=== PATIENT | male | born 1960 | race African-American/Black ===

== ENCOUNTER 2018-11-15 15:45 | Emergency (ER) | payer SELFPAY ==
[2018-11-15 16:53] LABS: #Basophils 0.1 thou/uL (0.0-0.2); #Eosinphils 0.2 thou/uL (0.0-0.7); #Lymphocytes 1.4 thou/uL (1.20-3.40); #Monocytes 0.6 thou/uL (0.11-0.59); #Neutrophils 3.2 thou/uL (1.40-6.50); %Basophils 1.5 % (0.0-1.0); %Lymphocytes 26.1 % (21.0-51.0); %Monocytes 11.2 % (0.0-10.0); %Neutrophils 57.2 % (42.0-75.0); Hemoglobin 15.7 g/dL (14.0-18.0); Mean Corpuscular HGB CONC 34.8 g/dL (32.0-36.0); Mean Corpuscular Hemoglobin 32.8 pg (27.0-31.0); Mean Corpuscular Volume 94.4 fL (78.0-98.0); Mean Platelet Volume 7.2 fL (7.4-10.4); Platelet Count 301 thou/uL (130-400); RBC Distribution Width 11.5 % (11.5-14.5); Red Blood Cell (RBC) Count 4.78 mill/uL (4.70-6.10); White Blood Cell (WBC) Count 5.5 thou/uL (4.8-10.8)
[2018-11-15 17:15] LABS: ALT (SGPT) 117 U/L (8-55); AST (SGOT) 63 U/L (5-34); Albumin 4.4 g/dL (3.5-5.0); Alkaline Phosphatase 70 U/L (40-150); Anion Gap 13 mmol/L (10-20); BUN (Urea Nitrogen) 11 mg/dL (8.4-25.7); Bilirubin, Total 0.6 mg/dL (0.2-1.2); Calc. Creatinine Clearance 0 mL/min (70-130); Calcium 9.4 mg/dL (7.8-10.44); Carbon Dioxide 22 mmol/L (22-29); Chloride 109 mmol/L (98-107); Estimated GFR-MDRD 76; Globulin 3.7 g/dL (2.4-3.5); Glucose 108 mg/dL (70-105); Potassium 3.2 mmol/L (3.5-5.1); Protein, Total 8.1 g/dL (6.0-8.3); Sodium 141 mmol/L (136-145)
[2018-11-15] MEDS ORDERED: Pot Chloride/Pot Bicarb/Cit Ac 25 mEq Effervescent Tablet PO SCH (17:30)
== END 2018-11-15 18:17 | disposition home or self-care (01) ==
LOC: ERS 15:45
DX: R19.7 Diarrhea, unspecified (principal); E87.6 Hypokalemia; I10 Essential (primary) hypertension; F17.210 Nicotine dependence, cigarettes, uncomplicated; Z79.899 Other long term (current) drug therapy
CPT/HCPCS: 80053; 85025; 96360

== ENCOUNTER 2020-08-17 02:11 | Inpatient (IN) | payer OTHER, SELFPAY ==
[2020-08-17 02:32] LABS: #Basophils 0.1 thou/uL (0.0-0.2); #Eosinphils 0.1 thou/uL (0.0-0.7); #Lymphocytes 1.4 thou/uL (1.20-3.40); #Monocytes 0.9 thou/uL (0.11-0.59); #Neutrophils 4.9 thou/uL (1.40-6.50); %Basophils 1.2 % (0.0-1.0); %Eosinophils 1.6 % (0.0-10.0); %Lymphocytes 18.7 % (21.0-51.0); %Monocytes 12.2 % (0.0-10.0); %Neutrophils 66.2 % (42.0-75.0); Hemoglobin 14.3 g/dL (14.0-18.0); Mean Corpuscular Hemoglobin 32.1 pg (27.0-31.0); Mean Corpuscular Volume 94.4 fL (78.0-98.0); Mean Platelet Volume 6.6 fL (7.4-10.4); Platelet Count 368 thou/uL (130-400); RBC Distribution Width 11.8 % (11.5-14.5); Red Blood Cell (RBC) Count 4.44 mill/uL (4.70-6.10); White Blood Cell (WBC) Count 7.4 thou/uL (4.8-10.8)
[2020-08-17] MEDS ORDERED: predniSONE 20 MG TAB ONE (02:47)
[2020-08-17] MEDS ORDERED: Furosemide 40 MG/4 ML VIAL ONE ×2 (02:47→10:23)
[2020-08-17] MEDS ORDERED: cefTRIAXone\\ROCEPHIN 1 GM VIAL ONE (02:47)
[2020-08-17 02:52] LABS: ALT (SGPT) 26 U/L (8-55); AST (SGOT) 23 U/L (5-34); Albumin 3.6 g/dL (3.5-5.0); Alkaline Phosphatase 57 U/L (40-110); Anion Gap 14 mmol/L (10-20); BUN (Urea Nitrogen) 12 mg/dL (8.4-25.7); Bilirubin, Total 0.8 mg/dL (0.2-1.2); Calc. Creatinine Clearance 0 mL/min (70-130); Calcium 8.7 mg/dL (7.8-10.44); Carbon Dioxide 26 mmol/L (22-29); Chloride 106 mmol/L (98-107); Estimated GFR-MDRD 79; Globulin 3.6 g/dL (2.4-3.5); Glucose 116 mg/dL (70-105); Potassium 3.6 mmol/L (3.5-5.1); Protein, Total 7.2 g/dL (6.0-8.3); Sodium 142 mmol/L (136-145)
[2020-08-17 03:15] LABS: CKMB 5.5 ng/mL (0-6.6)
[2020-08-17 03:16] LABS: Lactic Acid 1.2 mmol/L (0.5-2.2)
[2020-08-17] MEDS ORDERED: Azithromycin 500 MG VIAL ONE (03:53)
[2020-08-17] MEDS ORDERED: Nitroglycerin 2% Ointment 1 INCH/1 GM Packet ONE (03:53)
[2020-08-17] MEDS ORDERED: Enoxaparin Sodium 100 MG/ML SYRINGE ONE (04:29)
[2020-08-17 07:04] LABS: SARS-CoV-2 NAA Rapid Test Not Detected (NotDetected)
--- NOTE | 2020-08-17 07:09 | RAD ---
RADIOGRAPH CHEST 1 VIEW: DATE: 08/17/2020 TIME: 2:28 AM HISTORY: 59-year-old male with dyspnea COMPARISON: none FINDINGS: Mild cardiomegaly. Diffuse groundglass and nodular interstitial infiltrates bilaterally. No effacemen t of lateral costophrenic angles. No pneumothorax. IMPRESSION: 1) groundglass and nodular interstitial infiltrates diffusely, especially in lower lung zones, especi ally on the right. 2.) Mild cardiomegaly
--- NOTE | 2020-08-17 08:04 | CT ---
PRELIMINARY REPORT/[facility]/EMERGENCY AFTER HOURS PROCEDURE: EXAM: CTA Chest with Intravenous Contrast CLINICAL HISTORY: DYSPNEA X3 NIGHTS; PT LAYS DOWN AND COPD IS EXACERBATED WITH DIFFICULTY BREATHING TECHNIQUE: Axial CTA images of the chest with intravenous contrast. Three-dimensional MIP/volume rendered reform ations were performed. CONTRAST: With; ISOVUE 370, 90ML COMPARISON: None provided. FINDINGS: PULMONARY ARTERIES There is no intraluminal filling defect suspicious for PE. AORTA No thoracic aortic aneurysm or dissection. LUNGS bilateral groundglass opacities, hyperinflated lungs, cysts versus emphysematous changes in the upper lobes. PLEURAL SPACES No pleural effusion. No pneumothorax. HEART AND MEDIASTINUM Marked cardiomegaly. No significant pericardial effusion. LYMPH NODES There is right hilar adenopathy. BONES No focal osseous abnormality or acute fracture. CHEST WALL AND UPPER ABDOMEN Images through the upper abdomen are unremarkable. The chest wall is unremarkable. IMPRESSION: Bilateral groundglass opacities suggestive of COVID. Marked cardiomegaly. Moderate sized right pleural effusion. Coronary vascular calcifications, advanced for age, recommend workup for coronary artery disease. One month follow-up CT recommended to reassess the adenopathy that is present. ELECTRONICALLY SIGNED BY: Evan Washington MD Aug 17, 2020 3:29:05 AM NEUROSURGICAL PHYSICIAN ASSISTANT This report is intended for review by the ordering physician only, in accordance of law. If you recei ve this report in error, please call [facility] at [phone]. FINAL REPORT EMERGENCY AFTER HOURS CTA CHEST: Axial tomograms obtained with multiplanar reconstruction and 3D postprocessing. FINDINGS: No evidence of pulmonary embolus. There is mediastinal and hilar adenopathy. There are ground-glass t ype infiltrates seen throughout both lungs, more prominent in the lower lobes. Small right pleural ef fusion. I am in agreement with the preliminary report issued by [facility]. POS: AGW
[2020-08-17 08:54] LABS: Troponin I 0.043 ng/mL (< 0.028)
[2020-08-17] MEDS ORDERED: Electrolyte Replacement Protoc 1 EACH EACH FS SCH (09:00)
[2020-08-17] MEDS ORDERED: Electrolyte Replacement Protocol FS PRN (09:15)
[2020-08-17 09:23] LABS: #Lymphocytes 0.6 thou/uL (1.20-3.40); #Monocytes 0.1 thou/uL (0.11-0.59); #Neutrophils 4.9 thou/uL (1.40-6.50); %Eosinophils 0.2 % (0.0-10.0); %Monocytes 2.3 % (0.0-10.0); %Neutrophils 87.5 % (42.0-75.0); Hemoglobin 15.4 g/dL (14.0-18.0); Mean Corpuscular HGB CONC 33.1 g/dL (32.0-36.0); Mean Corpuscular Hemoglobin 31.5 pg (27.0-31.0); Platelet Count 379 thou/uL (130-400); Red Blood Cell (RBC) Count 4.89 mill/uL (4.70-6.10); White Blood Cell (WBC) Count 5.6 thou/uL (4.8-10.8)
[2020-08-17] MEDS ORDERED: Furosemide 40 MG/4 ML VIAL SLOW IVP SCH (09:30)
[2020-08-17 09:53] LABS: ALT (SGPT) 30 U/L (8-55); AST (SGOT) 31 U/L (5-34); Albumin 3.8 g/dL (3.5-5.0); Alkaline Phosphatase 57 U/L (40-110); Anion Gap 17 mmol/L (10-20); BUN (Urea Nitrogen) 11 mg/dL (8.4-25.7); Bilirubin, Total 1.1 mg/dL (0.2-1.2); Calc. Creatinine Clearance 118 mL/min (70-130); Carbon Dioxide 22 mmol/L (22-29); Chloride 105 mmol/L (98-107); Estimated GFR-MDRD Greater than 90; Globulin 4.6 g/dL (2.4-3.5); Glucose 144 mg/dL (70-105); Protein, Total 8.4 g/dL (6.0-8.3); Sodium 140 mmol/L (136-145)
[2020-08-17] MEDS ORDERED: Aspirin Chewable 81 MG TAB ONE (10:23)
[2020-08-17] MEDS: Aspirin Chewable 81 MG TAB PO SCH (10:45)
[2020-08-17] MEDS: Atorvastatin Calcium 40 MG TAB PO SCH (10:45)
[2020-08-17 12:54] LABS: Actual Bicarbonate (HCO3a) 26.8 mEq/L (22-28); Analyzer IN Cardio ER; Base Excess (BEa) 2.2 mEq/L (-2.0 to +3.0); CO2 Tension 41.6 mmHg (35.0-45.0); Calcium, Ionized (arterial) 1.16 mmol/L (1.12-1.30); Carboxyhemoglobin (COHb) 1.3 gm% (0.0-3.0); Hemoglobin (Hb) 15.8 g/dL (14.0-18.0); O2 Tension (PaO2), arterial 63.2 mmHg (80.0-100.0); Potassium - ABG Lab 3.58 mmol/L (3.70-5.30); pH, Arterial 7.43 (7.35-7.45)
[2020-08-17 12:55] LABS: Puncture Site RRA
[2020-08-17] MEDS ORDERED: Iopamidol 370 76% 100 ML VIAL ONE (13:24)
[2020-08-17] MEDS ORDERED: Acetaminophen 325 MG TAB PO PRN (13:32)
[2020-08-17 13:48] VITALS: BMI 28.9
[2020-08-17] MEDS ORDERED: Spironolactone 25 MG TAB PO SCH (14:15)
[2020-08-17] MEDS: Ipratropium/Albuterol Sulfate 4 GM AER IH SCH ×2 (14:38→21:54)
--- NOTE | 2020-08-17 15:02 | CON ---
DATE OF CONSULTATION: CONSULTING PHYSICIAN: Ileana Snowden MD HISTORY OF PRESENT ILLNESS: The patient is a 59-year-old gentleman with history of cardiomyopathy, who presents with increasing dyspnea. The patient was seen at [facility] early this year for congestive heart failure. He underwent an echocardiogram. The patient was found to have an ejection fraction of 35% to 40% with the inferior wall and anterior wall akinetic. The patient was treated with medical therapy. The patient states he has been compliant with medication. He has not had any further followup. The patient presented with increasing dyspnea. The patient denies having any chest discomfort. He states that he has become progressively more short of breath. He denies having any fever. PAST MEDICAL HISTORY: 1. Congestive heart failure. 2. Hypertension. PAST SURGICAL HISTORY: None. SOCIAL HISTORY: Long history of illicit drug use and tobacco abuse. FAMILY HISTORY: Strong family history of heart disease. ALLERGIES: NO KNOWN DRUG ALLERGIES. MEDICATIONS: 1. Losartan 50 daily. 2. Aspirin 81 daily. 3. Lipitor 40 at bedtime. PHYSICAL EXAMINATION: VITAL SIGNS: Blood pressure 118/74, heart rate was 83. Physical exam was deferred due to with suspected COVID. LABORATORY RESULTS: White blood cell count 5.6, hemoglobin 15.4, hematocrit 46.5, platelets are 379. Sodium was 140,, potassium 4.0, chloride 105, bicarbonate 22, BUN 11, creatinine 0.9, and glucose 144. EKG normal sinus rhythm, left atrial enlargement with a left bundle-branch block. IMPRESSION: 1. Congestive heart failure. 2. COVID positive possible 3. Severe cardiomyopathy. 4. Left bundle-branch block. 5. Illicit drug use. 6. Tobacco abuse. PLAN: This unfortunate gentleman has now developed a severe cardiomyopathy and echocardiogram revealed a left ventricular ejection fraction of only 10% to 15%. The patient also has a CT scan as very suggestive of a COVID pneumonia. From a cardiac standpoint, he has been diuresed with IV Lasix. We would recommend adding spironolactone. The patient should be on Entresto and this medication will be started during this hospitalization. The patient will also need to be on a beta-angel therapy. The patient will undergo an ID consultation to see if he has COVID pneumonitis. The patient's prognosis is very guarded. Job ID: [id number] [facility]
[2020-08-17] MEDS: Morphine 4 MG/ML VIAL SLOW IVP PRN (21:54)
--- NOTE | 2020-08-18 00:57 | HP ---
CHIEF COMPLAINT: Shortness of breath. HISTORY OF PRESENT ILLNESS: The patient is a very pleasant 59-year-old male, who presents to the hospital with complaints of shortness of breath going on for the past few days. The patient states that he has been compliant with his medications. However, he has been having worsening shortness of breath on exertion and also when he is sleeping at night. He denies any fevers or chills. He states that he has been having some sputum production which has been greenish in color. The patient stated that he came into the hospital since his shortness of breath gotten worse. He denies any chest tightness, however, complains of abdominal pain and chest pain because of the cough. PAST MEDICAL HISTORY: He has a history of hypertension, COPD, per patient. PAST SURGICAL HISTORY: Denies. SOCIAL HISTORY: He has a history of tobacco abuse and drug use. Denies any drinking history. He is a full code. Lives alone. FAMILY HISTORY: History of heart disease. He also has a history of congestive heart failure. ALLERGIES: NO KNOWN DRUG ALLERGIES. MEDICATIONS: 1. Aspirin 81 mg daily. 2. Lipitor 20 mg daily. 3. Losartan 50 mg daily. REVIEW OF SYSTEMS: All negative, except for the ones mentioned above in the HPI. PHYSICAL EXAMINATION: VITAL SIGNS: As of the following; temperature 98.6, 89, 20, 96% on 2 L, 132/74. GENERAL: He is awake, alert, and oriented x3. Does not appear in distress. CV: S1 AND S2 present. No murmurs, rubs, gallops. LUNGS: Have decreased crackles to bilateral lower lung bases. ABDOMEN: Soft. Bowel sounds are present x2. Mild pain upon palpation to all around abdominal wall area. NEUROVASCULAR: No focal deficits noted. SKIN: No cuts, lesions, or bruises noted. LOWER EXTREMITIES: No edema. Pedal pulses are present x2. LABORATORY RESULTS: WBCs of 7.4, hemoglobin of 14.3, hematocrit of 41.9, his platelets are 368. Chemistry, sodium 140, potassium 4.0, BUN of 11, creatinine 0.90. His LDH is 346. His troponin is mildly elevated at 0.043 with mildly elevated CRP of 0.94. His serologies for COVID was negative. However, the patient's CTA was negative for any acute PE, however, had some bilateral ground glass opacity suggesting of COVID. The patient does have some mediastinal hilar adenopathy also. Laboratory results are as of the following. The patient's blood gas . Chemistry: Sodium of 140, potassium of 4.0, BUN of 11, creatinine 0.90. LDH of 346. C-reactive protein 0.94. ASSESSMENT AND PLAN: The patient is a very pleasant 59-year-old male presents to the hospital with shortness of breath. 1. Acute hypoxic respiratory failure. The patient initially was significantly hypoxic, was on BiPAP then he was downgraded to 3 L nasal cannula. The patient's CT does indicate possible COVID. However, he states that he has been having a cough and colored sputum production for the past 3 or 4 days. I will start him on some prophylactic community-acquired pneumonia antibiotics. I am hesitant to take him off COVID precautions. I will get Infectious Disease for further consultation since his EKG did indicate left bundle branch block, which I am concerned that this maybe new. I do not have previous EKG for comparison. We will put him on aspirin and statin. Cardiology has been consulted. Also, we will order an echocardiogram. 2. Shortness of breath, most likely possible COVID versus heart failure. The patient will continue to receive diuretics. However, we will continue antibiotics for now. I am not sure if this is viral versus bacterial. However, the CT scan upon my interpretation does not appear to be bacterial. No consolidation is noted. This could also be pulmonary congestion or pulmonary edema that could present this way. 3. Hypertension. We will continue his home medications. 4. Chronic obstructive pulmonary disease, unclear if this is an acute exacerbation versus heart failure exacerbation. I will go ahead and put him on some Solu-Medrol 40 mg daily and then go from there. 5. Deep venous thrombosis prophylaxis. We will put the patient on SCDs and subcu Lovenox. Job ID: [id number]
--- NOTE | 2020-08-18 01:30 | CON ---
DATE OF CONSULTATION: 08/17/2020 REASON FOR CONSULTATION: Evaluate respiratory symptoms and possibility of SARS-CoV-2 infection. HISTORY OF PRESENT ILLNESS: A 59-year-old who has one prior visit to the emergency room at the beginning of 2019, when he presented with diarrhea and a history of hypertension and back pain. His vital signs then were pretty unremarkable. The diagnosis was diarrhea and low potassium. He was released after that. There were no further visits until now. This time, he has been sick now for about 4 days with progressively worsening dyspnea, orthopnea, some cough. No sputum production. No fever or chills. No anosmia. No headaches. No chest pain. No back pain. No abdominal pain or diarrhea. No genitourinary symptoms. On arrival, his BP was 190/120 and he took two doses of nitro and levels came down. His O2 saturations were 80% on room air. His BP went down to 130/90, respiratory rate 37, temperature 98.5, O2 saturations were up to 98 on a nonrebreathing Ventimask. The patient's lung exam showed wheezing, poor air movement. Heart exam showed tachycardia. Normal S1, S2. Abdomen is soft. LABORATORY DATA: Initial findings included a white cell count of 7.4, lymphocytes are 1.4, hemoglobin 14, platelets 368. D-dimer 0.82. A pH of 7.43, pCO2 of 41, PO2 of 63. Sodium 140, creatinine 0.9. Liver profile normal. CRP was 0.94, ferritin 122. SARS-COV RNA PCR was not detected. IMAGING STUDIES: A CT of chest showed no pulmonary embolism. Lungs with bilateral ground-glass opacities and some cysts versus emphysematous changes. Marked cardiomegaly in the chest x-ray with the same opacities seen. Echocardiogram showed EF 10% to 15%, moderately increased left ventricular size. Currently, Mr. Campos is awake and sitting up in bed. He appears comfortable. He has O2 per nasal cannula. PAST MEDICAL HISTORY: Includes hypertension, prior history of alcohol dependency syndrome, history of CHF and "COPD." PAST SURGICAL HISTORY: Negative. 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 He lives in the area with his , has children, but they are grown up. Still smoking about half a pack a day. FAMILY HISTORY: Coronary artery disease. ALLERGIES: NONE. CURRENT MEDICATIONS: 1. Aspirin. 2. Azithromycin. 3. Rocephin. 4. Furosemide. 5. Methylprednisolone. PHYSICAL EXAMINATION: VITAL SIGNS: Temperature 98.6, BP 130/70, heart rate 89, respiratory rate 20, O2 saturation 96 with 2 L nasal cannula. SKIN EXAM: Normal. There is no lymphadenopathy. HEENT: Ocular movements conjugate. Oral cavity normal. NECK: Supple with positive jugular vein distention. LUNGS: Basilar crackles. No wheezing. S1, S2. Regular rate with an S3 noticeable. ABDOMEN: Soft, not distended or tender. No ascites. No bladder distention. EXTREMITIES: No edema. Pulses 1+ in dorsalis pedis. Moves extremities equally. NEUROLOGIC: Cognitive function appears to be intact. Dr. Alston has evaluated the patient. His assessment was CHF, and a CT scan suggestive of COVID pneumonia. ASSESSMENT: 1. Hypertension. 2. Congestive heart failure with advanced cardiomyopathy, not on any treatment. 3. Reports history of chronic obstructive pulmonary disease, but not confirmed with PFTs. His CT scan is suggestive of emphysema. 4. Chronic smoking. 5. Prior history of alcohol dependency syndrome. 6. CT findings that could be suspicious for COVID. DISCUSSION: The differential diagnosis includes pulmonary edema associated with ischemic or non-ischemic cardiomyopathy with possible superimposed atypical pneumonia due to SARS-CoV-2. There are a number of features that are not typical of COVID, the absence of fever and anosmia argue against it but do not rule it out. The initial normal lymphocyte count and the rapid improvement in his oxygenation with diuresis would argue against COVID infection, so I think we need to repeat the test. If the second test is negative, I would stop methylprednisolone, I would recommend to concentrate on managing his cardiomyopathy and repeat the x-rays and see if the infiltrates clear, that would pretty much settle the diagnosis. Sometimes it may be difficult to diagnose SARS-Cov-2 infection when the infection is limited to the lower respiratory tract with no viral replication in the upper respiratory tract. In those cases, the only way to establish the diagnosis is via antibody testing, and we will consider submitting antibody testing in the next few days depending on the clinical, radiological course and the results of the second COVID test. Job ID: [id number] [facility]
[2020-08-18] MEDS: Acetaminophen/Codeine 30-300mg Tablet PO PRN ×2 (02:14→15:33)
[2020-08-18] MEDS: Guaifenesin DM 100-10/5 ML UDCUP PO PRN ×2 (02:17→07:00)
[2020-08-18] MEDS ORDERED: cefTRIAXone\\ROCEPHIN 2 GM in Sodium Chloride 0.9% 100 ML IVPB SCH (03:00)
[2020-08-18] MEDS ORDERED: Azithromycin 500 MG in Sodium Chloride 0.9% 250 ML 250 ML IVPB SCH (04:00)
[2020-08-18 05:49] LABS: #Basophils 0.1 thou/uL (0.0-0.2); #Eosinphils 0.1 thou/uL (0.0-0.7); #Lymphocytes 2.3 thou/uL (1.20-3.40); #Monocytes 1.6 thou/uL (0.11-0.59); #Neutrophils 7.1 thou/uL (1.40-6.50); %Basophils 0.8 % (0.0-1.0); %Lymphocytes 20.8 % (21.0-51.0); %Monocytes 13.8 % (0.0-10.0); %Neutrophils 63.6 % (42.0-75.0); Hemoglobin 15.2 g/dL (14.0-18.0); Mean Corpuscular HGB CONC 33.1 g/dL (32.0-36.0); Mean Corpuscular Hemoglobin 31.2 pg (27.0-31.0); Mean Corpuscular Volume 94.3 fL (78.0-98.0); Mean Platelet Volume 6.8 fL (7.4-10.4); Platelet Count 400 thou/uL (130-400); Red Blood Cell (RBC) Count 4.87 mill/uL (4.70-6.10); White Blood Cell (WBC) Count 11.2 thou/uL (4.8-10.8)
[2020-08-18 06:13] LABS: Anion Gap 10 mmol/L (10-20); BUN (Urea Nitrogen) 17 mg/dL (8.4-25.7); Calc. Creatinine Clearance 110 mL/min (70-130); Carbon Dioxide 31 mmol/L (22-29); Chloride 103 mmol/L (98-107); Estimated GFR-MDRD Greater than 90; Glucose 108 mg/dL (70-105); Potassium 3.2 mmol/L (3.5-5.1); Sodium 141 mmol/L (136-145)
[2020-08-18] MEDS: Ipratropium/Albuterol Sulfate 4 GM AER IH SCH ×4 (07:01→21:47)
[2020-08-18] MEDS: Morphine 4 MG/ML VIAL SLOW IVP PRN ×2 (07:01→21:28)
[2020-08-18] MEDS: Aspirin Chewable 81 MG TAB PO SCH (08:33)
[2020-08-18] MEDS: Atorvastatin Calcium 40 MG TAB PO SCH (08:34)
[2020-08-18] MEDS: Spironolactone 25 MG TAB PO SCH (08:34)
[2020-08-18] MEDS ORDERED: Furosemide 40 MG/4 ML VIAL SLOW IVP SCH (09:00)
[2020-08-18] MEDS ORDERED: methylPREDNISolone Sod Succ 40 MG VIAL IVP SCH (09:00)
[2020-08-18] MEDS ORDERED: Potassium Chloride 20 MEQ TAB PO SCH (09:30)
[2020-08-18 09:56] LABS: SARS-CoV-2 NAA Rapid Test Not Detected (NotDetected)
[2020-08-18 10:22] LABS: SARS-CoV-2 IgG Ab Non-Reactive (NonReactive); SARS-CoV-2 IgG Index 0.05 S/CO (< 1.40)
[2020-08-18 13:15] LABS: Cocaine Metabolite Screen Not Detected (NotDetected); Medtox Reader # READER 4; Phencyclidine (PCP) Not Detected (NotDetected); THC/Cannabinoid Screen Not Detected (NotDetected)
[2020-08-18 13:16] LABS: Amphetamine Not Detected (NotDetected); Barbiturates Screen Not Detected (NotDetected); Benzodiazepine Screen Not Detected (NotDetected); Medtox Control Line Valid? VALID (VALID); Methadone Not Detected (NotDetected); Methamphetamine Not Detected (NotDetected); Opiate Screen Detected (NotDetected); Oxycodone Screen Not Detected (NotDetected); Tricyclic Screen Not Detected (NotDetected)
--- NOTE | 2020-08-18 13:30 | PDOC.HOSPP ---
- Subjective Encounter Date: 08/18/20 Encounter Time: 12:00 Subjective: breathing better now no chest pain or palp is eating well - Objective Vital Signs & Weight: Vital Signs (12 hours) Temp Pulse Resp BP Pulse Ox 08/18/20 11:54 97.6 F 88 20 144/86 H 98 08/18/20 08:42 97.9 F 89 16 142/89 H 98 08/18/20 05:16 99 08/18/20 04:00 98.1 F 92 18 142/87 H 99 Weight Weight 201 lb 3.2 oz I&O: 08/17/20 08/18/20 08/19/20 06:59 06:59 06:59 Intake Total 1180 Output Total 835 Balance 345 Result Diagrams: 08/18/20 05:16 08/18/20 05:16 Hospitalist ROS - Medication Medications: Active Medications Generic Name Dose Route Start Last Admin Trade Name Freq PRN Reason Stop Dose Admin Acetaminophen/Codeine Phosphate 1 tab 08/17/20 12:20 08/18/20 02:14 Acetaminophen/Codeine 30-300mg Tablet PO 1 tab Q6H PRN Administration Pain Albuterol/Ipratropium 0 gm 08/17/20 15:00 08/18/20 11:50 Ipratropium/Albuterol Sulfate 4 Gm Aer IH 1 inh [id number] LUCERO Administration Aspirin 81 mg 08/17/20 09:00 08/18/20 08:33 Aspirin Chewable 81 Mg Tab PO 81 mg DAILY LUCERO Administration Atorvastatin Calcium 40 mg 08/17/20 09:00 08/18/20 08:34 Atorvastatin Calcium 40 Mg Tab PO 40 mg DAILY LUCERO Administration Guaifenesin/Dextromethorphan 15 ml 08/17/20 23:13 08/18/20 07:00 Guaifenesin Dm 100-10/5 Ml Udcup PO 15 ml Q4H PRN Administration Cough Morphine Sulfate 4 mg 08/17/20 12:20 08/18/20 07:01 Morphine 4 Mg/Ml Vial SLOW IVP 4 mg Q4H PRN Administration Moderate to Severe Pain (6-10) Spironolactone 25 mg 08/18/20 08:00 08/18/20 08:34 Spironolactone 25 Mg Tab PO 25 mg QAM-WM LUCERO Administration - Exam General Appearance: awake alert Eye: PERRL, anicteric sclera ENT: no oropharyngeal lesions, moist mucosa Neck: supple, no JVD Heart: RRR, no murmur Respiratory: no wheezes, no rales, rhonchi Gastrointestinal: soft, non-tender, non-distended, normal bowel sounds Extremities: no cyanosis, no edema Neurological: cranial nerve grossly intact, no focal deficits Psychiatric: normal affect, A&O x 3 Hosp A/P (1) Acute exacerbation of CHF (congestive heart failure) Code(s): I50.9 - HEART FAILURE, UNSPECIFIED Status: Acute Qualifiers: Heart failure type: combined systolic and diastolic Qualified Code(s): I50.43 - Acute on chronic combined systolic (congestive) and diastolic (congestive) heart failure (2) Cardiomyopathy Code(s): I42.9 - CARDIOMYOPATHY, UNSPECIFIED Status: Chronic Qualifiers: Cardiomyopathy type: unspecified Qualified Code(s): I42.9 - Cardiomyopathy, unspecified (3) Acute respiratory failure with hypoxia Code(s): J96.01 - ACUTE RESPIRATORY FAILURE WITH HYPOXIA Status: Resolved (4) Dyslipidemia Code(s): E78.5 - HYPERLIPIDEMIA, UNSPECIFIED Status: Chronic (5) Non compliance w medication regimen Code(s): Z91.14 - PATIENT'S OTHER NONCOMPLIANCE WITH MEDICATION REGIMEN Status: Acute (6) Tobacco abuse Code(s): Z72.0 - TOBACCO USE Status: Chronic - Plan gentle diuresis covid 19 pcr x2 is -ve ef of 15% continue asp, lipitor, entresto, spironolatone, nebs prn hemostable medications are being 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
[2020-08-18] MEDS: Carvedilol 3.125 MG TAB PO SCH (17:08)
[2020-08-18] MEDS: Sacubitril 49 MG/Valsartan 51 MG TABLET PO SCH (21:24)
[2020-08-19] MEDS: Sacubitril 49 MG/Valsartan 51 MG TABLET PO SCH ×2 (08:19→20:33)
[2020-08-19] MEDS: Spironolactone 25 MG TAB PO SCH (08:20)
[2020-08-19] MEDS: Aspirin Chewable 81 MG TAB PO SCH (08:20)
[2020-08-19] MEDS: Carvedilol 3.125 MG TAB PO SCH ×2 (08:20→18:05)
[2020-08-19] MEDS: Atorvastatin Calcium 40 MG TAB PO SCH (08:20)
[2020-08-19] MEDS: Ipratropium/Albuterol Sulfate 4 GM AER IH SCH ×4 (08:26→20:33)
[2020-08-19 09:40] LABS: Anion Gap 14 mmol/L (10-20); BUN (Urea Nitrogen) 15 mg/dL (8.4-25.7); Calc. Creatinine Clearance 107 mL/min (70-130); Calcium 8.9 mg/dL (7.8-10.44); Carbon Dioxide 28 mmol/L (22-29); Chloride 104 mmol/L (98-107); Estimated GFR-MDRD Greater than 90; Glucose 127 mg/dL (70-105); Potassium 3.5 mmol/L (3.5-5.1); Sodium 142 mmol/L (136-145)
[2020-08-19] MEDS ORDERED: Potassium Chloride 20 MEQ TAB PO SCH (10:15)
--- NOTE | 2020-08-19 11:00 | PDOC.HOSPP ---
- Subjective Encounter Date: 08/19/20 Encounter Time: 10:56 Subjective: Mr. Campos was seen today in follow-up CHF exacerbation. He says he is breathing better. He is less short of breath. - Objective Vital Signs & Weight: Vital Signs (12 hours) Temp Pulse Resp BP Pulse Ox 08/19/20 07:35 98.3 F 75 12 141/85 H 95 08/19/20 04:07 98.5 F 82 16 145/99 H 97 Weight Weight 196 lb 9.6 oz I&O: 08/18/20 08/19/20 08/20/20 06:59 06:59 06:59 Intake Total 1180 960 Output Total 835 1000 Balance 345 -40 Result Diagrams: 08/18/20 05:16 08/19/20 09:10 Hospitalist ROS - Medication Medications: Active Medications Generic Name Dose Route Start Last Admin Trade Name Freq PRN Reason Stop Dose Admin Acetaminophen/Codeine Phosphate 1 tab 08/17/20 12:20 08/18/20 15:33 Acetaminophen/Codeine 30-300mg Tablet PO 1 tab Q6H PRN Administration Pain Albuterol/Ipratropium 0 gm 08/17/20 15:00 08/19/20 08:26 Ipratropium/Albuterol Sulfate 4 Gm Aer IH 1 inh [id number] LUCERO Administration Aspirin 81 mg 08/17/20 09:00 08/19/20 08:20 Aspirin Chewable 81 Mg Tab PO 81 mg DAILY LUCERO Administration Atorvastatin Calcium 40 mg 08/17/20 09:00 08/19/20 08:20 Atorvastatin Calcium 40 Mg Tab PO 40 mg DAILY LUCERO Administration Carvedilol 3.125 mg 08/18/20 17:00 08/19/20 08:20 Carvedilol 3.125 Mg Tab PO 3.125 mg BID-WM LUCERO Administration Guaifenesin/Dextromethorphan 15 ml 08/17/20 23:13 08/18/20 07:00 Guaifenesin Dm 100-10/5 Ml Udcup PO 15 ml Q4H PRN Administration Cough Morphine Sulfate 4 mg 08/17/20 12:20 08/18/20 21:28 Morphine 4 Mg/Ml Vial SLOW IVP 4 mg Q4H PRN Administration Moderate to Severe Pain (6-10) Sacubitril/Valsartan 1 tab 08/18/20 21:00 08/19/20 08:19 Sacubitril 49 Mg/Valsartan 51 Mg Tablet PO 1 tab BID LUCERO Administration Spironolactone 25 mg 08/18/20 08:00 08/19/20 08:20 Spironolactone 25 Mg Tab PO 25 mg QAM-WM LUCERO Administration - Exam Eye: PERRL, anicteric sclera Neck: JVD Heart: RRR, no murmur, no gallops, no rubs, normal peripheral pulses Heart - other findings: + PMI is laterally displaced Respiratory: no wheezes, no ronchi, normal chest expansion, rales (at both bases) Gastrointestinal: soft, non-tender, non-distended, normal bowel sounds, no palpable masses, no hepatomegaly Extremities: no cyanosis, no clubbing (dimished pulses pulses, capillary refill, was a bit sluggish), no edema Hosp A/P (1) Acute exacerbation of CHF (congestive heart failure) Code(s): I50.9 - HEART FAILURE, UNSPECIFIED Status: Acute Qualifiers: Heart failure type: combined systolic and diastolic Qualified Code(s): I50.43 - Acute on chronic combined systolic (congestive) and diastolic (congestive) heart failure (2) Cardiomyopathy Code(s): I42.9 - CARDIOMYOPATHY, UNSPECIFIED Status: Chronic Qualifiers: Cardiomyopathy type: unspecified Qualified Code(s): I42.9 - Cardiomyopathy, unspecified (3) Tobacco abuse Code(s): Z72.0 - TOBACCO USE Status: Chronic (4) Acute respiratory failure with hypoxia Code(s): J96.01 - ACUTE RESPIRATORY FAILURE WITH HYPOXIA Status: Resolved - Plan * Acute respiratory failure- due to CHF exacerbation- continue Entresto, and Carvediolol\ * He is better compensated * HTN- blood pressure is stable- continue Carvediolol * COVID screen is negative * Discussed with Cardiology- plan is for cardiac cath tomorrow.
[2020-08-19] MEDS: Morphine 4 MG/ML VIAL SLOW IVP PRN ×2 (15:20→23:15)
[2020-08-20] MEDS: Ipratropium/Albuterol Sulfate 4 GM AER IH SCH ×4 (06:06→18:31)
[2020-08-20 07:04] LABS: Potassium 3.6 mmol/L (3.5-5.1)
[2020-08-20] MEDS ORDERED: Magnesium 2 GM/50 ML 2 GM in Premix Bag 1 BAG IVPB SCH (08:30)
[2020-08-20] MEDS: Aspirin Chewable 81 MG TAB PO SCH (08:41)
[2020-08-20] MEDS: Atorvastatin Calcium 40 MG TAB PO SCH (08:41)
[2020-08-20] MEDS: Spironolactone 25 MG TAB PO SCH (08:42)
[2020-08-20] MEDS: Carvedilol 3.125 MG TAB PO SCH (08:42)
[2020-08-20] MEDS: Sacubitril 49 MG/Valsartan 51 MG TABLET PO SCH ×2 (08:42→20:00)
[2020-08-20] MEDS: Morphine 4 MG/ML VIAL SLOW IVP PRN ×2 (08:48→20:03)
--- NOTE | 2020-08-20 11:17 | PDOC.HOSPP ---
- Subjective Encounter Date: 08/20/20 Encounter Time: 11:15 Subjective: Mr. Campos was seen today in follow-up of CHF exacerbation. He says his breathing is 100% better, but he continues to have the cough. He says he feels he would do better if the cough medication were scheduled instead of prn. - Objective Vital Signs & Weight: Vital Signs (12 hours) Temp Pulse Resp BP Pulse Ox 08/20/20 07:19 98.4 F 82 14 143/94 H 96 08/20/20 04:15 97.8 F 81 20 140/97 H 98 08/20/20 00:50 97.6 F 77 20 149/98 H 96 Weight Weight 199 lb 4.8 oz I&O: 08/19/20 08/20/20 08/21/20 06:59 06:59 06:59 Intake Total 960 1870 Output Total 1000 1999 Balance -40 -130 Result Diagrams: 08/18/20 05:16 08/20/20 06:32 Hospitalist ROS - Medication Medications: Active Medications Generic Name Dose Route Start Last Admin Trade Name Freq PRN Reason Stop Dose Admin Acetaminophen/Codeine Phosphate 1 tab 08/17/20 12:20 08/18/20 15:33 Acetaminophen/Codeine 30-300mg Tablet PO 1 tab Q6H PRN Administration Pain Albuterol/Ipratropium 0 gm 08/17/20 15:00 08/20/20 06:06 Ipratropium/Albuterol Sulfate 4 Gm Aer IH 1 inh [id number] LUCERO Administration Aspirin 81 mg 08/17/20 09:00 08/20/20 08:41 Aspirin Chewable 81 Mg Tab PO 81 mg DAILY LUCERO Administration Atorvastatin Calcium 40 mg 08/17/20 09:00 08/20/20 08:41 Atorvastatin Calcium 40 Mg Tab PO 40 mg DAILY LUCERO Administration Carvedilol 3.125 mg 08/18/20 17:00 08/20/20 08:42 Carvedilol 3.125 Mg Tab PO 3.125 mg BID-WM LUCERO Administration Morphine Sulfate 4 mg 08/17/20 12:20 08/20/20 08:48 Morphine 4 Mg/Ml Vial SLOW IVP 4 mg Q4H PRN Administration Moderate to Severe Pain (6-10) Sacubitril/Valsartan 1 tab 08/18/20 21:00 08/20/20 08:42 Sacubitril 49 Mg/Valsartan 51 Mg Tablet PO 1 tab BID LUCERO Administration Spironolactone 25 mg 08/18/20 08:00 08/20/20 08:42 Spironolactone 25 Mg Tab PO 25 mg QAM-WM LUCERO Administration - Exam Eye: PERRL, anicteric sclera Heart: RRR, no murmur, no gallops, no rubs, normal peripheral pulses Respiratory: CTAB, no rales, no ronchi Gastrointestinal: soft, non-tender, non-distended, normal bowel sounds, no palp able masses, no hepatomegaly Extremities: no cyanosis, no edema Hosp A/P (1) Acute exacerbation of CHF (congestive heart failure) Code(s): I50.9 - HEART FAILURE, UNSPECIFIED Status: Acute Qualifiers: Heart failure type: combined systolic and diastolic Qualified Code(s): I50.43 - Acute on chronic combined systolic (congestive) and diastolic (congestive) heart failure (2) Cardiomyopathy Code(s): I42.9 - CARDIOMYOPATHY, UNSPECIFIED Status: Chronic Qualifiers: Cardiomyopathy type: unspecified Qualified Code(s): I42.9 - Cardiomyopathy, unspecified (3) Tobacco abuse Code(s): Z72.0 - TOBACCO USE Status: Chronic (4) Acute respiratory failure with hypoxia Code(s): J96.01 - ACUTE RESPIRATORY FAILURE WITH HYPOXIA Status: Resolved - Plan * Acute respiratory failure- due to CHF exacerbation- continue Entresto, and Carvediolol * He is better compensated * His EF is around 10-15%. This is much lower than what he remembers. * Plan is for cardiac cath tomorrow * Cough is likely due to CHF- will schedule Guaifenesin * HTN- blood pressure is stable- continue Carvediolol * COVID screen is negative
[2020-08-20] MEDS: Guaifenesin DM 100-10/5 ML UDCUP PO SCH ×2 (11:32→16:56)
[2020-08-20] MEDS: Carvedilol 6.25 MG TAB PO SCH (16:54)
[2020-08-21] MEDS: Guaifenesin DM 100-10/5 ML UDCUP PO SCH ×5 (00:36→22:46)
[2020-08-21 05:35] LABS: Anion Gap 12 mmol/L (10-20); BUN (Urea Nitrogen) 23 mg/dL (8.4-25.7); Calc. Creatinine Clearance 99 mL/min (70-130); Calcium 8.6 mg/dL (7.8-10.44); Carbon Dioxide 26 mmol/L (22-29); Cardiac Risk 3.2 (Less than 4.5); Chloride 106 mmol/L (98-107); Cholesterol 125 mg/dl (< 200 Desired); Estimated GFR-MDRD 87; Glucose 106 mg/dL (70-105); HDL Cholesterol 39 mg/dL (>60 Neg Risk); LDL Cholesterol, Calculated 68 mg/dL; Potassium 4.1 mmol/L (3.5-5.1); Sodium 140 mmol/L (136-145); Triglycerides 91 mg/dL (Less than 150)
[2020-08-21] MEDS: Ipratropium/Albuterol Sulfate 4 GM AER IH SCH ×4 (07:06→19:18)
[2020-08-21] MEDS: Aspirin Chewable 81 MG TAB PO SCH (08:41)
[2020-08-21] MEDS: Sacubitril 49 MG/Valsartan 51 MG TABLET PO SCH ×2 (08:41→19:44)
[2020-08-21] MEDS: Carvedilol 6.25 MG TAB PO SCH ×2 (08:41→17:30)
[2020-08-21] MEDS: Spironolactone 25 MG TAB PO SCH (08:41)
[2020-08-21] MEDS: Atorvastatin Calcium 40 MG TAB PO SCH (08:41)
[2020-08-21] MEDS: Morphine 4 MG/ML VIAL SLOW IVP PRN ×2 (08:55→22:41)
[2020-08-21] MEDS ORDERED: Communication Order-Pharmacy FS SCH (09:15)
--- NOTE | 2020-08-21 15:01 | PDOC.HOSPP ---
- Subjective Encounter Date: 08/21/20 Encounter Time: 15:00 Subjective: Mr. Campos was seen today in follow-up of new onset CHF. He notes some back pain, and complains of pain in his legs off and on. - Objective Vital Signs & Weight: Vital Signs (12 hours) Temp Pulse Resp BP Pulse Ox 08/21/20 11:45 97.5 F L 76 18 113/78 97 08/21/20 08:25 96 08/21/20 07:16 98.0 F 69 18 131/85 96 08/21/20 07:06 98 08/21/20 04:00 97.8 F 88 18 132/80 98 Weight Weight 201 lb I&O: 08/20/20 08/21/20 08/22/20 06:59 06:59 06:59 Intake Total 18690 Output Total 1999 1869 Balance -130 -660 Result Diagrams: 08/18/20 05:16 08/21/20 04:56 Hospitalist ROS - Medication Medications: Active Medications Generic Name Dose Route Start Last Admin Trade Name Freq PRN Reason Stop Dose Admin Acetaminophen/Codeine Phosphate 1 tab 08/17/20 12:20 08/18/20 15:33 Acetaminophen/Codeine 30-300mg Tablet PO 1 tab Q6H PRN Administration Pain Albuterol/Ipratropium 0 gm 08/17/20 15:00 08/21/20 12:30 Ipratropium/Albuterol Sulfate 4 Gm Aer IH 1 inh [id number] LUCERO Administration Aspirin 81 mg 08/17/20 09:00 08/21/20 08:41 Aspirin Chewable 81 Mg Tab PO 81 mg DAILY LUCERO Administration Atorvastatin Calcium 40 mg 08/17/20 09:00 08/21/20 08:41 Atorvastatin Calcium 40 Mg Tab PO 40 mg DAILY LUCERO Administration Carvedilol 6.25 mg 08/20/20 17:00 08/21/20 08:41 Carvedilol 6.25 Mg Tab PO 6.25 mg BID-WM LUCERO Administration Guaifenesin/Dextromethorphan 15 ml 08/20/20 12:00 08/21/20 12:23 Guaifenesin Dm 100-10/5 Ml Udcup PO 15 ml Q6HR LUCERO Administration Morphine Sulfate 4 mg 08/17/20 12:20 08/21/20 08:55 Morphine 4 Mg/Ml Vial SLOW IVP 4 mg Q4H PRN Administration Moderate to Severe Pain (6-10) Sacubitril/Valsartan 1 tab 08/18/20 21:00 08/21/20 08:41 Sacubitril 49 Mg/Valsartan 51 Mg Tablet PO 1 tab BID LUCERO Administration Spironolactone 25 mg 08/18/20 08:00 08/21/20 08:41 Spironolactone 25 Mg Tab PO 25 mg QAM-WM LUCERO Administration - Exam Eye: PERRL, anicteric sclera Heart: RRR, no murmur, no gallops, no rubs Respiratory: CTAB, no wheezes, no rales, no ronchi, normal chest expansion, no tachypnea Gastrointestinal: soft, non-tender, non-distended, normal bowel sounds, no palpable masses, no hepatomegaly Extremities: no cyanosis Extremities - other findings: pulses are diminished bilaterally Hosp A/P (1) Acute exacerbation of CHF (congestive heart failure) Code(s): I50.9 - HEART FAILURE, UNSPECIFIED Status: Acute Qualifiers: Heart failure type: combined systolic and diastolic Qualified Code(s): I50.43 - Acute on chronic combined systolic (congestive) and diastolic ( congestive) heart failure (2) Cardiomyopathy Code(s): I42.9 - CARDIOMYOPATHY, UNSPECIFIED Status: Chronic Qualifiers: Cardiomyopathy type: unspecified Qualified Code(s): I42.9 - Cardiomyopathy, unspecified (3) Tobacco abuse Code(s): Z72.0 - TOBACCO USE Status: Chronic (4) Acute respiratory failure with hypoxia Code(s): J96.01 - ACUTE RESPIRATORY FAILURE WITH HYPOXIA Status: Resolved - Plan * Acute respiratory failure- due to CHF exacerbation- continue Entresto, and Carvediolol * He is better compensated * His EF is around 10-15%. This is much lower than what he remembers. * Plan is for cardiac cath tomorrow * Cough - i have never heard the patient coughing- he is requesting Promethazine- will observe for now * Lower extremity discomfort- will check arterial dopplers, and we have discussed smoking cessation- he is requesting Hydrocodone- will await doppler studies * HTN- blood pressure is stable- continue Carvediolol
--- NOTE | 2020-08-21 17:04 | ULT ---
US Arterial Doppler Lower Ext History: Lower extremity pain Comparison: None. Findings: Real-time grayscale, color and spectral analysis of the bilateral lower extremity arterial system was performed. Right side: Common femoral artery peak systolic velocity measures 67 cm/s with monophasic waveform. P roximal femoral artery peak systolic velocity measures 29.3 cm/s with monophasic waveform. The femoral artery peak systolic velocity measures 78.3 cm/s with monophasic waveform. Distal femoral art baltazar peak systolic velocity measures 38.1 cm second with monophasic waveform. Popliteal artery peak systolic velocity measures 24 cm/s with monophasic waveform. Anterior tibial ar patrice peak systolic velocity measures 18.9 cm/s with monophasic waveform. There is also parvus tardus and spectral broadening. Posterior tibial artery peak systolic velocity measures 16.7 cm/s with monophasic waveform and spectr al broadening. Dorsalis pedis artery peak systolic velocity measures 19.8 cm/s with monophasic waveform and spectral broadening of parvus tardus. Left side: Common femoral artery peak systolic velocity measures 72.2 cm/s with monophasic waveform. Proximal femoral artery peak systolic velocity measures 15.1 cm/s with monophasic waveform. Mid femoral artery peak systolic velocity measures 12.1 cm/s with monophasic waveform. Distal femoral art baltazar peak systolic velocity measures 8 cm/s with monophasic peristalsis wave form. Popliteal artery peak systolic velocity measures 18.8 cm/s with monophasic waveform. Posterior tibial artery peak systolic velocity measures 27 cm/s with monophasic waveform and spectral broadening. Anterior tibial artery peak systolic velocity measures 22.8 cm/s with monophasic waveform and spectra l broadening. Dorsalis pedis artery is without flow. Severe background calcifications. Impression: 1. Abnormally low peak systolic velocities in both lower extremities suggesting proximal stenosis. CT angiogram with runoff versus conventional angiogram with intervention recommended. 2. Absent flow left dorsalis pedis artery. 3. Low volume flow within the trifurcations bilaterally with spectral broadening and a component of p arvus tardus indicating diminished and possibly insufficient flow to the feet. 4. Focal elevation of peak systolic velocity between the right proximal and mid femoral artery sugges ting a hemodynamically significant stenosis. Transcribed Date/Time: 08/21/2020 5:32 PM
[2020-08-22] MEDS: Guaifenesin DM 100-10/5 ML UDCUP PO SCH ×4 (05:39→23:37)
[2020-08-22] MEDS: Ipratropium/Albuterol Sulfate 4 GM AER IH SCH ×4 (05:39→19:59)
[2020-08-22] MEDS: Aspirin Chewable 81 MG TAB PO SCH (05:40)
[2020-08-22] MEDS: Atorvastatin Calcium 40 MG TAB PO SCH (05:40)
[2020-08-22] MEDS: Carvedilol 6.25 MG TAB PO SCH ×2 (05:40→16:54)
[2020-08-22] MEDS: Spironolactone 25 MG TAB PO SCH ×2 (05:40→10:41)
[2020-08-22] MEDS: Sacubitril 49 MG/Valsartan 51 MG TABLET PO SCH ×2 (05:40→20:00)
[2020-08-22] MEDS: Morphine 4 MG/ML VIAL SLOW IVP PRN ×3 (05:47→20:17)
[2020-08-22] MEDS ORDERED: Verapamil 5 MG/2 ML VIAL ONE (08:40)
[2020-08-22] MEDS ORDERED: Heparin 10,000 UNITS/ 10 ML VIAL ONE (08:40)
[2020-08-22] MEDS ORDERED: Nitroglycerin 100MG/250ML BOT 250 ML ONE (08:40)
[2020-08-22] MEDS ORDERED: Midazolam HCl 2 mg/2 ml Vial ONE (08:48)
[2020-08-22] MEDS ORDERED: Fentanyl 100 MCG/2 ML VIAL ONE (08:48)
[2020-08-22] MEDS ORDERED: Iopamidol 370 76% 100 ML VIAL ONE (08:58)
[2020-08-22] MEDS ORDERED: Sodium Chloride 0.9% 200 ML IV PRN (09:12)
[2020-08-22] MEDS ORDERED: Nitroglycerin 0.4 MG TAB (25 Tab Bottle) SL PRN (09:12)
[2020-08-22] MEDS ORDERED: Acetaminophen/Codeine 30-300mg Tablet PO PRN ×2 (09:12)
[2020-08-22] MEDS ORDERED: Sodium Chloride 0.9% 1,000 ML IV SCH (09:15)
[2020-08-22] MEDS ORDERED: Carvedilol 6.25 MG TAB PO SCH (11:00)
--- NOTE | 2020-08-22 15:25 | PDOC.HOSPP ---
- Subjective Encounter Date: 08/22/20 Encounter Time: 15:23 Subjective: Mr. Campos was seen today in follow-up of new onset CHF. He does not have any new complaints. He admits to leg pain for years. It is worse with walking. - Objective Vital Signs & Weight: Vital Signs (12 hours) Temp Pulse Resp BP Pulse Ox 08/22/20 07:14 97.5 F L 61 18 130/80 98 08/22/20 03:34 98.1 F 68 15 124/74 97 Weight Weight 198 lb 14.4 oz I&O: 08/21/20 08/22/20 08/23/20 06:59 06:59 06:59 Intake Total 1210 1980 Output Total 3053 4940 Balance -364 -5417 Result Diagrams: 08/18/20 05:16 08/21/20 04:56 Hospitalist ROS - Medication Medications: Active Medications Generic Name Dose Route Start Last Admin Trade Name Freq PRN Reason Stop Dose Admin Albuterol/Ipratropium 0 gm 08/17/20 15:00 08/22/20 10:31 Ipratropium/Albuterol Sulfate 4 Gm Aer IH 1 inh [id number] LUCERO Administration Aspirin 81 mg 08/17/20 09:00 08/22/20 05:40 Aspirin Chewable 81 Mg Tab PO 81 mg DAILY LUCERO Administration Atorvastatin Calcium 40 mg 08/17/20 09:00 08/22/20 05:40 Atorvastatin Calcium 40 Mg Tab PO 40 mg DAILY LUCERO Administration Guaifenesin/Dextromethorphan 15 ml 08/20/20 12:00 08/22/20 12:00 Guaifenesin Dm 100-10/5 Ml Udcup PO Not Given Q6HR LUCERO Morphine Sulfate 4 mg 08/17/20 12:20 08/22/20 10:42 Morphine 4 Mg/Ml Vial SLOW IVP 4 mg Q4H PRN Administration Moderate to Severe Pain (6-10) Sacubitril/Valsartan 1 tab 08/18/20 21:00 08/22/20 05:40 Sacubitril 49 Mg/Valsartan 51 Mg Tablet PO 1 tab BID LUCERO Administration Sodium Chloride 10 ml 08/21/20 21:00 08/22/20 05:39 Flush - Normal Saline 10 Ml Syringe IVF 10 ml Q12HR LUCERO Administration Spironolactone 25 mg 08/18/20 08:00 08/22/20 10:41 Spironolactone 25 Mg Tab PO 25 mg QAM-WM LUCERO Administration - Exam Eye: PERRL, anicteric sclera Respiratory: CTAB, no wheezes, no rales, no ronchi, normal chest expansion Gastrointestinal: soft, non-tender, non-distended, normal bowel sounds, no palpable masses, no hepatomegaly Extremities: no cyanosis, no edema (right d.p. absent, and diminished on the left) Hosp A/P (1) Acute exacerbation of CHF (congestive heart failure) Code(s): I50.9 - HEART FAILURE, UNSPECIFIED Status: Acute Qualifiers: Heart failure type: combined systolic and diastolic Qualified Code(s): I50.43 - Acute on chronic combined systolic (congestive) and diastolic (congestive) heart failure (2) Cardiomyopathy Code(s): I42.9 - CARDIOMYOPATHY, UNSPECIFIED Status: Chronic Qualifiers: Cardiomyopathy type: unspecified Qualified Code(s): I42.9 - Cardiomyopathy, unspecified (3) Tobacco abuse Code(s): Z72.0 - TOBACCO USE Status: Chronic (4) Acute respiratory failure with hypoxia Code(s): J96.01 - ACUTE RESPIRATORY FAILURE WITH HYPOXIA Status: Resolved - Plan * Acute respiratory failure- due to CHF exacerbation- continue Entresto, and Carvediolol * He is better compensated * Cardiac cath results noted * Cough - improved * Lower extremity discomfort- lower extremity dopplers suggest significant peripheral vascular disease- will get CTA with run-offs, and Consult CV Surgery * HTN- blood pressure is stable- continue Carvediolol
[2020-08-22 16:28] LABS: Anion Gap 13 mmol/L (10-20); BUN (Urea Nitrogen) 16 mg/dL (8.4-25.7); Calc. Creatinine Clearance 118 mL/min (70-130); Calcium 8.6 mg/dL (7.8-10.44); Carbon Dioxide 26 mmol/L (22-29); Chloride 104 mmol/L (98-107); Estimated GFR-MDRD Greater than 90; Glucose 101 mg/dL (70-105); Sodium 139 mmol/L (136-145)
[2020-08-23] MEDS: Guaifenesin DM 100-10/5 ML UDCUP PO SCH ×3 (04:34→17:45)
--- NOTE | 2020-08-23 08:53 | CT ---
CTA ABDOMEN AND PELVIS WITH BILATERAL LOWER EXTREMITY RUNOFF: INDICATIONS: Lower extremity peripheral vascular disease TECHNIQUE: Multiple CTA images were obtained of the abdomen and pelvis with bilateral lower extremity runoff uti lizing IV contrast and 3D reformatted imaging. Axial, coronal and sagittal reformatted images were constructed from the raw data. COMPARISON: Bilateral lower extremity arterial Doppler evaluation dated August 21, 2020 FINDINGS: ABDOMEN: Lung bases: Clear Liver: Cirrhotic morphology to the liver Gallbladder: Cholelithiasis Pancreas: Normal. Adrenal glands: Bilateral adrenal nodularity Spleen: Measures 12 cm Kidneys and ureters: Small subcentimeter cysts involving the right kidney. Left kidney is normal-appe aring. Lymph nodes:No lymphadenopathy. Free fluid in abdomen:No free fluid is evident. PELVIS: Small and large bowel: Moderate amount of retained stool within the colon. Small bowel is of normal c aliber. Appendix:Not definitely seen. Bladder: Normal. Rectal and perirectal soft tissues:Normal. Reproductive structures: Prostate enlargement measuring 5.2 cm. Free fluid in pelvis: No free fluid is evident. Lymphadenopathy pelvis: No lymphadenopathy is evident. Osseous structures: No acute osseous abnormality. No destructive osteolytic or osteoblastic lesion i s identified. There is scattered degenerative and osteoarthritic changes. Soft tissues:There is an umbilical hernia containing unobstructed loops of small bowel and fat. VASCULATURE: Aorta: There is moderate to severe atherosclerotic irregularity involving the abdominal aorta without evidence of aneurysmal dilatation, dissection or occlusion. Celiac:Normal in caliber without evidence of stenosis or occlusion. SMA:Normal in caliber without evidence of stenosis or occlusion. Renal arteries:Normal in caliber without evidence of stenosis or occlusion. ANJU:Normal in caliber without evidence of stenosis or occlusion. Right common iliac artery: Normal in caliber without evidence of stenosis or occlusion. Right external iliac artery: Completely occluded. Reconstitution of flow: The right common femoral ar patrice. Right internal iliac artery: Moderate atherosclerotic irregularity without definite occlusion. Left common iliac artery: Normal in caliber without evidence of stenosis or occlusion. Left external iliac artery: Completely occluded with reconstitution of the level of common femoral ar patrice.. Left internal iliac artery: Normal in caliber without evidence of stenosis or occlusion. Right common femoral artery: Moderate 50% luminal caliber narrowing due to calcified atherosclerotic plaque. Right deep femoral artery: Normal in caliber without evidence of stenosis or occlusion. Right superficial femoral artery: There is 50% luminal caliber narrowing involving the distal right superficial femoral artery. There is an area of focal near complete narrowing involving the distal right superficial femoral artery on image 223 series 2. There is complete occlusion of the right supe rficial femoral artery at the level of the adductor hiatus reconstitution in the proximal right popliteal artery. Right popliteal artery: There is complete occlusion within the proximal right popliteal artery with reconstitution along its mid and inferior segments. Right posterior tibial artery: Moderate atherosclerotic irregularity, patent to the level ankle. Right anterior tibial artery: Completely occluded along its origin and proximal segment with reconst itution level of the proximal foreleg with runoff to the level of the ankle. Right peroneal artery: Severe atherosclerotic irregularity involving the proximal stomach segments w ith minimal runoff to the level the ankle. Left common femoral artery: Mild atherosclerotic irregularity but patent. Left deep femoral artery: Normal in caliber without evidence of stenosis or occlusion. Left superficial femoral artery: Moderate atherosclerotic irregularity with multifocal moderate to s evere narrowing involving the distal left superficial femoral artery. There is complete occlusion at the level of the distal left superficial femoral artery at the level of the adductor hiatus. There is reconstitution of flow within the proximal left popliteal artery. Left popliteal artery: There is moderate 50% luminal caliber narrowing involving the proximal to mid left popliteal artery. Left posterior tibial artery: Normal in caliber without evidence of stenosis or occlusion. Left anterior tibial artery: High-grade stenosis involving origin and proximal segment of the left a nterior tibial artery with runoff to the level left ankle. Left peroneal artery: Moderate to severe atherosclerotic irregularity involving the proximal mid asp ect of the peroneal artery runoff to the level of the left ankle. Additional findings: None. IMPRESSION: 1. Complete occlusion of both common iliac arteries with reconstitution of the common femoral arterie s bilaterally. 2. Complete occlusion of the distal right superficial femoral artery and proximal right popliteal art baltazar with reconstitution at the level of the mid to distal right popliteal artery. Completely occluded origin and proximal segment of the right anterior tibial artery with reconstitution of proxi mal foreleg and runoff to the level the right ankle. 3. Complete occlusion of the distal left superficial femoral artery with reconstitution at the level of the left popliteal artery. 50% luminal caliber narrowing of the mid proximal to mid left popliteal artery. High-grade stenosis involving the origin and proximal segment of the left anterior tibial artery. Moderate to severe atherosclerotic irregularity involving the proximal mid right peroneal artery. 4. Cirrhotic morphology of the liver. 5. Cholelithiasis. 6. Umbilical hernia containing unobstructed loops of small bowel and fat. 7. Bilateral adrenal nodularity, incompletely characterized. Nonemergent follow-up CT the abdomen uti lizing an adrenal mass protocol is recommended.
[2020-08-23] MEDS ORDERED: Sacubitril 49 MG/Valsartan 51 MG TABLET PO SCH (09:00)
--- NOTE | 2020-08-23 09:48 | CON ---
DATE OF CONSULTATION: REASON FOR CONSULTATION: Evaluate the patient with peripheral vascular disease. HISTORY OF PRESENT ILLNESS: Mr. Kaushik Campos is a 59-year-old gentleman who is in the hospital with exacerbation of congestive heart failure. The patient states that for years he has had buttock, hip, and thigh claudication. He has no rest pain. He has never had tissue loss. He underwent evaluation for his congestive heart failure this admission with an echocardiogram showing ejection fraction of approximately 10%. Yesterday, he underwent cardiac catheterization via a right radial approach. Ventriculogram confirms severely depressed ventricular function. He had no significant coronary artery disease. At that time, a limited aortogram was performed, which showed swirling contrast in his aorta and iliac vessels. PAST MEDICAL HISTORY: 1. Congestive heart failure with ejection fraction of 10%. 2. Hypertension. 3. COPD. PAST SURGICAL HISTORY: None. SOCIAL HISTORY: He does have a tobacco and drug use history. Does not use alcohol. ALLERGIES: NONE. CURRENT MEDICATIONS: 1. Aspirin 81 mg daily. 2. Lipitor 40 mg daily. 3. Coreg 12.5 mg b.i.d. 4. Aldactone 25 mg q.a.m. 5. Entresto two tablets b.i.d. 6. Combivent. PHYSICAL EXAMINATION: GENERAL: This is a well-developed, well-nourished man, resting comfortably without complaint. VITAL SIGNS: His height is 5 feet 9 inches, weight is 204 pounds, temperature is 98.2, pulse is 64 and regular, and blood pressure is 114/65. LUNGS: Distant breath sounds bilaterally. HEART: Rhythm is regular. ABDOMEN: Soft and nontender. VASCULAR: He has palpable radial pulses bilaterally. I cannot palpate a femoral, dorsalis pedis, or posterior tibial pulses. DIAGNOSTIC STUDIES: CT angiogram has been performed, which shows patent aorta and common iliac arteries bilaterally. There is calcification within the scott of the artery. At the iliac bifurcation bilaterally, the internal iliac arteries were patent. The external iliac arteries are occluded and heavily calcified all the way to the common femoral artery where they reconstitute via collaterals with the runoff. ASSESSMENT AND PLAN: I have discussed his situation. He is not a candidate for open revascularization with an ejection fraction of 10%. There is really no indication without threatened limb loss for extra-anatomic bypass. Interventional treatment of this in my opinion is not possible due to the chronicity and heavy calcification of his iliac arteries. He states that he already feels better after being treated for his congestive heart failure, and my hope is that with further treatment and improved ejection fraction he may have a better inflow to his rich collateral network. Job ID: [id number]
[2020-08-23] MEDS: Morphine 4 MG/ML VIAL SLOW IVP PRN (09:57)
[2020-08-23] MEDS: Carvedilol 6.25 MG TAB PO SCH ×2 (10:02→17:44)
[2020-08-23] MEDS: Aspirin Chewable 81 MG TAB PO SCH (10:02)
[2020-08-23] MEDS: Spironolactone 25 MG TAB PO SCH (10:04)
[2020-08-23] MEDS: Atorvastatin Calcium 40 MG TAB PO SCH (10:04)
[2020-08-23] MEDS: Ipratropium/Albuterol Sulfate 4 GM AER IH SCH ×3 (10:06→14:03)
[2020-08-23] MEDS ORDERED: Iopamidol-370 76% 500 ML 1 ML ONE (11:00)
--- NOTE | 2020-08-23 15:16 | PDOC.HOSPP ---
- Subjective Encounter Date: 08/23/20 Encounter Time: 15:13 Subjective: Mr. Campos was seen today in follow-up of new onset CHF and severe PVD. He is feeling better today. - Objective Vital Signs & Weight: Vital Signs (12 hours) Temp Pulse Resp BP BP Pulse Ox 08/23/20 12:16 98.0 F 74 18 117/78 97 08/23/20 10:02 137/80 08/23/20 07:06 98.2 F 64 20 114/65 96 08/23/20 04:51 98.1 F 75 16 133/82 99 08/23/20 03:16 98 Weight Weight 204 lb 9.6 oz I&O: 08/22/20 08/23/20 08/24/20 06:59 06:59 06:59 Intake Total 1980 440 360 Output Total 4639 1800 875 [facility] -[phone] -[phone] -515 Result Diagrams: 08/18/20 05:16 08/22/20 15:57 Hospitalist ROS - Medication Medications: Active Medications Generic Name Dose Route Start Last Admin Trade Name Freq PRN Reason Stop Dose Admin Albuterol/Ipratropium 0 gm 08/17/20 15:00 08/23/20 14:03 Ipratropium/Albuterol Sulfate 4 Gm Aer IH 1 inh [id number] LUCERO Administration Aspirin 81 mg 08/17/20 09:00 08/23/20 10:02 Aspirin Chewable 81 Mg Tab PO 81 mg DAILY LUCERO Administration Atorvastatin Calcium 40 mg 08/17/20 09:00 08/23/20 10:04 Atorvastatin Calcium 40 Mg Tab PO 40 mg DAILY LUCERO Administration Carvedilol 12.5 mg 08/22/20 17:00 08/23/20 10:02 Carvedilol 6.25 Mg Tab PO 12.5 mg BID-WM LUCERO Administration Guaifenesin/Dextromethorphan 15 ml 08/20/20 12:00 08/23/20 12:07 Guaifenesin Dm 100-10/5 Ml Udcup PO 15 ml Q6HR LUCERO Administration Morphine Sulfate 4 mg 08/17/20 12:20 08/23/20 09:57 Morphine 4 Mg/Ml Vial SLOW IVP 4 mg Q4H PRN Administration Moderate to Severe Pain (6-10) Sacubitril/Valsartan 2 tab 08/23/20 09:00 08/23/20 10:02 Sacubitril 49 Mg/Valsartan 51 Mg Tablet PO 2 tab BID LUCERO Administration Sodium Chloride 10 ml 08/21/20 21:00 08/23/20 10:05 Flush - Normal Saline 10 Ml Syringe IVF 10 ml Q12HR LUCERO Administration Spironolactone 25 mg 08/18/20 08:00 08/23/20 10:04 Spironolactone 25 Mg Tab PO 25 mg QAM-WM LUCERO Administration - Exam Eye: PERRL, anicteric sclera Heart: RRR, no murmur, no gallops, no rubs, normal peripheral pulses Respiratory: CTAB, no wheezes, no rales, no ronchi, normal chest expansion, no tachypnea, normal percussion Gastrointestinal: soft, non-tender, non-distended, normal bowel sounds, no palpable masses, no hepatomegaly Extremities: no cyanosis, no edema Hosp A/P (1) Acute exacerbation of CHF (congestive heart failure) Code(s): I50.9 - HEART FAILURE, UNSPECIFIED Status: Acute Qualifiers: Heart failure type: combined systolic and diastolic Qualified Code(s): I50.43 - Acute on chronic combined systolic (congestive) and diastolic (congestive) heart failure (2) Cardiomyopathy Code(s): I42.9 - CARDIOMYOPATHY, UNSPECIFIED Status: Chronic Qualifiers: Cardiomyopathy type: unspecified Qualified Code(s): I42.9 - Cardiomyopathy, unspecified (3) Tobacco abuse Code(s): Z72.0 - TOBACCO USE Status: Chronic (4) Acute respiratory failure with hypoxia Code(s): J96.01 - ACUTE RESPIRATORY FAILURE WITH HYPOXIA Status: Resolved - Plan * Acute respiratory failure- due to CHF exacerbation- continue Entresto, and Carvediolol * He is better compensated * Cardiac cath results noted * Cough - improved * Severe PVD- CTA results noted. CV Surgery input appreciated * Stable for discharge home after [facility] delivered.
[2020-08-23 15:53] VITALS: BP 114/72; TEMP 97.4
--- NOTE | 2020-08-23 17:36 | PDOC.DS.DS ---
Provider - Provider Date of Admission: 08/17/20 04:10 Date of Discharge: 08/23/20 Admitting Provider: Carrie Guzman MD Consultations: Cardiology, Other (Cardiovascular Surgery) Primary Care Physician: NO PCP PROVIDER Course - Hospital Course Hospital Course: Mr. Jorgensen is a 59-year-old gentleman who presented to the hospital with complaints of shortness of breath for the past few days. He also noticed worsening pain in his lower extremities. He was evaluated in the emergency room. He had a CT scan of his chest which demonstrated bilateral pulmonary infiltrates. At the time it was not clear if this was infectious or due to fluid overload. He had a Covid screen which was negative. It was later determined that this was related to heart failure. He had an echocardiogram performed which showed he had an ejection fraction of 10 to 15% along with diastolic dysfunction and moderate mitral regurgitation. Cardiology was consulted. Due to the significantly low ejection fraction it was felt that he should have an evaluation of his coronary arteries. He had a cardiac catheterization performed which showed only mild coronary artery disease but significantly low ejection fraction. Also the patient was complaining of severe leg pain which she had had for years but had been getting progressively worse. It was noted on physical exam that he had absent pulses in the dorsalis pedis on the left and very diminished pulses on the right. An arterial ultrasound of his lower extremities was obtained. It was found that he had significant peripheral vascular disease and proximal stenosis bilaterally based on ultrasound findings. For this reason a CTA with runoffs of the lower extremities was performed. This test determined that he had significant and complete occlusion of both common iliac arteries with collaterals that reconstituted in the common femoral area. He also had complete occlusion of the distal right superficial artery and complete occlusion of the left superficial artery he also had high-grade stenosis of the left anterior tibial and the right peroneal artery. Vascular surgery was consulted. It was felt that he would not be a good surgical candidate for a open revascularization procedure due to his low ejection fraction of 10%. And he did have significant collaterals formed. For this reason it was felt that he would continue to be treated medically. He was counseled significantly on the need to stop smoking. Chantix was prescribed to aid in this process. He was also counseled on the need to be compliant with medications. He was also fitted for a LifeVest prior to discharge. 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 Pertinent Studies: CTA of the chest Echocardiogram Cardiac Catherization Arterial dopplers of the lower extremities CTA of the lower extremities with run-offs - Labs Lab Results: 08/18/20 05:16 08/22/20 15:57 Microbiology - Entire Visit 08/17/20 02:45 Venous blood - Left Arm Blood Culture - Final NO GROWTH IN 5 DAYS 08/17/20 02:37 Venous blood - Right Hand Blood Culture - Final NO GROWTH IN 5 DAYS - Physical Exam Vitals: Vital Signs (12 hours) Temp Pulse Resp BP BP Pulse Ox 08/23/20 15:48 97.4 F L 70 18 114/72 99 08/23/20 12:16 98.0 F 74 18 117/78 97 08/23/20 10:02 137/80 08/23/20 07:06 98.2 F 64 20 114/65 96 Weight Weight 204 lb 9.6 oz Physical Exam: The patient was seen and examined on the day of discharge. Problem - Problem (1) Acute exacerbation of CHF (congestive heart failure) Code(s): I50.9 - HEART FAILURE, UNSPECIFIED Status: Acute Qualifiers: Heart failure type: combined systolic and diastolic Qualified Code(s): I50.43 - Acute on chronic combined systolic (congestive) and diastolic (congestive) heart failure (2) Cardiomyopathy Code(s): I42.9 - CARDIOMYOPATHY, UNSPECIFIED Status: Chronic Qualifiers: Cardiomyopathy type: unspecified Qualified Code(s): I42.9 - Cardiomyopathy, unspecified (3) Tobacco abuse Code(s): Z72.0 - TOBACCO USE Status: Chronic (4) Acute respiratory failure with hypoxia Code(s): J96.01 - ACUTE RESPIRATORY FAILURE WITH HYPOXIA Status: Resolved (5) Peripheral vascular disease of lower extremity Code(s): I73.9 - PERIPHERAL VASCULAR DISEASE, UNSPECIFIED Status: Chronic Plan - Discharge Medications Prescriptions: Acetaminophen W/ Codeine [Acetaminophen/Codeine #3] 1 tab PO Q4H PRN #30 tab PRN Reason: Mild Pain (1-3) Spironolactone [Aldactone] 25 mg PO QAM-WM #30 tab Varenicline Tartrate [Chantix] 0.5 mg PO BID #60 tab Carvedilol [Coreg] 12.5 mg PO BID-WM #60 tab Sacubitril/Valsartan 49/51 [Entresto 49 mg-51 mg Tablet] 2 tab PO BID #60 tab Home Medications: Medication Instructions Recorded Confirmed Type Aspirin Chewable [Aspirin Chewable 81 mg PO DAILY 08/17/20 08/17/20 History Tablet] Atorvastatin Calcium [Lipitor] 40 mg PO DAILY 08/17/20 08/17/20 History Acetaminophen W/ Codeine 1 tab PO Q4H PRN #30 tab 08/23/20 Rx [Acetaminophen/Codeine #3] Carvedilol [Coreg] 12.5 mg PO BID-WM #60 tab 08/23/20 Rx Sacubitril/Valsartan 49/51 2 tab PO BID #60 tab 08/23/20 Rx [Entresto 49 mg-51 mg Tablet] Spironolactone [Aldactone] 25 mg PO QAM-WM #30 tab 08/23/20 Rx Varenicline Tartrate [Chantix] 0.5 mg PO BID #60 tab 08/23/20 Rx Allergies: No Known Drug Allergies Allergy (Verified 08/17/20 13:41) PER ER ORDERS - Discharge Instructions Activity:: Activity as Tolerated Nourishment:: Heart Healthy Diet (`) - Follow up Plan Referrals: Cardiac Rehab - [place] [Outside] - 7 Days (Your doctor has ordered outpatient cardiac rehab for you to begin within 1-2 weeks after you go home from the hospital. The location nearest to you is the [facility]. The front office in [place] will call you in 3-5 days to get you scheduled for your evaluation. If you do not receive a call, please reach out to them at [phone] and request an appointment. ) Jess Haywood NP [[facility]] - 08/28/20 1:00 pm (Please remember to bring all medication bottles to clinic and all hospital discharge paperwork. ) Disposition: HOME Quality - Care Measures CORE MEASURES:: HF - Stroke/TIA Did you prescribe antithrombotic therapy?: No Specify reason for no DC antithrombotic therapy: Treatment not indicated Did you prescribe anticoagulant for A Fib/Flutter?: No Specify reason for no DC anticoagulant: Treatment not indicated (Not in AFIB) Did you prescribe a statin medication?: Yes
--- NOTE | 2020-08-25 08:38 | EKG ---
Test Reason : Blood Pressure : / mmHG Vent. Rate : 061 BPM Atrial Rate : 061 BPM P-R Int : 212 ms QRS Dur : 160 ms QT Int : 502 ms P-R-T Axes : 035 012 212 degrees QTc Int : 505 ms Sinus rhythm with 1st degree A-V block Possible Left atrial enlargement Left bundle branch block Abnormal ECG When compared with ECG of 17-AUG-2020 02:17, ND interval has increased Vent. rate has decreased BY 37 BPM Confirmed by TERESO FLORES MD ([id number]) on 08/25/2020 8:37:42 AM Referred By: DEMETRIO Confirmed By:TERESO FLORES MD
== END 2020-08-23 19:00 | disposition home or self-care (01) | DRG 286 ==
LOC: ERS 02:11 → ERHOLD 04:10 → 2SW 13:10
PROVIDERS: ADMIT Internal Medicine; ATTEND Internal Medicine
PROC: 4A023N7 Measurement of Cardiac Sampling and Pressure, Left Heart, Percutaneous Approach (ICD-10-PCS; principal; 2020-08-17)
PROC: B2111ZZ Fluoroscopy of Multiple Coronary Arteries using Low Osmolar Contrast (ICD-10-PCS; 2020-08-17)
PROC: B2151ZZ Fluoroscopy of Left Heart using Low Osmolar Contrast (ICD-10-PCS; 2020-08-17)
DX: I11.0 Hypertensive heart disease with heart failure (principal); J96.01 Acute respiratory failure with hypoxia; J44.1 Chronic obstructive pulmonary disease with (acute) exacerbation; Z20.828 Contact with and (suspected) exposure to other viral communicable diseases; I50.43 Acute on chronic combined systolic (congestive) and diastolic (congestive) heart failure; I42.9 Cardiomyopathy, unspecified; I44.7 Left bundle-branch block, unspecified; E78.5 Hyperlipidemia, unspecified; F17.210 Nicotine dependence, cigarettes, uncomplicated; Z79.899 Other long term (current) drug therapy; Z91.14 Patient's other noncompliance with medication regimen
CPT/HCPCS: 36415; 71045; 71275; 75630; 75635; 80048; 80053; 80061; 80306; 82553; 82728; 82805; 83605; 83615; 83735; 83880; 84132; 84484; 85025; 85379; 86140; 86769; 87040; 93005; 93010; 93306; 93458; 93798; 93923; 94760; 96365; 96366; 96367; 96372; 96375; 99152; 99153; J0456; J0696; J1644; J1650; J1940; J2250; J2270; J3010; J3475; J7512; J7620; Q9967; U0002

== ENCOUNTER 2020-09-07 04:18 | Observation (INO) | payer OTHER, SELFPAY ==
[2020-09-07] MEDS ORDERED: Furosemide 100 MG/10 ML VIAL ONE (05:03)
[2020-09-07] MEDS ORDERED: Aspirin Chewable 81 MG TAB ONE (05:03)
[2020-09-07 05:10] LABS: #Eosinphils 0.1 thou/uL (0.0-0.7); #Lymphocytes 1.3 thou/uL (1.20-3.40); #Monocytes 0.6 thou/uL (0.11-0.59); %Basophils 0.4 % (0.0-1.0); %Eosinophils 2.5 % (0.0-10.0); %Monocytes 12.7 % (0.0-10.0); %Neutrophils 59.4 % (42.0-75.0); Hemoglobin 13.9 g/dL (14.0-18.0); Mean Corpuscular HGB CONC 33.4 g/dL (32.0-36.0); Mean Corpuscular Hemoglobin 31.5 pg (27.0-31.0); Mean Corpuscular Volume 94.3 fL (78.0-98.0); Mean Platelet Volume 7.1 fL (7.4-10.4); Platelet Count 268 thou/uL (130-400); RBC Distribution Width 12.4 % (11.5-14.5); White Blood Cell (WBC) Count 5.1 thou/uL (4.8-10.8)
[2020-09-07] MEDS ORDERED: Orphenadrine Citrate 60 MG/2 ML VIAL IM SCH (05:15)
[2020-09-07 06:02] LABS: ALT (SGPT) 31 U/L (8-55); AST (SGOT) 28 U/L (5-34); Albumin 3.6 g/dL (3.5-5.0); Alkaline Phosphatase 57 U/L (40-110); Anion Gap 14 mmol/L (10-20); BUN (Urea Nitrogen) 10 mg/dL (8.4-25.7); Bilirubin, Total 1.1 mg/dL (0.2-1.2); Calc. Creatinine Clearance 0 mL/min (70-130); Calcium 8.8 mg/dL (7.8-10.44); Carbon Dioxide 22 mmol/L (22-29); Chloride 108 mmol/L (98-107); Estimated GFR-MDRD Greater than 90; Globulin 3.8 g/dL (2.4-3.5); Glucose 97 mg/dL (70-105); Potassium 3.7 mmol/L (3.5-5.1); Protein, Total 7.4 g/dL (6.0-8.3); Sodium 140 mmol/L (136-145)
--- NOTE | 2020-09-07 08:38 | RAD ---
SINGLE VIEW OF THE CHEST: COMPARISON: 08/17/2020. CTA chest 08/17/2020. HISTORY: Difficulty breathing. Decreased ejection fraction. FINDINGS: A single view of the chest shows an enlarged cardiomediastinal silhouette. There are scattered mixed multifocal opacities in the lungs which have not significantly changed compared to the prior examina tion. Bilateral pulmonary vascular enlargement seen. No pleural effusion is seen. IMPRESSION: Scattered multifocal infiltrates versus pulmonary edema. POS: EAA
[2020-09-07 08:55] VITALS: BMI 29.5
[2020-09-07 09:10] LABS: Troponin I 0.016 ng/mL (< 0.028)
[2020-09-07] MEDS ORDERED: Cyclobenzaprine 10 MG TAB PO PRN (09:14)
[2020-09-07] MEDS ORDERED: Acetaminophen/Codeine 30-300mg Tablet PO PRN (09:18)
[2020-09-07] MEDS ORDERED: Calcium Carbonate 500 MG ChewTAB PO PRN (09:20)
[2020-09-07] MEDS ORDERED: Acetaminophen 325 MG TAB PO PRN (09:20)
[2020-09-07] MEDS ORDERED: Spironolactone 25 MG TAB PO SCH (09:30)
[2020-09-07] MEDS ORDERED: Sacubitril 49 MG/Valsartan 51 MG TABLET PO SCH (09:30)
[2020-09-07] MEDS ORDERED: Aspirin 325 MG TAB PO SCH (09:30)
[2020-09-07] MEDS ORDERED: Carvedilol 6.25 MG TAB PO SCH (09:30)
[2020-09-07] MEDS ORDERED: Aspirin Chewable 81 MG TAB PO SCH (09:30)
[2020-09-07] MEDS: Acetaminophen/Codeine 30-300mg Tablet PO PRN ×3 (09:40→20:53)
[2020-09-07 11:35] LABS: Magnesium 1.8 mg/dL (1.6-2.6); Phosphorus 3.8 mg/dL (2.3-4.7)
--- NOTE | 2020-09-07 11:44 | PDOC.HHP ---
Hospitalist HPI - History of Present Illness Shortness of breath History of Present Illness: Patient is a 59-year-old -[place] male with recently diagnosed with congestive heart failure with ejection fraction 10 to 15% presented to the emergency room with shortness of breath that is progressively getting worse over the last few days. Shortness of breath was worse on minimal exertion and lying down. Also had cough with minimal production. He denies any chest pain, palpitations or syncope. Patient has gained approximately 8 pounds in the last 3 days. He is compliant with medications including Entresto and carvedilol. He denies any fever, palpitations, syncope or sick contacts. PAST MEDICAL HISTORY: Chronic systolic heart failure ejection fraction 10 to 15% (echo on 08/17/2020), coronary artery disease, peripheral vascular disease, tobacco dependence, COPD, hypertension, chronic low back pain PAST SURGICAL HISTORY: Cardiac catheterization SOCIAL HISTORY: Smokes up to half pack a day. Former drug abuser. Drinks alcohol socially FAMILY HISTORY: Family history of heart disease Hospitalist ROS - Review of Systems Gastrointestinal: denies: nausea, vomiting, abdominal pain, diarrhea, constipation, melena, hematochezia, other Genitourinary: denies: dysuria, frequency, incontinence, hematuria, retention, other All other systems reviewed; all pertinent +/- noted in HPI/Subj - Medication Medications: Allergies No Known Drug Allergies Allergy (Verified 08/17/20 13:41) PER ER ORDERS Medication Instructions Recorded Confirmed Type Aspirin Chewable [Aspirin Chewable 81 mg PO DAILY 08/17/20 09/07/20 History Tablet] Atorvastatin Calcium [Lipitor] 40 mg PO DAILY 08/17/20 09/07/20 History Acetaminophen W/ Codeine 1 tab PO Q4H PRN #30 tab 08/23/20 09/07/20 Rx [Acetaminophen/Codeine #3] Carvedilol [Coreg] 12.5 mg PO BID-WM #60 tab 08/23/20 09/07/20 Rx Sacubitril/Valsartan 49/51 2 tab PO BID #60 tab 08/23/20 09/07/20 Rx [Entresto 49 mg-51 mg Tablet] Spironolactone [Aldactone] 25 mg PO QAM-WM #30 tab 08/23/20 09/07/20 Rx Varenicline Tartrate [Chantix] 0.5 mg PO BID #60 tab 08/23/20 09/07/20 Rx Ipratropium [place] [Atrovent] 2.5 ml NEB TID 09/07/20 09/07/20 History - Exam General Appearance: ill appearing General - other findings: In mild respiratory distress Eye: PERRL, anicteric sclera ENT: normocephalic atraumatic, no oropharyngeal lesions Neck: supple, JVD Heart: RRR, no gallops, no rubs, normal peripheral pulses Respiratory: rales, rhonchi, tachypneic Respiratory - other findings: Accessory muscle use Gastrointestinal: soft, normal bowel sounds, no guarding, no rigidity Extremities: no cyanosis, no clubbing, 2+ LE edema (Bilateral lower extremity) Skin: normal turgor, no lesions, no rashes Neurological: normal sensation to touch, no weakness, no focal deficits Musculoskeletal: normal tone, no muscle wasting Psychiatric: normal affect, A&O x 3 Hospitalist Results - Labs Result Diagrams: 09/07/20 05:02 09/07/20 05:02 Lab results: WBC 5.1 thou/uL (4.8-10.8) 09/07/20 05:02 Hgb 13.9 g/dL (14.0-18.0) L 09/07/20 05:02 Hct 41.5 % (42.0-52.0) L 09/07/20 05:02 MCV 94.3 fL (78.0-98.0) 09/07/20 05:02 Plt Count 268 thou/uL (130-400) 09/07/20 05:02 Neutrophils % 59.4 % (42.0-75.0) 09/07/20 05:02 Sodium 140 mmol/L (136-145) 09/07/20 05:02 Potassium 3.7 mmol/L (3.5-5.1) 09/07/20 05:02 Chloride 108 mmol/L (98-107) H 09/07/20 05:02 Carbon Dioxide 22 mmol/L (22-29) 09/07/20 05:02 BUN 10 mg/dL (8.4-25.7) 09/07/20 05:02 Creatinine 0.91 mg/dL (0.7-1.3) 09/07/20 05:02 Glucose 97 mg/dL (70-105) 09/07/20 05:02 Calcium 8.8 mg/dL (7.8-10.44) 09/07/20 05:02 Total Bilirubin 1.1 mg/dL (0.2-1.2) 09/07/20 05:02 AST 28 U/L (5-34) 09/07/20 05:02 ALT 31 U/L (8-55) 09/07/20 05:02 Alkaline Phosphatase 57 U/L (40-110) 09/07/20 05:02 Troponin I 0.016 ng/mL (< 0.028) 09/07/20 08:37 B-Natriuretic Peptide 1913.8 pg/mL (0-100) H 09/07/20 05:02 Serum Total Protein 7.4 g/dL (6.0-8.3) 09/07/20 05:02 Albumin 3.6 g/dL (3.5-5.0) 09/07/20 05:02 - EKG Interpretation EKG: Sinus rhythm with left bundle branch blockreviewed by me - Radiology Interpretation Chest x-ray Status: image reviewed by me Additional Comment: Pulmonary vascular congestion Hospitalist H&P A/P - Plan Plan: Acute hypoxic respiratory failure due to acute on chronic systolic heart failure exacerbation Coronary artery disease Peripheral vascular disease Hypertension COPD Left bundle branch block Chronic low back pain Hypomagnesemia Chronic anemia suspected due to nutritional deficiency Tobacco dependence Plan: Restart aspirin. IV Lasix 40 mg twice daily. Restart carvedilol and Entresto. Resume spironolactone. Add fluid restriction. DVT prophylaxis with Lovenox. SCDs contraindicated due to peripheral vascular disease. Restart Lipitor. P atient was extensively counseled on congestive heart failure and importance of fluid restriction. Tobacco cessation was emphasized. Patient currently has LifeVest that was arranged last admission.
[2020-09-07] MEDS ORDERED: Magnesium 2 GM/50 ML 2 GM in Premix Bag 1 BAG IVPB SCH (12:00)
[2020-09-07] MEDS: Ipratropium Bromide 2.5 ml Neb NEB SCH ×2 (13:35→18:25)
[2020-09-07] MEDS: Furosemide 40 MG/4 ML VIAL SLOW IVP SCH (15:25)
[2020-09-07] MEDS: Carvedilol 6.25 MG TAB PO SCH (15:31)
[2020-09-07 16:10] LABS: SARS-CoV-2 MS2 Positive; SARS-CoV-2 N Gene Negative; SARS-CoV-2 S Gene Negative; SARS-CoV-2 by NAA Not Detected (NotDetected); SARS-CoV-2 orf1ab Negative
[2020-09-07] MEDS: Famotidine 20 MG TAB PO SCH (20:53)
[2020-09-07] MEDS: Sacubitril 49 MG/Valsartan 51 MG TABLET PO SCH (21:21)
[2020-09-07] MEDS ORDERED: Morphine 2 MG/ML VIAL SLOW IVP PRN (23:37)
[2020-09-08 05:19] LABS: #Basophils 0.1 thou/uL (0.0-0.2); #Eosinphils 0.3 thou/uL (0.0-0.7); #Lymphocytes 1.5 thou/uL (1.20-3.40); #Monocytes 0.6 thou/uL (0.11-0.59); #Neutrophils 1.6 thou/uL (1.40-6.50); %Basophils 2.3 % (0.0-1.0); %Eosinophils 6.7 % (0.0-10.0); %Lymphocytes 36.7 % (21.0-51.0); %Monocytes 14.1 % (0.0-10.0); %Neutrophils 40.2 % (42.0-75.0); Hemoglobin 14.5 g/dL (14.0-18.0); Mean Corpuscular HGB CONC 33.2 g/dL (32.0-36.0); Mean Corpuscular Hemoglobin 31.2 pg (27.0-31.0); Mean Platelet Volume 7.3 fL (7.4-10.4); Platelet Count 272 thou/uL (130-400); RBC Distribution Width 12.4 % (11.5-14.5); Red Blood Cell (RBC) Count 4.64 mill/uL (4.70-6.10); White Blood Cell (WBC) Count 3.9 thou/uL (4.8-10.8)
[2020-09-08] MEDS: Furosemide 40 MG/4 ML VIAL SLOW IVP SCH ×2 (05:20→13:21)
[2020-09-08 05:39] LABS: Anion Gap 13 mmol/L (10-20); BUN (Urea Nitrogen) 18 mg/dL (8.4-25.7); Calc. Creatinine Clearance 91 mL/min (70-130); Calcium 8.4 mg/dL (7.8-10.44); Carbon Dioxide 27 mmol/L (22-29); Chloride 104 mmol/L (98-107); Estimated GFR-MDRD 79; Glucose 101 mg/dL (70-105); Magnesium 1.9 mg/dL (1.6-2.6); Potassium 3.7 mmol/L (3.5-5.1); Sodium 140 mmol/L (136-145)
[2020-09-08] MEDS ORDERED: Spironolactone 25 MG TAB PO SCH (08:00)
[2020-09-08] MEDS ORDERED: Magnesium 2 GM/50 ML 2 GM in Premix Bag 1 BAG IVPB SCH (08:00)
[2020-09-08] MEDS ORDERED: Potassium Chloride 20 MEQ TAB PO SCH (08:00)
[2020-09-08] MEDS: Ipratropium Bromide 2.5 ml Neb NEB SCH ×2 (08:54→14:02)
[2020-09-08] MEDS ORDERED: Enoxaparin Sodium 40 MG/0.4 ML SYRINGE SC SCH (09:00)
[2020-09-08] MEDS ORDERED: Aspirin Chewable 81 MG TAB PO SCH (09:00)
[2020-09-08] MEDS ORDERED: Aspirin 325 mg Enteric Coated Tablet PO SCH (09:00)
[2020-09-08] MEDS: Carvedilol 6.25 MG TAB PO SCH (09:06)
[2020-09-08] MEDS: Famotidine 20 MG TAB PO SCH (09:07)
[2020-09-08] MEDS: Sacubitril 49 MG/Valsartan 51 MG TABLET PO SCH (09:07)
[2020-09-08] MEDS: Acetaminophen/Codeine 30-300mg Tablet PO PRN (09:08)
--- NOTE | 2020-09-08 10:54 | PDOC.DS.DS ---
Provider - Provider Date of Admission: 09/07/20 06:28 Date of Discharge: 09/08/20 Admitting Provider: Nito Gray Consultations: None Primary Care Physician: [facility] Course - Hospital Course Hospital Course: Patient is a 59-year-old male with recently diagnosed systolic heart failure with ejection fraction 10 to 15% presented to the hospital with shortness of breath along with 8 pound weight gain over the last 3 days. His work-up was consistent with acute on chronic systolic heart failure exacerbation. He was started on IV Lasix 40 mg twice daily with good improvement in his symptoms. He is currently on room air. He has lost 5 pounds since admission. He will be discharged after his afternoon dose of Lasix. He was extensively counseled on congestive heart failure and to monitor weight on the daily basis. He was also advised to continue spironolactone along with Entresto. A prescription for Lasix was also provided for edema/weight gain. He understands the above plan of care. He was advised to follow-up with heart failure clinic as a new patient. Final diagnosis: Acute hypoxic respiratory failure due to acute on chronic systolic heart failure exacerbation Coronary artery disease Peripheral vascular disease Hypertension COPD Left bundle branch block Chronic low back painpatient is out of Tylenol 3. A prescription for 14 tablets has been sent. He was advised to follow-up with primary care physician or pain clinic. Hypomagnesemia Chronic anemia suspected due to nutritional deficiency Tobacco dependence Resuscitation Status: 09/07/20 09:20 Resuscitation Status Routine Resuscitation Status: FULL: Full Resuscitation - Labs Lab Results: 09/08/20 04:59 09/08/20 04:59 Abnormal Lab Results - Last 48 hrs 09/07/20 05:02: B-Natriuretic Peptide 1913.8 H 09/07/20 05:02: RBC 4.40 L, Hgb 13.9 L, Hct 41.5 L, MCH 31.5 H, MPV 7.1 L, Monocytes % 12.7 H, Monocytes # 0.6 H 09/07/20 05:02: Chloride 108 H, Globulin 3.8 H, Albumin/Globulin Ratio 0.9 L 09/08/20 04:59: WBC 3.9 L, RBC 4.64 L, MCH 31.2 H, MPV 7.3 L, Neutrophils % 40.2 L, Monocytes % 14.1 H, Basophils % 2.3 H, Monocytes # 0.6 H - Physical Exam Vitals: Vital Signs (12 hours) Temp Pulse Resp BP BP Pulse Ox 09/08/20 09:06 132/84 09/08/20 08:54 90 20 09/08/20 08:30 98.2 F 65 18 127/77 98 09/08/20 03:36 98 F 59 L 20 136/76 94 L 09/08/20 02:16 100 09/07/20 23:20 98.1 F 58 L 20 131/78 97 Weight Weight 195 lb 9.6 oz Physical Exam: The patient was seen and examined on the day of discharge. Plan - Discharge Medications Prescriptions: Acetaminophen W/ Codeine [Acetaminophen/Codeine #3] 1 tab PO Q8H PRN #14 tab PRN Reason: Severe Pain (7-10) Furosemide [Lasix] 40 mg PO BID PRN #14 tab PRN Reason: Edema/Weight gain Home Medications: Medication Instructions Recorded Confirmed Type Aspirin Chewable [Aspirin Chewable 81 mg PO DAILY 08/17/20 09/07/20 History Tablet] Atorvastatin Calcium [Lipitor] 40 mg PO DAILY 08/17/20 09/07/20 History Carvedilol [Coreg] 12.5 mg PO BID-WM #60 tab 08/23/20 09/07/20 Rx Sacubitril/Valsartan 49/51 2 tab PO BID #60 tab 08/23/20 09/07/20 Rx [Entresto 49 mg-51 mg Tablet] Spironolactone [Aldactone] 25 mg PO QAM-WM #30 tab 08/23/20 09/07/20 Rx Varenicline Tartrate [Chantix] 0.5 mg PO BID #60 tab 08/23/20 09/07/20 Rx Ipratropium [place] [Atrovent] 2.5 ml NEB TID 09/07/20 09/07/20 History Acetaminophen W/ Codeine 1 tab PO Q8H PRN #14 tab 09/08/20 Rx [Acetaminophen/Codeine #3] Furosemide [Lasix] 40 mg PO BID PRN #14 tab 09/08/20 Rx Allergies: No Known Drug Allergies Allergy (Verified 08/17/20 13:41) PER ER ORDERS - Follow up Plan Referrals: Cardiac Rehab - [place] [Outside] - 7 Days (Your doctor has ordered outpatient cardiac rehab for you to begin within 1-2 weeks after you go home from the hospital. The location nearest to you is the [facility]. We will call you in 3-5 days to get you scheduled for your evaluation. If you do not receive a call, please reach out to us at [phone] and request an appointment.) [facility] [Primary Care Provider] - Disposition: HOME Quality - Care Measures CORE MEASURES:: HF
[2020-09-08 13:08] VITALS: BP 126/79; TEMP 98.1
[2020-09-08] MEDS ORDERED: Atorvastatin Calcium 40 MG TAB PO SCH (21:00)
== END 2020-09-08 15:29 | disposition home or self-care (01) ==
LOC: ERS 04:18 → 2SE 06:28 → INTOOBSV 06:28 → ERS 08:17
PROVIDERS: ADMIT Internal Medicine; ATTEND Internal Medicine
DX: I11.0 Hypertensive heart disease with heart failure (principal); I50.23 Acute on chronic systolic (congestive) heart failure; J96.01 Acute respiratory failure with hypoxia; I25.10 Atherosclerotic heart disease of native coronary artery without angina pectoris; I73.9 Peripheral vascular disease, unspecified; J44.9 Chronic obstructive pulmonary disease, unspecified; I44.7 Left bundle-branch block, unspecified; G89.29 Other chronic pain; M54.5 Low back pain; E83.42 Hypomagnesemia; D53.9 Nutritional anemia, unspecified; F17.210 Nicotine dependence, cigarettes, uncomplicated; F14.11 Cocaine abuse, in remission; F12.11 Cannabis abuse, in remission; Z79.82 Long term (current) use of aspirin; Z79.899 Other long term (current) drug therapy; Z20.828 Contact with and (suspected) exposure to other viral communicable diseases
CPT/HCPCS: 36415; 71045; 80048; 80053; 83735; 83880; 84100; 84484; 85025; 87635; 93005; 93798; 94640; 96372; 96374; 96375; 96376; G0378; J1650; J1940; J2270; J2360; J3475; U0003

== ENCOUNTER 2020-10-23 20:18 | Emergency (ER) | payer OTHER | END 2020-10-23 20:53 | LOC: ERS 20:18 | DX: Z02.89 Encounter for other administrative examinations (principal); I11.0 Hypertensive heart disease with heart failure; I50.9 Heart failure, unspecified; J44.9 Chronic obstructive pulmonary disease, unspecified; E78.5 Hyperlipidemia, unspecified; F17.210 Nicotine dependence, cigarettes, uncomplicated; Z79.899 Other long term (current) drug therapy; Z79.51 Long term (current) use of inhaled steroids | CPT/HCPCS: 99282 ==

== ENCOUNTER 2020-12-19 14:42 | Observation (INO) | payer OTHER ==
[2020-12-19 15:10] LABS: #Basophils 0.1 thou/uL (0.0-0.2); #Eosinphils 0.1 thou/uL (0.0-0.7); #Lymphocytes 1.1 thou/uL (1.20-3.40); #Monocytes 0.8 thou/uL (0.11-0.59); %Basophils 1.2 % (0.0-1.0); %Eosinophils 1.2 % (0.0-10.0); %Lymphocytes 18.3 % (21.0-51.0); %Monocytes 12.5 % (0.0-10.0); %Neutrophils 66.7 % (42.0-75.0); Hemoglobin 15.8 g/dL (14.0-18.0); Mean Corpuscular HGB CONC 34.5 g/dL (32.0-36.0); Mean Corpuscular Hemoglobin 33.9 pg (27.0-31.0); Mean Corpuscular Volume 98.2 fL (78.0-98.0); Mean Platelet Volume 7.1 fL (7.4-10.4); Platelet Count 284 thou/uL (130-400); RBC Distribution Width 12.5 % (11.5-14.5); Red Blood Cell (RBC) Count 4.66 mill/uL (4.70-6.10)
[2020-12-19 15:33] LABS: ALT (SGPT) 30 U/L (8-55); AST (SGOT) 27 U/L (5-34); Albumin 3.8 g/dL (3.5-5.0); Alkaline Phosphatase 57 U/L (40-110); Anion Gap 13 mmol/L (10-20); BUN (Urea Nitrogen) 11 mg/dL (8.4-25.7); Bilirubin, Total 0.7 mg/dL (0.2-1.2); Calc. Creatinine Clearance 0 mL/min (70-130); Calcium 9.4 mg/dL (7.8-10.44); Carbon Dioxide 28 mmol/L (22-29); Chloride 106 mmol/L (98-107); Globulin 3.8 g/dL (2.4-3.5); Glucose 111 mg/dL (70-105); Potassium 3.7 mmol/L (3.5-5.1); Protein, Total 7.6 g/dL (6.0-8.3); Sodium 143 mmol/L (136-145)
[2020-12-19] MEDS ORDERED: Nitroglycerin 2% Ointment 1 INCH/1 GM Packet ONE (15:46)
[2020-12-19] MEDS ORDERED: Aspirin 325 MG TAB ONE (15:46)
[2020-12-19] MEDS ORDERED: Nitroglycerin 50 MG/250 ML BOT 0 ML ONE (17:28)
[2020-12-19] MEDS ORDERED: Nitroglycerin 0.4 MG TAB 1 EACH ONE (17:30)
[2020-12-19] MEDS ORDERED: Acetaminophen 325 MG TAB PO PRN (17:53)
[2020-12-19] MEDS ORDERED: Acetaminophen 650 MG Suppository PR PRN (17:53)
[2020-12-19] MEDS ORDERED: Enoxaparin Sodium 40 MG/0.4 ML SYRINGE SC SCH (18:00)
[2020-12-19] MEDS ORDERED: Ketorolac Tromethamine 30 MG/ML VIAL IVP SCH (21:30)
[2020-12-19 21:51] LABS: Troponin I 0.024 ng/mL (< 0.028)
[2020-12-19] MEDS ORDERED: Nitroglycerin 2% Ointment 1 INCH/1 GM Packet TOP SCH (22:00)
[2020-12-19 22:02] VITALS: BMI 31.5
[2020-12-19] MEDS: Lidocaine 5% Patch TD SCH (22:16)
[2020-12-19] MEDS: Famotidine 20 MG TAB PO SCH (22:17)
[2020-12-19] MEDS: Nitroglycerin 2% Ointment 1 INCH/1 GM Packet TOP SCH (22:20)
[2020-12-20] MEDS ORDERED: hydrALAZINE 20 MG/ML VIAL SLOW IVP PRN ×2 (00:09→04:44)
[2020-12-20 02:28] LABS: CKMB 3.3 ng/mL (0-6.6)
[2020-12-20 05:05] LABS: #Basophils 0.1 thou/uL (0.0-0.2); #Eosinphils 0.2 thou/uL (0.0-0.7); #Lymphocytes 1.9 thou/uL (1.20-3.40); #Monocytes 0.6 thou/uL (0.11-0.59); #Neutrophils 2.3 thou/uL (1.40-6.50); %Basophils 1.4 % (0.0-1.0); %Monocytes 12.4 % (0.0-10.0); %Neutrophils 46.2 % (42.0-75.0); Hemoglobin 15.6 g/dL (14.0-18.0); Mean Corpuscular HGB CONC 33.1 g/dL (32.0-36.0); Mean Corpuscular Hemoglobin 32.3 pg (27.0-31.0); Mean Corpuscular Volume 97.5 fL (78.0-98.0); Mean Platelet Volume 6.9 fL (7.4-10.4); Platelet Count 275 thou/uL (130-400); RBC Distribution Width 12.6 % (11.5-14.5); Red Blood Cell (RBC) Count 4.84 mill/uL (4.70-6.10); White Blood Cell (WBC) Count 5.1 thou/uL (4.8-10.8)
[2020-12-20] MEDS: Morphine 2 MG/ML VIAL SLOW IVP PRN ×3 (05:20→14:55)
[2020-12-20] MEDS: Nitroglycerin 2% Ointment 1 INCH/1 GM Packet TOP SCH (05:21)
[2020-12-20 05:29] LABS: ALT (SGPT) 28 U/L (8-55); AST (SGOT) 26 U/L (5-34); Albumin 3.7 g/dL (3.5-5.0); Alkaline Phosphatase 54 U/L (40-110); Anion Gap 12 mmol/L (10-20); BUN (Urea Nitrogen) 12 mg/dL (8.4-25.7); Calc. Creatinine Clearance 119 mL/min (70-130); Carbon Dioxide 26 mmol/L (22-29); Chloride 103 mmol/L (98-107); Globulin 3.7 g/dL (2.4-3.5); Glucose 93 mg/dL (70-105); Potassium 3.3 mmol/L (3.5-5.1); Protein, Total 7.4 g/dL (6.0-8.3); Sodium 138 mmol/L (136-145)
[2020-12-20 05:50] LABS: CKMB 3.5 ng/mL (0-6.6)
[2020-12-20 06:47] LABS: SARS-CoV-2 PCR by NAA Not Detected (NotDetected)
[2020-12-20] MEDS ORDERED: Transdermal Patch Removal TOP SCH (07:00)
[2020-12-20] MEDS: Ipratropium Oral Inhaler INH SCH ×3 (07:59→15:19)
[2020-12-20] MEDS ORDERED: Spironolactone 25 MG TAB PO SCH (08:00)
[2020-12-20] MEDS: Enoxaparin Sodium 40 MG/0.4 ML SYRINGE SC SCH ×2 (08:26→11:11)
[2020-12-20] MEDS: Famotidine 20 MG TAB PO SCH (08:26)
[2020-12-20] MEDS: Carvedilol 6.25 MG TAB PO SCH ×2 (08:27→11:11)
[2020-12-20] MEDS ORDERED: Sacubitril 49 MG/Valsartan 51 MG TABLET PO SCH (09:00)
[2020-12-20] MEDS ORDERED: Atorvastatin Calcium 40 MG TAB PO SCH (09:00)
[2020-12-20] MEDS ORDERED: Furosemide 40 MG TAB PO SCH (09:00)
[2020-12-20] MEDS ORDERED: Aspirin Chewable 81 MG TAB PO SCH ×2 (09:00)
[2020-12-20] MEDS ORDERED: hydrALAZINE 25 MG TAB PO SCH ×2 (10:30→15:00)
[2020-12-20] MEDS ORDERED: Isosorbide Dinitrate 20 MG TAB PO SCH (15:00)
[2020-12-20 15:29] VITALS: BP 111/84; TEMP 98
[2020-12-20] MEDS: Lidocaine 5% Patch TD SCH (16:23)
== END 2020-12-20 16:45 ==
LOC: ERS 14:42 → 3SE 17:21
PROVIDERS: ADMIT Internal Medicine; ATTEND Emergency Medicine
DX: R07.89 Other chest pain (principal); M25.512 Pain in left shoulder; I25.10 Atherosclerotic heart disease of native coronary artery without angina pectoris; I42.8 Other cardiomyopathies; E78.5 Hyperlipidemia, unspecified; I73.9 Peripheral vascular disease, unspecified; F17.210 Nicotine dependence, cigarettes, uncomplicated; R91.1 Solitary pulmonary nodule; I11.0 Hypertensive heart disease with heart failure; I50.9 Heart failure, unspecified; J44.9 Chronic obstructive pulmonary disease, unspecified; I44.0 Atrioventricular block, first degree; I44.7 Left bundle-branch block, unspecified; F12.11 Cannabis abuse, in remission; F14.11 Cocaine abuse, in remission; Z79.82 Long term (current) use of aspirin; Z79.899 Other long term (current) drug therapy; Z20.822 Contact with and (suspected) exposure to COVID-19
CPT/HCPCS: 36415; 71045; 71275; 80053; 82553; 83690; 83735; 83880; 84484; 85025; 85379; 87635; 93005; 93010; 94760; 96372; 96374; 96375; 96376; G0378; J1650; J1885; J2270; U0003; U0005

== ENCOUNTER 2020-12-22 01:54 | Emergency (ER) | payer OTHER ==
[2020-12-22] MEDS ORDERED: Ketorolac Tromethamine 30 MG/ML VIAL ONE (03:20)
== END 2020-12-22 03:30 ==
LOC: ERS 01:54
DX: R07.89 Other chest pain (principal); J44.9 Chronic obstructive pulmonary disease, unspecified; I11.0 Hypertensive heart disease with heart failure; I50.9 Heart failure, unspecified; E78.5 Hyperlipidemia, unspecified; F17.210 Nicotine dependence, cigarettes, uncomplicated; Z79.899 Other long term (current) drug therapy
CPT/HCPCS: 36415; 82553; 84484; 93005; 96374; J1885

== ENCOUNTER 2021-04-29 11:05 | Inpatient (IN) | payer OTHER, SELFPAY ==
[2021-04-29 15:02] VITALS: BMI 30.5
[2021-05-02 07:40] VITALS: TEMP 97.7
[2021-05-02 10:07] VITALS: BP 124/71
== END 2021-05-02 10:20 | disposition home or self-care (01) | DRG 227 ==
LOC: ERS 11:05 → 2NO 13:11
PROVIDERS: ADMIT Family Medicine; ATTEND Nurse Practitioner Family
PROC: 0JH608Z Insertion of Defibrillator Generator into Chest Subcutaneous Tissue and Fascia, Open Approach (ICD-10-PCS; principal; 2021-04-29)
PROC: 02HK0KZ Insertion of Defibrillator Lead into Right Ventricle, Open Approach (ICD-10-PCS; 2021-04-29)
PROC: 02HL0KZ Insertion of Defibrillator Lead into Left Ventricle, Open Approach (ICD-10-PCS; 2021-04-29)
PROC: 02H60KZ Insertion of Defibrillator Lead into Right Atrium, Open Approach (ICD-10-PCS; 2021-04-29)
DX: I11.0 Hypertensive heart disease with heart failure (principal); J44.1 Chronic obstructive pulmonary disease with (acute) exacerbation; I50.23 Acute on chronic systolic (congestive) heart failure; Z20.822 Contact with and (suspected) exposure to COVID-19; I42.8 Other cardiomyopathies; E78.5 Hyperlipidemia, unspecified; I73.9 Peripheral vascular disease, unspecified; F17.210 Nicotine dependence, cigarettes, uncomplicated; I25.10 Atherosclerotic heart disease of native coronary artery without angina pectoris; F12.10 Cannabis abuse, uncomplicated; G62.9 Polyneuropathy, unspecified; E87.6 Hypokalemia; R94.31 Abnormal electrocardiogram [ECG] [EKG]; M54.5 Low back pain; G89.29 Other chronic pain; I44.7 Left bundle-branch block, unspecified; Z91.14 Patient's other noncompliance with medication regimen; Z79.899 Other long term (current) drug therapy; Z79.01 Long term (current) use of anticoagulants
CPT/HCPCS: 33225; 33249; 36415; 71045; 76942; 80048; 80053; 82553; 83880; 84484; 85025; 93005; 93010; 93306; 93641; 93798; 94640; 96374; C1777; C1882; C1898; C1900; J0690; J1100; J1580; J1940; J2001; J2250; J2405; J2704; J3010; J7512; J7620; J7626; Q9967; U0003; U0005

== ENCOUNTER 2021-09-06 23:27 | Emergency (ER) | payer OTHER ==
[2021-09-06] MEDS ORDERED: Aspirin Chewable 81 MG TAB ONE (23:47)
[2021-09-06] MEDS ORDERED: Nitroglycerin 2% Ointment 1 INCH/1 GM Packet ONE (23:47)
[2021-09-06 23:53] LABS: #Basophils 0.1 thou/uL (0.0-0.2); #Eosinphils 0.2 thou/uL (0.0-0.7); #Lymphocytes 1.6 thou/uL (1.20-3.40); #Monocytes 0.7 thou/uL (0.11-0.59); #Neutrophils 3.6 thou/uL (1.40-6.50); %Basophils 0.9 % (0.0-1.0); %Eosinophils 3.1 % (0.0-10.0); %Lymphocytes 26.3 % (21.0-51.0); %Monocytes 11.5 % (0.0-10.0); %Neutrophils 58.2 % (42.0-75.0); Hemoglobin 15.7 g/dL (14.0-18.0); Mean Corpuscular HGB CONC 33.8 g/dL (32.0-36.0); Mean Corpuscular Hemoglobin 32.8 pg (27.0-31.0); Mean Corpuscular Volume 96.9 fL (78.0-98.0); Platelet Count 255 thou/uL (130-400); RBC Distribution Width 11.6 % (11.5-14.5); Red Blood Cell (RBC) Count 4.78 mill/uL (4.70-6.10); White Blood Cell (WBC) Count 6.2 thou/uL (4.8-10.8)
[2021-09-06] MEDS ORDERED: Mag-Al 1200 mg/1200 mg/30 ML UDCUP ONE (23:54)
[2021-09-06] MEDS ORDERED: Lidocaine Viscous Sol 2% 15 ml UD Cup ONE (23:54)
[2021-09-07 00:12] LABS: ALT (SGPT) 49 U/L (8-55); AST (SGOT) 30 U/L (5-34); Albumin 4.1 g/dL (3.5-5.0); Alkaline Phosphatase 61 U/L (40-110); Anion Gap 11 mmol/L (10-20); BUN (Urea Nitrogen) 15 mg/dL (8.4-25.7); Bilirubin, Total 0.6 mg/dL (0.2-1.2); Calc. Creatinine Clearance 0 mL/min (70-130); Calcium 9.6 mg/dL (7.8-10.44); Carbon Dioxide 31 mmol/L (22-29); Chloride 104 mmol/L (98-107); Globulin 3.9 g/dL (2.4-3.5); Glucose 124 mg/dL (70-105); Lipase 33 U/L (8-78); Potassium 3.4 mmol/L (3.5-5.1); Sodium 143 mmol/L (136-145)
[2021-09-07] MEDS ORDERED: Furosemide 40 MG TAB ONE (00:40)
[2021-09-07] MEDS ORDERED: hydrALAZINE 20 MG/ML VIAL ONE (00:40)
[2021-09-07] MEDS ORDERED: Carvedilol 25 MG TAB PO SCH (01:00)
[2021-09-07] MEDS ORDERED: Morphine 4 MG/ML VIAL ONE (01:27)
[2021-09-07 02:44] LABS: Troponin I 0.025 ng/mL (< 0.028)
== END 2021-09-07 03:22 | disposition home or self-care (01) ==
LOC: ERS 23:27
DX: R07.89 Other chest pain (principal); I25.10 Atherosclerotic heart disease of native coronary artery without angina pectoris; I11.0 Hypertensive heart disease with heart failure; I50.9 Heart failure, unspecified; E78.5 Hyperlipidemia, unspecified; J44.9 Chronic obstructive pulmonary disease, unspecified; F17.210 Nicotine dependence, cigarettes, uncomplicated; Z79.899 Other long term (current) drug therapy
CPT/HCPCS: 36415; 71045; 80053; 83690; 83880; 84484; 85025; 93005; 96374; 96375; J0360; J2270

== ENCOUNTER 2021-12-01 19:24 | Observation (INO) | payer MEDICAID, OTHER, SELFPAY ==
[~2021-12-01 19:24] MED LIST: Iopamidol 370 76% 100 ML VIAL ONE
[2021-12-01 20:07] LABS: #Basophils 0.1 thou/uL (0.0-0.2); #Eosinphils 0.3 thou/uL (0.0-0.7); #Lymphocytes 1.9 thou/uL (1.20-3.40); #Monocytes 0.8 thou/uL (0.11-0.59); #Neutrophils 2.7 thou/uL (1.40-6.50); %Basophils 1.8 % (0.0-1.0); %Eosinophils 5.8 % (0.0-10.0); %Lymphocytes 32.8 % (21.0-51.0); %Monocytes 13.2 % (0.0-10.0); %Neutrophils 46.3 % (42.0-75.0); Hemoglobin 15.1 g/dL (14.0-18.0); Mean Corpuscular HGB CONC 33.7 g/dL (32.0-36.0); Mean Corpuscular Hemoglobin 33.2 pg (27.0-31.0); Mean Corpuscular Volume 98.7 fL (78.0-98.0); Mean Platelet Volume 6.8 fL (7.4-10.4); Platelet Count 276 thou/uL (130-400); RBC Distribution Width 11.9 % (11.5-14.5); Red Blood Cell (RBC) Count 4.54 mill/uL (4.70-6.10); White Blood Cell (WBC) Count 5.9 thou/uL (4.8-10.8)
[2021-12-01] MEDS ORDERED: Furosemide 40 MG/4 ML VIAL ONE (20:19)
[2021-12-01] MEDS ORDERED: Nitroglycerin 2% Ointment 1 INCH/1 GM Packet ONE (20:19)
[2021-12-01 20:27] LABS: ALT (SGPT) 32 U/L (8-55); AST (SGOT) 26 U/L (5-34); Albumin 3.8 g/dL (3.5-5.0); Alkaline Phosphatase 57 U/L (40-110); Anion Gap 15 mmol/L (10-20); BUN (Urea Nitrogen) 13 mg/dL (8.4-25.7); Bilirubin, Total 0.5 mg/dL (0.2-1.2); Calc. Creatinine Clearance 0 mL/min (70-130); Calcium 8.7 mg/dL (7.8-10.44); Carbon Dioxide 21 mmol/L (22-29); Chloride 106 mmol/L (98-107); Globulin 3.5 g/dL (2.4-3.5); Glucose 90 mg/dL (70-105); Potassium 3.6 mmol/L (3.5-5.1); Protein, Total 7.3 g/dL (6.0-8.3); Sodium 138 mmol/L (136-145)
[2021-12-01] MEDS ORDERED: Ondansetron PF 4 MG/2 ML Vial ONE (21:20)
[2021-12-01] MEDS ORDERED: Morphine 4 MG/ML VIAL ONE (21:20)
[2021-12-02 00:27] LABS: Troponin I 0.024 ng/mL (< 0.028)
[2021-12-02] MEDS ORDERED: HYDROcodone/Acetaminophen 10/325 mg Tablet PO SCH (01:00)
[2021-12-02 01:55] VITALS: BMI 30.6
[2021-12-02 02:41] LABS: Troponin I 0.021 ng/mL (< 0.028)
[2021-12-02] MEDS ORDERED: Nitroglycerin 0.4 MG TAB (25 Tab Bottle) SL PRN (09:04)
[2021-12-02] MEDS ORDERED: Ondansetron ODT 4 MG TAB PO PRN (09:08)
[2021-12-02] MEDS ORDERED: Senokot S 8.6-50 MG TAB PO PRN (09:08)
[2021-12-02] MEDS ORDERED: Acetaminophen 325 MG TAB PO PRN (09:08)
[2021-12-02] MEDS: Ipratropium Oral Inhaler INH SCH ×3 (11:05→18:30)
[2021-12-02 16:09] LABS: Bilirubin Negative (Negative); Blood, Urine Negative (Negative); Clarity Clear (Clear); Glucose, Urine (Dipstick) Normal (Negative); Ketone, Urine Negative (Negative); Leukocyte 250 Leu/uL (Negative); Nitrite Negative (Negative); Protein, Urine (Dipstick) 10 mg/dL (Neg-Trace); RBC/HPF 0-3 HPF (0-3); Specific Gravity, Urine 1.036 (1.002-1.036); Squamous Epithelial 0-3 HPF (0-3); Urobilinogen 3 mg/dL (Less than 2); pH, Urine 5.5 (5.0-9.0)
[2021-12-02 16:12] LABS: Bacteria/HPF Rare-Few HPF (None Seen)
[2021-12-02 16:17] LABS: Amphetamine Not Detected (NotDetected); Barbiturates Screen Not Detected (NotDetected); Benzodiazepine Screen Not Detected (NotDetected); Cocaine Metabolite Screen Not Detected (NotDetected); Methadone Not Detected (NotDetected); Methamphetamine Not Detected (NotDetected); Opiate Screen Detected (NotDetected); Oxycodone Screen Not Detected (NotDetected); Phencyclidine (PCP) Not Detected (NotDetected); THC/Cannabinoid Screen Detected (NotDetected); Tricyclic Screen Not Detected (NotDetected)
[2021-12-02] MEDS: Carvedilol 6.25 MG TAB PO SCH (16:50)
[2021-12-02] MEDS: hydrALAZINE 25 MG TAB PO SCH ×2 (16:51→20:11)
[2021-12-02] MEDS ORDERED: Carvedilol 6.25 MG TAB PO SCH (17:00)
[2021-12-02] MEDS: Isosorbide Dinitrate 20 MG TAB PO SCH ×2 (17:18→20:12)
[2021-12-02 17:24] LABS: SARS-CoV-2 PCR by NAA Not Detected (NotDetected)
[2021-12-02] MEDS: Acetaminophen/Codeine 30-300mg Tablet PO PRN (20:11)
[2021-12-02] MEDS: Sacubitril 49 MG/Valsartan 51 MG TABLET PO SCH (20:11)
[2021-12-02] MEDS: Furosemide 40 MG TAB PO SCH (20:12)
[2021-12-02] MEDS ORDERED: Atorvastatin Calcium 40 MG TAB PO SCH (21:00)
[2021-12-02] MEDS ORDERED: Cyclobenzaprine 10 MG TAB PO SCH (23:00)
[2021-12-03 05:09] LABS: #Basophils 0.1 thou/uL (0.0-0.2); #Eosinphils 0.3 thou/uL (0.0-0.7); #Lymphocytes 1.7 thou/uL (1.20-3.40); #Monocytes 0.7 thou/uL (0.11-0.59); #Neutrophils 2.6 thou/uL (1.40-6.50); %Basophils 1.2 % (0.0-1.0); %Eosinophils 5.3 % (0.0-10.0); %Lymphocytes 31.5 % (21.0-51.0); %Monocytes 12.7 % (0.0-10.0); %Neutrophils 49.4 % (42.0-75.0); Hemoglobin 14.3 g/dL (14.0-18.0); Mean Corpuscular HGB CONC 32.9 g/dL (32.0-36.0); Mean Corpuscular Hemoglobin 32.1 pg (27.0-31.0); Mean Corpuscular Volume 97.4 fL (78.0-98.0); Mean Platelet Volume 6.7 fL (7.4-10.4); Platelet Count 274 thou/uL (130-400); RBC Distribution Width 11.7 % (11.5-14.5); Red Blood Cell (RBC) Count 4.48 mill/uL (4.70-6.10); White Blood Cell (WBC) Count 5.2 thou/uL (4.8-10.8)
[2021-12-03 05:39] LABS: Anion Gap 11 mmol/L (10-20); BUN (Urea Nitrogen) 14 mg/dL (8.4-25.7); Calc. Creatinine Clearance 110 mL/min (70-130); Calcium 8.7 mg/dL (7.8-10.44); Carbon Dioxide 25 mmol/L (22-29); Cardiac Risk 4.4 (Less than 4.5); Chloride 106 mmol/L (98-107); Cholesterol 159 mg/dl (< 200 Desired); Glucose 94 mg/dL (70-105); HDL Cholesterol 36 mg/dL (>60 Neg Risk); LDL Cholesterol, Calculated 102 mg/dL; Magnesium 2.1 mg/dL (1.6-2.6); Potassium 3.2 mmol/L (3.5-5.1); Sodium 139 mmol/L (136-145); Triglycerides 107 mg/dL (Less than 150)
[2021-12-03] MEDS: Ipratropium Oral Inhaler INH SCH ×3 (07:54→14:38)
[2021-12-03] MEDS ORDERED: Spironolactone 25 MG TAB PO SCH ×2 (08:00→09:30)
[2021-12-03] MEDS: Sacubitril 49 MG/Valsartan 51 MG TABLET PO SCH (08:22)
[2021-12-03] MEDS: Carvedilol 6.25 MG TAB PO SCH (08:22)
[2021-12-03] MEDS: hydrALAZINE 25 MG TAB PO SCH ×2 (08:23→16:01)
[2021-12-03] MEDS: Furosemide 40 MG TAB PO SCH (08:23)
[2021-12-03] MEDS: Isosorbide Dinitrate 20 MG TAB PO SCH ×2 (08:23→16:02)
[2021-12-03] MEDS ORDERED: Cyclobenzaprine 10 MG TAB PO PRN (08:37)
[2021-12-03] MEDS: Acetaminophen/Codeine 30-300mg Tablet PO PRN (08:40)
[2021-12-03] MEDS ORDERED: Cyclobenzaprine 10 MG TAB PO SCH (08:45)
[2021-12-03] MEDS ORDERED: Aspirin Chewable 81 MG TAB PO SCH (09:00)
[2021-12-03] MEDS ORDERED: Enoxaparin Sodium 40 MG/0.4 ML SYRINGE SC SCH (09:00)
[2021-12-03 13:56] VITALS: BP 118/77; TEMP 97.8
[2021-12-04] MEDS ORDERED: Spironolactone 25 MG TAB PO SCH (08:00)
== END 2021-12-03 16:00 | disposition home or self-care (01) ==
LOC: ERS 19:24 → NEURO 23:10
PROVIDERS: ADMIT Internal Medicine; ATTEND Internal Medicine
DX: R07.89 Other chest pain (principal); I16.0 Hypertensive urgency; I11.0 Hypertensive heart disease with heart failure; I50.20 Unspecified systolic (congestive) heart failure; E87.6 Hypokalemia; F12.10 Cannabis abuse, uncomplicated; I95.1 Orthostatic hypotension; I25.10 Atherosclerotic heart disease of native coronary artery without angina pectoris; E78.5 Hyperlipidemia, unspecified; I73.9 Peripheral vascular disease, unspecified; J44.9 Chronic obstructive pulmonary disease, unspecified; F17.210 Nicotine dependence, cigarettes, uncomplicated; K74.60 Unspecified cirrhosis of liver; K80.20 Calculus of gallbladder without cholecystitis without obstruction; I42.8 Other cardiomyopathies; Z91.14 Patient's other noncompliance with medication regimen; Z79.82 Long term (current) use of aspirin; Z79.899 Other long term (current) drug therapy; Z95.810 Presence of automatic (implantable) cardiac defibrillator; Z20.822 Contact with and (suspected) exposure to COVID-19
CPT/HCPCS: 36415; 71275; 74174; 76705; 80048; 80053; 80061; 80306; 81003; 81015; 82533; 83690; 83735; 83880; 84443; 84484; 85025; 93005; 93306; 96372; 96374; 96375; G0378; J1650; J1940; J2270; J2405; Q9967; U0003; U0005

== ENCOUNTER 2022-06-08 04:40 | Inpatient (IN) | payer OTHER ==
[2022-06-08 06:22] LABS: #Basophils 0.1 thou/uL (0.0-0.2); #Eosinphils 0.1 thou/uL (0.0-0.7); #Lymphocytes 1.3 thou/uL (1.20-3.40); #Monocytes 0.6 thou/uL (0.11-0.59); #Neutrophils 4.3 thou/uL (1.40-6.50); %Basophils 0.9 % (0.0-1.0); %Eosinophils 1.2 % (0.0-10.0); %Lymphocytes 20.3 % (21.0-51.0); %Monocytes 9.9 % (0.0-10.0); %Neutrophils 67.7 % (42.0-75.0); Hemoglobin 15.9 g/dL (14.0-18.0); Mean Corpuscular HGB CONC 34.7 g/dL (32.0-36.0); Mean Corpuscular Hemoglobin 33.1 pg (27.0-31.0); Mean Corpuscular Volume 95.5 fL (78.0-98.0); Mean Platelet Volume 8.5 fL (7.4-10.4); Platelet Count 229 thou/uL (130-400); RBC Distribution Width 11.2 % (11.5-14.5); Red Blood Cell (RBC) Count 4.79 mill/uL (4.70-6.10); White Blood Cell (WBC) Count 6.4 thou/uL (4.8-10.8)
[2022-06-08 06:49] LABS: ALT (SGPT) 45 U/L (8-55); AST (SGOT) 30 U/L (5-34); Albumin 4.1 g/dL (3.5-5.0); Alkaline Phosphatase 53 U/L (40-110); Anion Gap 14 mmol/L (10-20); BUN (Urea Nitrogen) 9 mg/dL (8.4-25.7); Bilirubin, Total 0.8 mg/dL (0.2-1.2); Calc. Creatinine Clearance 0 mL/min (70-130); Calcium 9.2 mg/dL (7.8-10.44); Carbon Dioxide 24 mmol/L (22-29); Chloride 104 mmol/L (98-107); Estimated GFR 87; Globulin 3.8 g/dL (2.4-3.5); Glucose 130 mg/dL (70-105); Potassium 3.2 mmol/L (3.5-5.1); Protein, Total 7.9 g/dL (6.0-8.3); Sodium 139 mmol/L (136-145)
[2022-06-08] MEDS ORDERED: Acetaminophen 325 MG TAB ONE (07:43)
[2022-06-08 08:42] LABS: Troponin I 0.017 ng/mL (< 0.028)
[2022-06-08 09:33] VITALS: BMI 32.5
[2022-06-08] MEDS ORDERED: Ondansetron PF 4 MG/2 ML Vial IVP PRN (10:04)
[2022-06-08] MEDS ORDERED: Acetaminophen 325 MG TAB PO PRN (10:04)
[2022-06-08] MEDS ORDERED: Ondansetron ODT 4 MG TAB PO PRN (10:04)
[2022-06-08] MEDS ORDERED: hydrALAZINE 20 MG/ML VIAL SLOW IVP PRN (10:05)
[2022-06-08] MEDS ORDERED: Labetalol HCl 100 MG/20 ML VIAL SLOW IVP PRN (10:05)
[2022-06-08] MEDS ORDERED: traMADol HCl 50 MG TAB PO PRN (10:07)
[2022-06-08] MEDS ORDERED: Potassium Chloride 20 MEQ TAB PO SCH (10:15)
[2022-06-08 12:24] LABS: Troponin I 0.014 ng/mL (< 0.028)
[2022-06-08] MEDS: Cyclobenzaprine 10 MG TAB PO PRN (15:50)
[2022-06-08] MEDS: Sacubitril 49 MG/Valsartan 51 MG TABLET PO SCH (20:04)
[2022-06-08] MEDS: hydrALAZINE 25 MG TAB PO SCH (20:05)
[2022-06-08] MEDS: Atorvastatin Calcium 40 MG TAB PO SCH (20:05)
[2022-06-08] MEDS: Furosemide 40 MG TAB PO SCH (20:05)
[2022-06-08] MEDS: HYDROcodone/Acetaminophen 5/325 mg Tablet PO PRN (20:06)
[2022-06-08] MEDS ORDERED: Ipratropium Oral Inhaler INH SCH (21:00)
[2022-06-09] MEDS: HYDROcodone/Acetaminophen 5/325 mg Tablet PO PRN ×3 (02:24→20:57)
[2022-06-09] MEDS: Cyclobenzaprine 10 MG TAB PO PRN ×3 (02:24→20:56)
[2022-06-09 05:01] LABS: #Eosinphils 0.1 thou/uL (0.0-0.7); #Lymphocytes 1.2 thou/uL (1.20-3.40); #Monocytes 0.6 thou/uL (0.11-0.59); #Neutrophils 5.6 thou/uL (1.40-6.50); %Basophils 0.2 % (0.0-1.0); %Eosinophils 0.9 % (0.0-10.0); %Lymphocytes 16.6 % (21.0-51.0); %Monocytes 7.4 % (0.0-10.0); %Neutrophils 74.9 % (42.0-75.0); Hemoglobin 16.5 g/dL (14.0-18.0); Mean Corpuscular Hemoglobin 33.6 pg (27.0-31.0); Mean Corpuscular Volume 95.8 fL (78.0-98.0); Mean Platelet Volume 7.7 fL (7.4-10.4); Platelet Count 264 thou/uL (130-400); RBC Distribution Width 11.3 % (11.5-14.5); Red Blood Cell (RBC) Count 4.91 mill/uL (4.70-6.10); White Blood Cell (WBC) Count 7.5 thou/uL (4.8-10.8)
[2022-06-09 05:04] LABS: Anion Gap 13 mmol/L (10-20); BUN (Urea Nitrogen) 10 mg/dL (8.4-25.7); Calc. Creatinine Clearance 109 mL/min (70-130); Calcium 9.2 mg/dL (7.8-10.44); Carbon Dioxide 27 mmol/L (22-29); Chloride 104 mmol/L (98-107); Estimated GFR 84; Glucose 143 mg/dL (70-105); Potassium 3.4 mmol/L (3.5-5.1); Sodium 141 mmol/L (136-145)
[2022-06-09] MEDS: Ipratropium Oral Inhaler INH SCH ×4 (07:05→19:16)
[2022-06-09] MEDS: Sacubitril 49 MG/Valsartan 51 MG TABLET PO SCH ×2 (08:31→20:56)
[2022-06-09] MEDS: hydrALAZINE 25 MG TAB PO SCH ×3 (08:31→20:57)
[2022-06-09] MEDS: Furosemide 40 MG TAB PO SCH ×2 (08:31→20:57)
[2022-06-09] MEDS ORDERED: Regadenoson 0.4 MG/5 ML SYRINGE ONE (08:51)
[2022-06-09] MEDS: Enoxaparin Sodium 40 MG/0.4 ML SYRINGE SC SCH (12:50)
[2022-06-09] MEDS: Carvedilol 6.25 MG TAB PO SCH ×2 (12:50→15:59)
[2022-06-09] MEDS ORDERED: Potassium Chloride 20 MEQ TAB PO SCH (15:45)
[2022-06-09] MEDS ORDERED: Iopamidol-370 76% 500 ML 1 ML ONE (15:46)
[2022-06-09] MEDS ORDERED: Piperacillin/Tazobactam 4.5 GM in Sodium Chloride 0.9% 100 ML IVPB SCH (18:15)
[2022-06-09] MEDS ORDERED: Piperacillin/Tazobactam 3.375 GM in Sodium Chloride 0.9% 100 ML IVPB SCH (20:00)
[2022-06-09] MEDS: Atorvastatin Calcium 40 MG TAB PO SCH (20:57)
[2022-06-10] MEDS: Piperacillin/Tazobactam 3.375 GM in Sodium Chloride 0.9% 100 ML IVPB SCH ×3 (00:09→16:26)
[2022-06-10] MEDS: HYDROcodone/Acetaminophen 5/325 mg Tablet PO PRN ×4 (00:09→23:42)
[2022-06-10 05:15] LABS: ALT (SGPT) 34 U/L (8-55); AST (SGOT) 23 U/L (5-34); Albumin 3.4 g/dL (3.5-5.0); Alkaline Phosphatase 43 U/L (40-110); Anion Gap 14 mmol/L (10-20); BUN (Urea Nitrogen) 14 mg/dL (8.4-25.7); Bilirubin, Total 0.6 mg/dL (0.2-1.2); Calc. Creatinine Clearance 98 mL/min (70-130); Calcium 8.7 mg/dL (7.8-10.44); Carbon Dioxide 25 mmol/L (22-29); Chloride 105 mmol/L (98-107); Estimated GFR 73; Globulin 3.4 g/dL (2.4-3.5); Glucose 109 mg/dL (70-105); Potassium 3.5 mmol/L (3.5-5.1); Protein, Total 6.8 g/dL (6.0-8.3); Sodium 140 mmol/L (136-145)
[2022-06-10 05:19] LABS: Band 2 % (5-11); Eosinophils 3 % (0-10); Hemoglobin 14.4 g/dL (14.0-18.0); Lymphocytes 28 % (21-51); MDiff Complete? YES; Mean Corpuscular Hemoglobin 32.9 pg (27.0-31.0); Mean Corpuscular Volume 96.6 fL (78.0-98.0); Mean Platelet Volume 7.5 fL (7.4-10.4); Monocytes 18 % (0-10); Neutrophil 49 % (42-75); Platelet Count 237 thou/uL (130-400); RBC Distribution Width 11.3 % (11.5-14.5); Red Blood Cell (RBC) Count 4.37 mill/uL (4.70-6.10); White Blood Cell (WBC) Count 5.4 thou/uL (4.8-10.8)
[2022-06-10] MEDS: Ipratropium Oral Inhaler INH SCH ×4 (06:38→18:32)
[2022-06-10] MEDS: hydrALAZINE 25 MG TAB PO SCH ×3 (11:48→22:52)
[2022-06-10] MEDS: Sacubitril 49 MG/Valsartan 51 MG TABLET PO SCH ×2 (11:49→20:55)
[2022-06-10] MEDS: Carvedilol 6.25 MG TAB PO SCH ×2 (11:49→16:26)
[2022-06-10] MEDS: Enoxaparin Sodium 40 MG/0.4 ML SYRINGE SC SCH (11:49)
[2022-06-10] MEDS: Furosemide 40 MG TAB PO SCH ×2 (11:49→19:44)
[2022-06-10] MEDS: Cyclobenzaprine 10 MG TAB PO PRN (12:05)
[2022-06-10] MEDS: Amoxicillin/Potassium Clav 875 MG TAB PO SCH (19:43)
[2022-06-10] MEDS: Atorvastatin Calcium 40 MG TAB PO SCH (19:44)
[2022-06-11] MEDS: Ipratropium Oral Inhaler INH SCH ×4 (02:27→14:20)
[2022-06-11] MEDS: Furosemide 40 MG TAB PO SCH (08:15)
[2022-06-11] MEDS: Amoxicillin/Potassium Clav 875 MG TAB PO SCH (08:15)
[2022-06-11] MEDS: Sacubitril 49 MG/Valsartan 51 MG TABLET PO SCH (08:15)
[2022-06-11] MEDS: Carvedilol 6.25 MG TAB PO SCH (08:15)
[2022-06-11] MEDS: hydrALAZINE 25 MG TAB PO SCH (08:15)
[2022-06-11] MEDS: Enoxaparin Sodium 40 MG/0.4 ML SYRINGE SC SCH (08:16)
[2022-06-11 08:20] VITALS: TEMP 97.7
[2022-06-11] MEDS: HYDROcodone/Acetaminophen 5/325 mg Tablet PO PRN (11:46)
[2022-06-11 11:47] VITALS: BP 164/90
== END 2022-06-11 14:00 | DRG 552 ==
LOC: ERS 04:40 → EEVIPCON 09:25 → 2SW 09:25 → OBSVTOIN 06-10 11:57
PROVIDERS: ADMIT Internal Medicine; ATTEND Internal Medicine
DX: M54.9 Dorsalgia, unspecified (principal); I50.22 Chronic systolic (congestive) heart failure; I42.9 Cardiomyopathy, unspecified; I13.0 Hypertensive heart and chronic kidney disease with heart failure and stage 1 through stage 4 chronic kidney disease, or unspecified chronic kidney disease; R07.9 Chest pain, unspecified; I25.10 Atherosclerotic heart disease of native coronary artery without angina pectoris; I73.9 Peripheral vascular disease, unspecified; E78.5 Hyperlipidemia, unspecified; J44.9 Chronic obstructive pulmonary disease, unspecified; G89.29 Other chronic pain; K80.20 Calculus of gallbladder without cholecystitis without obstruction; K74.60 Unspecified cirrhosis of liver; E27.8 Other specified disorders of adrenal gland; N18.2 Chronic kidney disease, stage 2 (mild); E87.6 Hypokalemia; Z79.899 Other long term (current) drug therapy; Z79.82 Long term (current) use of aspirin; Z95.810 Presence of automatic (implantable) cardiac defibrillator; Z87.891 Personal history of nicotine dependence; Z82.49 Family history of ischemic heart disease and other diseases of the circulatory system; Z80.9 Family history of malignant neoplasm, unspecified
CPT/HCPCS: 36415; 36416; 71045; 71275; 78227; 78452; 80048; 80053; 83880; 84484; 85025; 85379; 93005; 93017; 94760; 96365; 96366; 96372; A9500; A9537; G0378; J1650; J2543; J2785; J3490; Q0162; Q9967; U0003; U0005

== ENCOUNTER 2022-07-26 22:26 | Emergency (ER) | payer OTHER ==
[~2022-07-26 22:26] MED LIST changes: -Iopamidol 370 76% 100 ML VIAL ONE; +Iopamidol-370 76% 500 ML 1 ML ONE
[2022-07-26 22:48] LABS: #Basophils 0.1 thou/uL (0.0-0.2); #Eosinphils 0.2 thou/uL (0.0-0.7); #Lymphocytes 1.6 thou/uL (1.20-3.40); #Monocytes 0.7 thou/uL (0.11-0.59); #Neutrophils 2.4 thou/uL (1.40-6.50); %Eosinophils 4.7 % (0.0-10.0); %Lymphocytes 31.8 % (21.0-51.0); %Monocytes 14.1 % (0.0-10.0); %Neutrophils 48.4 % (42.0-75.0); Hemoglobin 13.6 g/dL (14.0-18.0); Mean Corpuscular HGB CONC 33.6 g/dL (32.0-36.0); Mean Corpuscular Hemoglobin 32.9 pg (27.0-31.0); Mean Platelet Volume 7.5 fL (7.4-10.4); Platelet Count 210 thou/uL (130-400); RBC Distribution Width 11.5 % (11.5-14.5); Red Blood Cell (RBC) Count 4.14 mill/uL (4.70-6.10)
[2022-07-26 23:05] LABS: ALT (SGPT) 45 U/L (8-55); AST (SGOT) 33 U/L (5-34); Alkaline Phosphatase 50 U/L (40-110); Anion Gap 13 mmol/L (10-20); BUN (Urea Nitrogen) 15 mg/dL (8.4-25.7); Bilirubin, Total 0.7 mg/dL (0.2-1.2); Calc. Creatinine Clearance 0 mL/min (70-130); Calcium 9.2 mg/dL (7.8-10.44); Carbon Dioxide 25 mmol/L (22-29); Chloride 108 mmol/L (98-107); Estimated GFR 81; Globulin 3.7 g/dL (2.4-3.5); Glucose 117 mg/dL (70-105); Potassium 3.6 mmol/L (3.5-5.1); Protein, Total 7.7 g/dL (6.0-8.3); Sodium 142 mmol/L (136-145)
[2022-07-26] MEDS ORDERED: Ondansetron PF 4 MG/2 ML Vial ONE (23:39)
[2022-07-26] MEDS ORDERED: Morphine 4 MG/ML VIAL ONE (23:39)
[2022-07-26] MEDS ORDERED: Aspirin Chewable 81 MG TAB ONE (23:39)
== END 2022-07-27 02:58 ==
LOC: ERS 22:26
DX: R07.89 Other chest pain (principal); R10.31 Right lower quadrant pain; I25.10 Atherosclerotic heart disease of native coronary artery without angina pectoris; I11.0 Hypertensive heart disease with heart failure; I50.9 Heart failure, unspecified; E78.5 Hyperlipidemia, unspecified; J44.9 Chronic obstructive pulmonary disease, unspecified; F17.210 Nicotine dependence, cigarettes, uncomplicated; Z79.899 Other long term (current) drug therapy
CPT/HCPCS: 36415; 71045; 71275; 74177; 80053; 83690; 83880; 84484; 85025; 93005; 96374; 96375; J2270; J2405; Q9967

== ENCOUNTER 2022-08-05 22:52 | Inpatient (IN) | payer OTHER ==
[2022-08-05 23:49] LABS: ALT (SGPT) 54 U/L (8-55); AST (SGOT) 40 U/L (5-34); Albumin 4.1 g/dL (3.5-5.0); Alkaline Phosphatase 49 U/L (40-110); Anion Gap 11 mmol/L (10-20); BUN (Urea Nitrogen) 13 mg/dL (8.4-25.7); Bilirubin, Total 0.8 mg/dL (0.2-1.2); Calc. Creatinine Clearance 0 mL/min (70-130); Calcium 9.2 mg/dL (7.8-10.44); Carbon Dioxide 25 mmol/L (22-29); Chloride 110 mmol/L (98-107); Estimated GFR 79; Globulin 3.6 g/dL (2.4-3.5); Glucose 106 mg/dL (70-105); Protein, Total 7.7 g/dL (6.0-8.3); Sodium 142 mmol/L (136-145)
[2022-08-06 01:00] LABS: Hemoglobin 13.1 g/dL (14.0-18.0); Mean Corpuscular HGB CONC 33.5 g/dL (32.0-36.0); Mean Corpuscular Hemoglobin 32.6 pg (27.0-31.0); Mean Corpuscular Volume 97.4 fl (78.0-98.0); Platelet Count 268 thou/uL (130-400); RBC Distribution Width 11.5 % (11.5-14.5); Red Blood Cell (RBC) Count 4.03 mill/uL (4.70-6.10); White Blood Cell (WBC) Count 4.7 thou/uL (4.8-10.8)
[2022-08-06] MEDS ORDERED: Mag-Al 1200 mg/1200 mg/30 ML UDCUP ONE (01:17)
[2022-08-06] MEDS ORDERED: Ondansetron PF 4 MG/2 ML Vial ONE ×2 (01:17→03:03)
[2022-08-06] MEDS ORDERED: Aspirin Chewable 81 MG TAB ONE (01:17)
[2022-08-06 01:35] LABS: Band 1 % (5-11); Eosinophils 1 % (0-10); Lymphocytes 43 % (21-51); MDiff Complete? YES; Monocytes 9 % (0-10); Neutrophil 43 % (42-75)
[2022-08-06] MEDS ORDERED: Ketorolac Tromethamine 30 MG/ML VIAL ONE (03:03)
[2022-08-06] MEDS ORDERED: Acetaminophen 650 MG Suppository PR PRN (08:33)
[2022-08-06] MEDS ORDERED: Ondansetron ODT 4 MG TAB PO PRN (08:33)
[2022-08-06] MEDS ORDERED: Ondansetron PF 4 MG/2 ML Vial IVP PRN (08:33)
[2022-08-06] MEDS ORDERED: Sodium Chloride 0.9% 1,000 ML IV SCH (09:00)
[2022-08-06] MEDS ORDERED: Morphine 2 MG/ML VIAL SLOW IVP PRN (10:15)
[2022-08-06] MEDS ORDERED: Ketorolac Tromethamine 30 MG/ML VIAL IVP SCH (10:15)
[2022-08-06 11:24] VITALS: BMI 33.5
[2022-08-06] MEDS: hydrALAZINE 25 MG TAB PO SCH ×2 (15:05→21:26)
[2022-08-06 15:20] LABS: SARS-CoV-2 NAA Rapid Test Not Detected (NotDetected)
[2022-08-06] MEDS: Carvedilol 25 MG TAB PO SCH (17:29)
[2022-08-06] MEDS: Acetaminophen 325 MG TAB PO PRN ×2 (17:29→21:27)
[2022-08-06] MEDS: Isosorbide Dinitrate 20 MG TAB PO SCH (21:25)
[2022-08-06] MEDS: Furosemide 40 MG TAB PO SCH (21:26)
[2022-08-06] MEDS: Sacubitril 49 MG/Valsartan 51 MG TABLET PO SCH (21:26)
[2022-08-06] MEDS: Atorvastatin Calcium 40 MG TAB PO SCH (21:27)
[2022-08-06] MEDS: Morphine 4 MG/ML VIAL SLOW IVP PRN (21:35)
[2022-08-07 05:28] LABS: #Basophils 0.1 thou/uL (0.0-0.2); #Eosinphils 0.2 thou/uL (0.0-0.7); #Lymphocytes 1.3 thou/uL (1.20-3.40); #Monocytes 0.5 thou/uL (0.11-0.59); #Neutrophils 1.4 thou/uL (1.40-6.50); %Basophils 2.2 % (0.0-1.0); %Eosinophils 5.5 % (0.0-10.0); %Monocytes 14.1 % (0.0-10.0); %Neutrophils 40.3 % (42.0-75.0); Hemoglobin 13.2 g/dL (14.0-18.0); Mean Corpuscular HGB CONC 33.1 g/dL (32.0-36.0); Mean Corpuscular Hemoglobin 32.8 pg (27.0-31.0); Mean Platelet Volume 7.1 fL (7.4-10.4); Platelet Count 262 thou/uL (130-400); RBC Distribution Width 11.3 % (11.5-14.5); Red Blood Cell (RBC) Count 4.02 mill/uL (4.70-6.10); White Blood Cell (WBC) Count 3.5 thou/uL (4.8-10.8)
[2022-08-07] MEDS: Morphine 4 MG/ML VIAL SLOW IVP PRN ×2 (06:13→20:49)
[2022-08-07 06:55] LABS: ALT (SGPT) 51 U/L (8-55); AST (SGOT) 39 U/L (5-34); Albumin 3.5 g/dL (3.5-5.0); Alkaline Phosphatase 44 U/L (40-110); Anion Gap 10 mmol/L (10-20); BUN (Urea Nitrogen) 13 mg/dL (8.4-25.7); Bilirubin, Total 1.1 mg/dL (0.2-1.2); Calc. Creatinine Clearance 106 mL/min (70-130); Calcium 8.4 mg/dL (7.8-10.44); Carbon Dioxide 26 mmol/L (22-29); Chloride 105 mmol/L (98-107); Estimated GFR 76; Globulin 3.4 g/dL (2.4-3.5); Glucose 86 mg/dL (70-105); Potassium 3.4 mmol/L (3.5-5.1); Protein, Total 6.9 g/dL (6.0-8.3); Sodium 138 mmol/L (136-145)
[2022-08-07] MEDS: Sacubitril 49 MG/Valsartan 51 MG TABLET PO SCH ×2 (09:17→20:50)
[2022-08-07] MEDS: Aspirin Chewable 81 MG TAB PO SCH (09:18)
[2022-08-07] MEDS: hydrALAZINE 25 MG TAB PO SCH ×3 (09:18→20:46)
[2022-08-07] MEDS: Isosorbide Dinitrate 20 MG TAB PO SCH ×3 (09:18→20:47)
[2022-08-07] MEDS: Furosemide 40 MG TAB PO SCH ×2 (09:18→20:50)
[2022-08-07] MEDS: Carvedilol 25 MG TAB PO SCH ×2 (09:18→17:10)
[2022-08-07] MEDS ORDERED: Ondansetron HCl/PF 4 MG/2 ML Vial IVP PRN ×2 (10:42→15:30)
[2022-08-07] MEDS ORDERED: Ketorolac Tromethamine 30 MG/ML VIAL IVP PRN (10:42)
[2022-08-07] MEDS ORDERED: Promethazine HCl 25 MG/ML VIAL IVPB PRN ×2 (10:42→15:30)
[2022-08-07] MEDS ORDERED: HYDROmorphone 2 MG/ML VIAL SLOW IVP PRN ×2 (10:42→15:30)
[2022-08-07] MEDS ORDERED: Meperidine HCl/PF 25 MG/ML VIAL SLOW IVP PRN ×2 (10:42)
[2022-08-07] MEDS ORDERED: Promethazine HCl 25 MG/ML VIAL IM PRN ×2 (10:42→15:30)
[2022-08-07] MEDS ORDERED: fentaNYL Citrate/PF 100 MCG/2 ML SYRINGE ONE (10:45)
[2022-08-07] MEDS ORDERED: Ketamine 50 MG/ML (10ML VIAL) ONE (10:46)
[2022-08-07] MEDS ORDERED: Iopamidol 30 ML ONE (10:50)
[2022-08-07] MEDS ORDERED: Bupivacaine/Epinephrine 0.25% 30 ML VIAL ONE (10:50)
[2022-08-07] MEDS ORDERED: Sodium Chloride 0.9% 100 ML ONE (11:08)
[2022-08-07] MEDS ORDERED: CEFAZOLIN 2 GM VIAL ONE (11:08)
[2022-08-07] MEDS ORDERED: ePHEDrine 50 MG/ML VIAL ONE ×2 (11:15→13:24)
[2022-08-07] MEDS ORDERED: Rocuronium Bromide 10 MG/ML (10ML VIAL) ONE (11:15)
[2022-08-07] MEDS ORDERED: Vecuronium 10 MG VIAL ONE ×2 (11:15→13:24)
[2022-08-07] MEDS ORDERED: Ketorolac Tromethamine 30 MG/ML VIAL ONE (11:15)
[2022-08-07] MEDS ORDERED: PROPOFOL 200 MG/20 ML VIAL ONE (11:15)
[2022-08-07] MEDS ORDERED: Dexamethasone 20 MG/5 ML VIAL ONE (11:15)
[2022-08-07] MEDS ORDERED: SUGAMMADEX SODIUM 200 MG/2 ML VIAL ONE (12:14)
[2022-08-07] MEDS ORDERED: Iopamidol 15 ML ONE ×2 (12:55)
[2022-08-07] MEDS ORDERED: Indomethacin 50 MG SUPP ONE (13:00)
[2022-08-07] MEDS ORDERED: Glycopyrrolate 0.2 MG/ML 5 ML SYRINGE ONE (13:24)
[2022-08-07] MEDS ORDERED: PHENYLEPHRINE-NS 100 MCG/ML 10 ML SYRINGE ONE (13:24)
[2022-08-07] MEDS ORDERED: NEOSTIGMINE 3 MG/3 ML SYR 3 MG/3 ML SYRINGE ONE (13:24)
[2022-08-07] MEDS ORDERED: Ondansetron PF 4 MG/2 ML Vial ONE (13:24)
[2022-08-07] MEDS ORDERED: FENTANYL 50 MCG/ML VIAL 50 MCG/ML VIAL ONE (15:37)
[2022-08-07] MEDS ORDERED: Piperacillin/Tazobactam 3.375 GM in Sodium Chloride 0.9% 100 ML IVPB SCH (16:00)
[2022-08-07] MEDS: Atorvastatin Calcium 40 MG TAB PO SCH (20:47)
[2022-08-07] MEDS: Acetaminophen 325 MG TAB PO PRN (20:47)
[2022-08-07] MEDS: Piperacillin/Tazobactam 3.375 GM in Sodium Chloride 0.9% 100 ML IVPB SCH (20:50)
[2022-08-08] MEDS: Morphine 4 MG/ML VIAL SLOW IVP PRN ×3 (00:32→20:05)
[2022-08-08] MEDS: Piperacillin/Tazobactam 3.375 GM in Sodium Chloride 0.9% 100 ML IVPB SCH ×2 (04:42→11:26)
[2022-08-08 06:30] LABS: ALT (SGPT) 61 U/L (8-55); AST (SGOT) 51 U/L (5-34); Albumin 3.6 g/dL (3.5-5.0); Alkaline Phosphatase 45 U/L (40-110); Anion Gap 14 mmol/L (10-20); BUN (Urea Nitrogen) 19 mg/dL (8.4-25.7); Bilirubin, Total 0.8 mg/dL (0.2-1.2); Calc. Creatinine Clearance 91 mL/min (70-130); Calcium 9.4 mg/dL (7.8-10.44); Carbon Dioxide 22 mmol/L (22-29); Chloride 106 mmol/L (98-107); Estimated GFR 63; Globulin 3.8 g/dL (2.4-3.5); Glucose 134 mg/dL (70-105); Iron 56 ug/dL (65-175); Iron Binding Capacity, Total 303 mcg/dL (261-462); Lipase 4 U/L (8-78); Potassium 4.2 mmol/L (3.5-5.1); Protein, Total 7.4 g/dL (6.0-8.3); Sodium 138 mmol/L (136-145)
[2022-08-08 06:57] LABS: Hemoglobin 14.2 g/dL (14.0-18.0); Mean Corpuscular HGB CONC 32.8 g/dL (32.0-36.0); Mean Corpuscular Hemoglobin 32.2 pg (27.0-31.0); Mean Corpuscular Volume 98.4 fl (78.0-98.0); Mean Platelet Volume 7.6 fL (7.4-10.4); Platelet Count 304 thou/uL (130-400); RBC Distribution Width 11.3 % (11.5-14.5); White Blood Cell (WBC) Count 15.4 thou/uL (4.8-10.8)
[2022-08-08 06:58] LABS: HBSAg Index 0.28 S/CO (0-0.99); Hep B Surf Ag Non-Reactive S/CO (NonReactive)
[2022-08-08 07:27] LABS: Band 36 % (5-11); Lymphocytes 5 % (21-51); MDiff Complete? YES; Monocytes 3 % (0-10); Neutrophil 54 % (42-75); Platelet Morphology Comment Appears Adequate; RBC Morphology 1; Reactive Lymphocytes 2 % (0-10); Vacuoles SLIGHT
[2022-08-08 07:46] LABS: Hep C IgG Ab Reflex HepC Qnt (NonReactive)
[2022-08-08 08:35] LABS: Hep B Core Total Ab Reactive (NonReactive)
[2022-08-08 08:36] LABS: Hep B Core Total Index 3.13 S/CO (0-0.79)
[2022-08-08 08:37] LABS: Hep C Index 10.25 S/CO (0-0.79)
[2022-08-08 08:39] LABS: HBSAB Concentration 10.96 mIU/mL
[2022-08-08 09:02] LABS: Ferritin 138.42 ng/mL (22-322)
[2022-08-08] MEDS: hydrALAZINE 25 MG TAB PO SCH ×3 (09:23→20:04)
[2022-08-08] MEDS: Aspirin Chewable 81 MG TAB PO SCH (09:23)
[2022-08-08] MEDS: Isosorbide Dinitrate 20 MG TAB PO SCH ×3 (09:24→20:04)
[2022-08-08] MEDS: Carvedilol 25 MG TAB PO SCH ×2 (09:24→17:56)
[2022-08-08] MEDS: Saccharomyces boulardii 250 MG CAP PO SCH (09:24)
[2022-08-08] MEDS: Furosemide 40 MG TAB PO SCH ×2 (09:24→20:04)
[2022-08-08] MEDS ORDERED: Electrolyte Replacement Protocol 1 EACH FS SCH (09:30)
[2022-08-08] MEDS: Sacubitril 49 MG/Valsartan 51 MG TABLET PO SCH ×2 (09:35→20:04)
[2022-08-08] MEDS: HYDROcodone/Acetaminophen 5/325 mg Tablet PO PRN ×2 (09:36→20:05)
[2022-08-08] MEDS ORDERED: Magnesium 2 GM/50 ML(in water) 2 GM in Premix Bag 1 BAG IVPB SCH (12:30)
[2022-08-08] MEDS: Amoxicillin/Potassium Clav 500 MG TAB PO SCH (20:04)
[2022-08-08] MEDS: Magnesium Oxide 400 MG TAB PO SCH (20:04)
[2022-08-09] MEDS: Morphine 4 MG/ML VIAL SLOW IVP PRN (00:22)
[2022-08-09] MEDS ORDERED: traMADol HCl 50 MG TAB PO PRN (03:04)
[2022-08-09] MEDS ORDERED: HYDROcodone/Acetaminophen 5/325 mg Tablet PO PRN (03:39)
[2022-08-09 05:46] LABS: #Lymphocytes 1.8 thou/uL (1.20-3.40); #Monocytes 1.5 thou/uL (0.11-0.59); #Neutrophils 9.9 thou/uL (1.40-6.50); %Eosinophils 0.2 % (0.0-10.0); %Lymphocytes 13.2 % (21.0-51.0); %Monocytes 11.4 % (0.0-10.0); %Neutrophils 75.2 % (42.0-75.0); Hemoglobin 12.3 g/dL (14.0-18.0); Mean Corpuscular HGB CONC 31.9 g/dL (32.0-36.0); Mean Corpuscular Hemoglobin 31.3 pg (27.0-31.0); Mean Platelet Volume 6.9 fL (7.4-10.4); Platelet Count 254 thou/uL (130-400); RBC Distribution Width 11.5 % (11.5-14.5); Red Blood Cell (RBC) Count 3.93 mill/uL (4.70-6.10); White Blood Cell (WBC) Count 13.2 thou/uL (4.8-10.8)
[2022-08-09 06:17] LABS: ALT (SGPT) 49 U/L (8-55); AST (SGOT) 40 U/L (5-34); Albumin 3.6 g/dL (3.5-5.0); Alkaline Phosphatase 53 U/L (40-110); Anion Gap 9 mmol/L (10-20); BUN (Urea Nitrogen) 21 mg/dL (8.4-25.7); Bilirubin, Total 0.7 mg/dL (0.2-1.2); Calc. Creatinine Clearance 103 mL/min (70-130); Calcium 8.9 mg/dL (7.8-10.44); Carbon Dioxide 26 mmol/L (22-29); Chloride 107 mmol/L (98-107); Estimated GFR 73; Globulin 3.5 g/dL (2.4-3.5); Glucose 130 mg/dL (70-105); Potassium 3.8 mmol/L (3.5-5.1); Protein, Total 7.1 g/dL (6.0-8.3); Sodium 138 mmol/L (136-145)
[2022-08-09] MEDS: traMADol HCl 50 MG TAB PO SCH ×2 (09:37→15:48)
[2022-08-09] MEDS: Sacubitril 49 MG/Valsartan 51 MG TABLET PO SCH (09:38)
[2022-08-09] MEDS: Amoxicillin/Potassium Clav 500 MG TAB PO SCH (09:38)
[2022-08-09] MEDS: Carvedilol 25 MG TAB PO SCH (09:39)
[2022-08-09] MEDS: Aspirin Chewable 81 MG TAB PO SCH (09:39)
[2022-08-09] MEDS: hydrALAZINE 25 MG TAB PO SCH ×2 (09:39→15:49)
[2022-08-09] MEDS: Furosemide 40 MG TAB PO SCH (09:39)
[2022-08-09] MEDS: Magnesium Oxide 400 MG TAB PO SCH (09:40)
[2022-08-09] MEDS: Isosorbide Dinitrate 20 MG TAB PO SCH ×2 (09:40→15:49)
[2022-08-09] MEDS: Saccharomyces boulardii 250 MG CAP PO SCH (09:40)
[2022-08-09 14:15] LABS: Alpha-1-Antitrypsin 172 mg/dL (101-187)
[2022-08-09 15:59] VITALS: BP 148/72; TEMP 97.3
[2022-08-11 08:37] LABS: HCV RNA, log10 6.953 (.); Hep C PCR-Quant 8970000 IU/mL (.)
[2022-08-11 13:37] LABS: Smooth Muscle Total ABS 16 Units (0-19)
== END 2022-08-09 15:25 | DRG 418 ==
LOC: ERS 22:52 → SJJU 08-06 08:16 → EEVIPCON 08-06 08:36
PROVIDERS: ADMIT Student in an Organized Health Care Education/Training Program; ATTEND Internal Medicine
PROC: 0FT44ZZ Resection of Gallbladder, Percutaneous Endoscopic Approach (ICD-10-PCS; principal; 2022-08-07)
PROC: 0F798DZ Dilation of Common Bile Duct with Intraluminal Device, Via Natural or Artificial Opening Endoscopic (ICD-10-PCS; 2022-08-07)
DX: K80.00 Calculus of gallbladder with acute cholecystitis without obstruction (principal); I42.0 Dilated cardiomyopathy; K91.81 Other intraoperative complications of digestive system; I50.22 Chronic systolic (congestive) heart failure; I25.10 Atherosclerotic heart disease of native coronary artery without angina pectoris; E78.5 Hyperlipidemia, unspecified; I73.9 Peripheral vascular disease, unspecified; J44.9 Chronic obstructive pulmonary disease, unspecified; G89.29 Other chronic pain; M54.9 Dorsalgia, unspecified; Z20.822 Contact with and (suspected) exposure to COVID-19; K74.60 Unspecified cirrhosis of liver; I11.0 Hypertensive heart disease with heart failure; K83.8 Other specified diseases of biliary tract; E66.9 Obesity, unspecified; B19.20 Unspecified viral hepatitis C without hepatic coma; I25.5 Ischemic cardiomyopathy; Z95.810 Presence of automatic (implantable) cardiac defibrillator; Z79.82 Long term (current) use of aspirin; Z79.899 Other long term (current) drug therapy; Z82.49 Family history of ischemic heart disease and other diseases of the circulatory system; Z87.891 Personal history of nicotine dependence; Z68.33 Body mass index [BMI] 33.0-33.9, adult
CPT/HCPCS: 36415; 71045; 74330; 76705; 80053; 82103; 82105; 82728; 83516; 83540; 83550; 83690; 83735; 83880; 84484; 85025; 86015; 86704; 86706; 86708; 86803; 87340; 87522; 88304; 93005; 96374; 96375; 96376; C1713; C2617; J1100; J1610; J1885; J2270; J2405; J2543; J2704; J3475; J3490; J7050; Q9967; U0002

== ENCOUNTER 2022-11-20 09:02 | Outpatient (CLI) | payer OTHER | END 2022-11-20 09:03 | disposition home or self-care (01) | LOC: BICULT 09:02 | PROVIDERS: ATTEND Family Medicine | DX: R22.1 Localized swelling, mass and lump, neck (principal) | CPT/HCPCS: 76536 ==

== ENCOUNTER 2022-11-26 08:07 | Day surgery (SDC) | payer OTHER ==
[2022-11-22 11:55] VITALS: BMI 34.0
[2022-11-26] MEDS ORDERED: Indomethacin 50 MG SUPP ONE (09:17)
[2022-11-26] MEDS ORDERED: Iopamidol 30 ML ONE (09:18)
[2022-11-26] MEDS ORDERED: SUGAMMADEX SODIUM 200 MG/2 ML VIAL ONE (09:23)
[2022-11-26] MEDS ORDERED: Fentanyl 100 MCG/2 ML VIAL ONE (09:25)
[2022-11-26] MEDS ORDERED: Lidocaine 1% PF 5 ML VIAL ONE (09:37)
[2022-11-26] MEDS ORDERED: Rocuronium Bromide 10 MG/ML (10ML VIAL) ONE (09:37)
[2022-11-26] MEDS ORDERED: PROPOFOL 200 MG/20 ML VIAL ONE (09:37)
[2022-11-26] MEDS ORDERED: Esmolol 100 MG/10 ML VIAL ONE (09:37)
[2022-11-26] MEDS ORDERED: Ondansetron PF 4 MG/2 ML Vial ONE (09:37)
[2022-11-26] MEDS ORDERED: Dexamethasone 20 MG/5 ML VIAL ONE (09:37)
[2022-11-26] MEDS ORDERED: Midazolam HCl 2 mg/2 ml Vial ONE (09:50)
[2022-11-26] MEDS ORDERED: cefTRIAXone\\ROCEPHIN 1 GM VIAL ONE (09:58)
[2022-11-26] MEDS ORDERED: Sodium Chloride 0.9% 100 ML ONE (09:58)
== END 2022-11-26 11:48 | disposition home or self-care (01) ==
LOC: SDC 08:07
PROVIDERS: ATTEND Internal Medicine Gastroenterology
PROC: 0FPB8DZ Removal of Intraluminal Device from Hepatobiliary Duct, Via Natural or Artificial Opening Endoscopic (ICD-10-PCS; principal; 2022-11-26)
DX: K83.8 Other specified diseases of biliary tract (principal); J44.9 Chronic obstructive pulmonary disease, unspecified; I42.9 Cardiomyopathy, unspecified; K74.60 Unspecified cirrhosis of liver; I11.0 Hypertensive heart disease with heart failure; I50.9 Heart failure, unspecified; E78.5 Hyperlipidemia, unspecified; Z87.891 Personal history of nicotine dependence; Z79.82 Long term (current) use of aspirin; Z79.899 Other long term (current) drug therapy; Z90.49 Acquired absence of other specified parts of digestive tract; Z95.810 Presence of automatic (implantable) cardiac defibrillator
CPT/HCPCS: 74330; J0696; J1100; J2250; J2405; J2704; J3010; J3490; Q9967

== ENCOUNTER 2023-01-24 10:58 | Emergency (ER) | payer OTHER ==
[2023-01-24 12:29] LABS: Hemoglobin 12.6 g/dL (14.0-18.0); Mean Corpuscular HGB CONC 33.9 g/dL (32.0-36.0); Mean Corpuscular Hemoglobin 33.1 pg (27.0-31.0); Mean Corpuscular Volume 97.6 fl (78.0-98.0); Mean Platelet Volume 7.7 fL (7.4-10.4); Platelet Count 205 10x3/uL (130-400); RBC Distribution Width 12.2 % (11.5-14.5); Red Blood Cell (RBC) Count 3.82 mill/uL (4.70-6.10); White Blood Cell (WBC) Count 4.6 10x3/uL (4.8-10.8)
[2023-01-24 12:41] LABS: Bilirubin Negative (Negative); Blood, Urine Negative (Negative); Clarity Clear (Clear); Glucose, Urine (Dipstick) >=1000 mg/dL (Negative); Ketone, Urine Negative (Negative); Leukocyte Negative Leu/uL (Negative); Nitrite Negative (Negative); Protein, Urine (Dipstick) Negative (Neg-Trace); Specific Gravity, Urine 1.005 (1.002-1.036); Urobilinogen Normal mg/dL (Less than 2)
[2023-01-24 12:47] LABS: Band 1 % (5-11); Eosinophils 4 % (0-10); Lymphocytes 28 % (21-51); MDiff Complete? YES; Monocytes 11 % (0-10); Neutrophil 54 % (42-75); Platelet Morphology Comment Appears Adequate; Polychromasia SLIGHT = 2-3 cells (100X) (0-2/hpf)
[2023-01-24 12:49] LABS: ALT (SGPT) 72 U/L (8-55); AST (SGOT) 50 U/L (5-34); Albumin 3.7 g/dL (3.5-5.0); Alkaline Phosphatase 45 U/L (40-110); Anion Gap 14 mmol/L (10-20); BUN (Urea Nitrogen) 10 mg/dL (8.4-25.7); Bilirubin, Total 0.7 mg/dL (0.2-1.2); Calc. Creatinine Clearance 0 mL/min (70-130); Calcium 9.4 mg/dL (7.8-10.44); Carbon Dioxide 22 mmol/L (22-29); Chloride 109 mmol/L (98-107); Estimated GFR 70; Globulin 3.8 g/dL (2.4-3.5); Glucose 123 mg/dL (70-105); Potassium 3.8 mmol/L (3.5-5.1); Protein, Total 7.5 g/dL (6.0-8.3); Sodium 141 mmol/L (136-145)
[2023-01-24] MEDS ORDERED: Furosemide 40 MG/4 ML VIAL ONE (12:58)
[2023-01-24] MEDS ORDERED: Ipratropium Bromide 2.5 ml Neb ONE (13:10)
[2023-01-24] MEDS ORDERED: Albuterol 2.5 MG/0.5 ML NEB ONE (13:10)
== END 2023-01-24 14:34 | disposition home or self-care (01) ==
LOC: ERS 10:58
DX: I11.0 Hypertensive heart disease with heart failure (principal); I50.9 Heart failure, unspecified; J44.9 Chronic obstructive pulmonary disease, unspecified; E78.5 Hyperlipidemia, unspecified; I25.10 Atherosclerotic heart disease of native coronary artery without angina pectoris; F17.210 Nicotine dependence, cigarettes, uncomplicated; Z79.899 Other long term (current) drug therapy
CPT/HCPCS: 36415; 71045; 80053; 81003; 83880; 84484; 85025; 93005; 96374; J1940; J7611

== ENCOUNTER 2023-02-06 11:58 | Inpatient (IN) | payer OTHER ==
[2023-02-06 12:44] LABS: Hemoglobin 13.1 g/dL (14.0-18.0); Mean Corpuscular HGB CONC 34.1 g/dL (32.0-36.0); Mean Corpuscular Hemoglobin 33.3 pg (27.0-31.0); Mean Corpuscular Volume 97.5 fl (78.0-98.0); Mean Platelet Volume 7.8 fL (7.4-10.4); Platelet Count 207 10x3/uL (130-400); RBC Distribution Width 11.8 % (11.5-14.5); Red Blood Cell (RBC) Count 3.92 mill/uL (4.70-6.10); White Blood Cell (WBC) Count 4.8 10x3/uL (4.8-10.8)
[2023-02-06 13:05] LABS: ALT (SGPT) 76 U/L (8-55); AST (SGOT) 51 U/L (5-34); Albumin 3.8 g/dL (3.5-5.0); Alkaline Phosphatase 51 U/L (40-110); Anion Gap 14 mmol/L (10-20); BUN (Urea Nitrogen) 14 mg/dL (8.4-25.7); Bilirubin, Total 0.6 mg/dL (0.2-1.2); Calc. Creatinine Clearance 0 mL/min (70-130); Calcium 9.1 mg/dL (7.8-10.44); Carbon Dioxide 24 mmol/L (22-29); Chloride 107 mmol/L (98-107); Estimated GFR 67; Globulin 3.9 g/dL (2.4-3.5); Glucose 180 mg/dL (70-105); Potassium 3.7 mmol/L (3.5-5.1); Protein, Total 7.7 g/dL (6.0-8.3); Sodium 141 mmol/L (136-145)
[2023-02-06 13:14] LABS: Eosinophils 4 % (0-10); Lymphocytes 37 % (21-51); MDiff Complete? YES; Monocytes 13 % (0-10); Neutrophil 43 % (42-75); Platelet Morphology Comment Appears Adequate; RBC Morphology Normal
[2023-02-06] MEDS ORDERED: Furosemide 40 MG/4 ML VIAL ONE (14:15)
[2023-02-06] MEDS ORDERED: Ketorolac Tromethamine 30 MG/ML VIAL ONE (14:18)
[2023-02-06] MEDS ORDERED: Acetaminophen 500 MG TAB ONE (14:29)
[2023-02-06] MEDS ORDERED: Acetaminophen 325 MG TAB PO PRN ×2 (15:10→16:15)
[2023-02-06] MEDS ORDERED: Furosemide 20 MG/2 ML VIAL SLOW IVP SCH ×3 (15:15→17:00)
[2023-02-06 16:02] LABS: Magnesium 1.8 mg/dL (1.6-2.6)
[2023-02-06] MEDS ORDERED: Ondansetron PF 4 MG/2 ML Vial IVP PRN (16:15)
[2023-02-06] MEDS ORDERED: Ondansetron ODT 4 MG TAB SL PRN (16:15)
[2023-02-06] MEDS ORDERED: Magnesium 2 GM/50 ML(in water) 2 GM in Premix Bag 1 BAG IVPB SCH (16:15)
[2023-02-06] MEDS ORDERED: Empagliflozin 10 MG TAB PO SCH (16:45)
[2023-02-06] MEDS: Ipratropium Bromide 2.5 ml Neb NEB SCH (18:30)
[2023-02-06] MEDS: Mometasone 100 MCG/Formoterol 5 MCG 120 PUFF INHALER INH SCH (18:34)
[2023-02-06] MEDS: Isosorbide Dinitrate 20 MG TAB PO SCH (20:28)
[2023-02-06] MEDS: Carvedilol 25 MG TAB PO SCH (20:28)
[2023-02-06] MEDS: Sacubitril 49 MG/Valsartan 51 MG TABLET PO SCH (20:28)
[2023-02-06] MEDS: Gabapentin 100 MG CAP PO SCH (20:29)
[2023-02-06] MEDS: Acetaminophen 325 MG TAB PO PRN (20:38)
[2023-02-06] MEDS ORDERED: hydrALAZINE 25 MG TAB PO SCH (21:00)
[2023-02-07] MEDS: Ipratropium Bromide 2.5 ml Neb NEB SCH ×4 (00:21→18:57)
[2023-02-07] MEDS: Acetaminophen 325 MG TAB PO PRN ×2 (02:41→20:27)
[2023-02-07] MEDS: Furosemide 40 MG/4 ML VIAL SLOW IVP SCH ×2 (05:21→14:13)
[2023-02-07] MEDS ORDERED: Furosemide 40 MG/4 ML VIAL SLOW IVP SCH ×5 (06:00→17:00)
[2023-02-07] MEDS: Mometasone 100 MCG/Formoterol 5 MCG 120 PUFF INHALER INH SCH ×2 (06:45→18:58)
[2023-02-07] MEDS: Spironolactone 25 MG TAB PO SCH ×2 (08:21→08:22)
[2023-02-07] MEDS: Carvedilol 25 MG TAB PO SCH (08:22)
[2023-02-07] MEDS: Empagliflozin 10 MG TAB PO SCH (08:22)
[2023-02-07] MEDS: Sacubitril 49 MG/Valsartan 51 MG TABLET PO SCH ×2 (08:22→20:27)
[2023-02-07] MEDS: Aspirin Chewable 81 MG TAB PO SCH (08:22)
[2023-02-07] MEDS: Isosorbide Dinitrate 20 MG TAB PO SCH ×3 (08:22→20:27)
[2023-02-07] MEDS: Lidocaine 4% Patch TD SCH (08:23)
[2023-02-07] MEDS: Atorvastatin Calcium 40 MG TAB PO SCH (08:23)
[2023-02-07] MEDS: Gabapentin 100 MG CAP PO SCH (08:23)
[2023-02-07] MEDS: Multivit, Therapeutic 1 TAB PO SCH (08:24)
[2023-02-07] MEDS ORDERED: Potassium Chloride 20 MEQ TAB PO SCH ×2 (09:00→09:45)
[2023-02-07] MEDS ORDERED: Empagliflozin 10 MG TAB PO SCH (09:00)
[2023-02-07 09:20] LABS: Anion Gap 11 mmol/L (10-20); BUN (Urea Nitrogen) 16 mg/dL (8.4-25.7); Calc. Creatinine Clearance 109 mL/min (70-130); Calcium 9.3 mg/dL (7.8-10.44); Carbon Dioxide 29 mmol/L (22-29); Chloride 104 mmol/L (98-107); Estimated GFR 63; Glucose 112 mg/dL (70-105); Magnesium 2.2 mg/dL (1.6-2.6); Potassium 3.3 mmol/L (3.5-5.1); Sodium 141 mmol/L (136-145)
[2023-02-07] MEDS ORDERED: Furosemide 100 MG/10 ML VIAL FS SCH (10:45)
[2023-02-07 16:32] LABS: Anion Gap 16 mmol/L (10-20); BUN (Urea Nitrogen) 17 mg/dL (8.4-25.7); Calc. Creatinine Clearance 101 mL/min (70-130); Calcium 9.4 mg/dL (7.8-10.44); Carbon Dioxide 25 mmol/L (22-29); Chloride 103 mmol/L (98-107); Estimated GFR 58; Glucose 136 mg/dL (70-105); Magnesium 2.3 mg/dL (1.6-2.6); Potassium 3.6 mmol/L (3.5-5.1); Sodium 140 mmol/L (136-145)
[2023-02-07 17:13] LABS: INR-International Normal Ratio 1.1; PTT 31.3 sec (22.9-36.1); Prothrombin Time 14.8 sec (12.0-14.7)
[2023-02-07] MEDS: Transdermal Patch Removal TOP SCH (20:32)
[2023-02-07] MEDS ORDERED: Gabapentin 300 MG CAP PO SCH (21:00)
[2023-02-08] MEDS: Ipratropium Bromide 2.5 ml Neb NEB SCH ×4 (00:38→19:08)
[2023-02-08 05:57] LABS: Anion Gap 14 mmol/L (10-20); BUN (Urea Nitrogen) 20 mg/dL (8.4-25.7); Calc. Creatinine Clearance 101 mL/min (70-130); Calcium 8.9 mg/dL (7.8-10.44); Carbon Dioxide 24 mmol/L (22-29); Chloride 104 mmol/L (98-107); Estimated GFR 59; Glucose 121 mg/dL (70-105); Magnesium 2.2 mg/dL (1.6-2.6); Potassium 3.5 mmol/L (3.5-5.1); Sodium 138 mmol/L (136-145)
[2023-02-08] MEDS: Mometasone 100 MCG/Formoterol 5 MCG 120 PUFF INHALER INH SCH ×2 (07:38→19:09)
[2023-02-08] MEDS ORDERED: Furosemide 20 MG/2 ML VIAL SLOW IVP SCH (08:00)
[2023-02-08] MEDS: Sacubitril 49 MG/Valsartan 51 MG TABLET PO SCH ×2 (09:31→20:20)
[2023-02-08] MEDS: Atorvastatin Calcium 40 MG TAB PO SCH (09:32)
[2023-02-08] MEDS: Empagliflozin 10 MG TAB PO SCH (09:32)
[2023-02-08] MEDS: Multivit, Therapeutic 1 TAB PO SCH (09:32)
[2023-02-08] MEDS: Potassium Chloride 20 MEQ TAB PO SCH (09:32)
[2023-02-08] MEDS: Gabapentin 300 MG CAP PO SCH ×3 (09:33→20:20)
[2023-02-08] MEDS: Aspirin Chewable 81 MG TAB PO SCH (09:34)
[2023-02-08] MEDS: Lidocaine 4% Patch TD SCH (09:34)
[2023-02-08] MEDS: Isosorbide Dinitrate 20 MG TAB PO SCH ×3 (09:37→20:20)
[2023-02-08] MEDS: Acetaminophen 325 MG TAB PO PRN ×2 (09:38→20:19)
[2023-02-08] MEDS: Furosemide 40 MG/4 ML VIAL SLOW IVP SCH ×2 (14:00→14:05)
[2023-02-08] MEDS: Furosemide 20 MG/2 ML VIAL SLOW IVP SCH (14:28)
[2023-02-08] MEDS: Carvedilol 25 MG TAB PO SCH (20:20)
[2023-02-08] MEDS: Transdermal Patch Removal TOP SCH (20:21)
[2023-02-09] MEDS: Ipratropium Bromide 2.5 ml Neb NEB SCH ×4 (01:14→19:04)
[2023-02-09] MEDS: Acetaminophen 325 MG TAB PO PRN (01:59)
[2023-02-09] MEDS: Gabapentin 300 MG CAP PO SCH ×3 (05:24→20:08)
[2023-02-09 05:53] LABS: Band 2 % (5-11); Eosinophils 1 % (0-10); Hemoglobin 13.2 g/dL (14.0-18.0); Hypochromia SLIGHT = 6-15 cells (100X) (0-5/hpf); Lymphocytes 27 % (21-51); MDiff Complete? YES; Mean Corpuscular Hemoglobin 35.1 pg (27.0-31.0); Mean Corpuscular Volume 97.7 fl (78.0-98.0); Mean Platelet Volume 7.9 fL (7.4-10.4); Monocytes 17 % (0-10); Neutrophil 52 % (42-75); Platelet Count 196 10x3/uL (130-400); Platelet Morphology Comment Appears Adequate; RBC Distribution Width 11.8 % (11.5-14.5); Reactive Lymphocytes 1 % (0-10); Red Blood Cell (RBC) Count 3.76 mill/uL (4.70-6.10); White Blood Cell (WBC) Count 4.7 10x3/uL (4.8-10.8)
[2023-02-09 06:14] LABS: Anion Gap 13 mmol/L (10-20); BUN (Urea Nitrogen) 23 mg/dL (8.4-25.7); Calc. Creatinine Clearance 102 mL/min (70-130); Calcium 8.8 mg/dL (7.8-10.44); Carbon Dioxide 24 mmol/L (22-29); Chloride 105 mmol/L (98-107); Estimated GFR 59; Glucose 113 mg/dL (70-105); Magnesium 2.1 mg/dL (1.6-2.6); Potassium 3.7 mmol/L (3.5-5.1); Sodium 138 mmol/L (136-145)
[2023-02-09] MEDS: Mometasone 100 MCG/Formoterol 5 MCG 120 PUFF INHALER INH SCH ×2 (07:38→19:05)
[2023-02-09] MEDS ORDERED: predniSONE 20 MG TAB PO SCH (08:00)
[2023-02-09] MEDS ORDERED: Diclofenac 1% 100 GM GEL TP PRN (08:01)
[2023-02-09] MEDS: Furosemide 20 MG/2 ML VIAL SLOW IVP SCH (08:08)
[2023-02-09] MEDS: Sacubitril 49 MG/Valsartan 51 MG TABLET PO SCH ×2 (09:16→20:08)
[2023-02-09] MEDS: Isosorbide Dinitrate 20 MG TAB PO SCH ×3 (09:16→20:08)
[2023-02-09] MEDS: Lidocaine 4% Patch TD SCH (09:16)
[2023-02-09] MEDS: Furosemide 40 MG TAB PO SCH ×2 (09:17→13:28)
[2023-02-09] MEDS: Atorvastatin Calcium 40 MG TAB PO SCH (09:17)
[2023-02-09] MEDS: Multivit, Therapeutic 1 TAB PO SCH (09:17)
[2023-02-09] MEDS: Empagliflozin 10 MG TAB PO SCH (09:17)
[2023-02-09] MEDS: Potassium Chloride 20 MEQ TAB PO SCH (09:17)
[2023-02-09] MEDS: Aspirin Chewable 81 MG TAB PO SCH (09:17)
[2023-02-09] MEDS: Spironolactone 25 MG TAB PO SCH (09:17)
[2023-02-09] MEDS: Acetaminophen 325 MG TAB PO SCH ×2 (13:28→20:08)
[2023-02-09] MEDS: Transdermal Patch Removal TOP SCH (20:11)
[2023-02-10] MEDS: Acetaminophen 325 MG TAB PO SCH ×3 (00:47→12:00)
[2023-02-10] MEDS: Ipratropium Bromide 2.5 ml Neb NEB SCH ×2 (01:50→08:57)
[2023-02-10 05:22] VITALS: BMI 41.6
[2023-02-10 07:11] LABS: ALT (SGPT) 75 U/L (8-55); AST (SGOT) 44 U/L (5-34); Albumin 3.9 g/dL (3.5-5.0); Alkaline Phosphatase 46 U/L (40-110); Anion Gap 15 mmol/L (10-20); BUN (Urea Nitrogen) 22 mg/dL (8.4-25.7); Bilirubin, Total 0.8 mg/dL (0.2-1.2); Calc. Creatinine Clearance 112 mL/min (70-130); Calcium 9.2 mg/dL (7.8-10.44); Carbon Dioxide 20 mmol/L (22-29); Chloride 108 mmol/L (98-107); Estimated GFR 65; Globulin 4.2 g/dL (2.4-3.5); Glucose 116 mg/dL (70-105); Potassium 3.7 mmol/L (3.5-5.1); Protein, Total 8.1 g/dL (6.0-8.3); Sodium 139 mmol/L (136-145)
[2023-02-10] MEDS ORDERED: Carvedilol 25 MG TAB PO SCH ×2 (08:15→17:00)
[2023-02-10] MEDS: Potassium Chloride 20 MEQ TAB PO SCH (08:56)
[2023-02-10] MEDS: Isosorbide Dinitrate 20 MG TAB PO SCH ×2 (08:56→14:32)
[2023-02-10] MEDS: Spironolactone 25 MG TAB PO SCH (08:56)
[2023-02-10] MEDS: Aspirin Chewable 81 MG TAB PO SCH (08:56)
[2023-02-10] MEDS: Multivit, Therapeutic 1 TAB PO SCH (08:57)
[2023-02-10] MEDS: Furosemide 40 MG TAB PO SCH ×2 (08:57→14:32)
[2023-02-10] MEDS: Atorvastatin Calcium 40 MG TAB PO SCH (08:57)
[2023-02-10] MEDS: Mometasone 100 MCG/Formoterol 5 MCG 120 PUFF INHALER INH SCH (08:57)
[2023-02-10] MEDS: Sacubitril 49 MG/Valsartan 51 MG TABLET PO SCH (08:57)
[2023-02-10] MEDS: Gabapentin 300 MG CAP PO SCH (08:57)
[2023-02-10] MEDS: Empagliflozin 10 MG TAB PO SCH (08:58)
[2023-02-10] MEDS: Lidocaine 4% Patch TD SCH (09:14)
[2023-02-10] MEDS ORDERED: Gabapentin 300 MG CAP PO SCH ×2 (10:30→21:00)
[2023-02-10] MEDS ORDERED: Ipratropium 200 Puff Oral Inhaler INH SCH (13:00)
[2023-02-10 15:38] VITALS: BP 116/68
[2023-02-10 16:53] VITALS: TEMP 98
== END 2023-02-10 16:58 | DRG 433 ==
LOC: EEVIPCON 11:58 → ERS 11:58 → 2SW 14:23 → ERS 15:43 → 2SW 15:43 → OBSVTOIN 02-07 14:13 → T4-A 02-09 19:00
PROVIDERS: ADMIT Family Medicine; ATTEND Student in an Organized Health Care Education/Training Program
DX: K74.60 Unspecified cirrhosis of liver (principal); I42.8 Other cardiomyopathies; I50.22 Chronic systolic (congestive) heart failure; Z68.41 Body mass index [BMI] 40.0-44.9, adult; E87.70 Fluid overload, unspecified; I25.10 Atherosclerotic heart disease of native coronary artery without angina pectoris; E83.42 Hypomagnesemia; G89.29 Other chronic pain; M54.50 Low back pain, unspecified; B19.20 Unspecified viral hepatitis C without hepatic coma; G62.9 Polyneuropathy, unspecified; J44.9 Chronic obstructive pulmonary disease, unspecified; I73.9 Peripheral vascular disease, unspecified; E66.9 Obesity, unspecified; I11.9 Hypertensive heart disease without heart failure; Z95.810 Presence of automatic (implantable) cardiac defibrillator; Z79.899 Other long term (current) drug therapy; Z79.82 Long term (current) use of aspirin; Z90.49 Acquired absence of other specified parts of digestive tract; Z82.3 Family history of stroke; Z82.49 Family history of ischemic heart disease and other diseases of the circulatory system; Z87.891 Personal history of nicotine dependence
CPT/HCPCS: 36415; 71045; 76705; 80048; 80053; 83735; 83880; 84484; 85025; 85610; 85730; 93005; 93306; 94640; 94664; 96372; 96374; 96375; 96376; G0378; J1650; J1885; J1940; J3475; J7512

== ENCOUNTER 2023-02-11 00:36 | Observation (INO) | payer OTHER ==
[2023-02-11 01:07] LABS: Hemoglobin 13.4 g/dL (14.0-18.0); Mean Corpuscular HGB CONC 34.7 g/dL (32.0-36.0); Mean Corpuscular Hemoglobin 34.1 pg (27.0-31.0); Mean Corpuscular Volume 98.2 fl (78.0-98.0); Mean Platelet Volume 7.7 fL (7.4-10.4); Platelet Count 205 10x3/uL (130-400); RBC Distribution Width 11.7 % (11.5-14.5); Red Blood Cell (RBC) Count 3.94 mill/uL (4.70-6.10)
[2023-02-11 01:17] LABS: INR-International Normal Ratio 1.1; Prothrombin Time 14.1 sec (12.0-14.7)
[2023-02-11 01:18] LABS: PTT 28.4 sec (22.9-36.1)
[2023-02-11 01:27] LABS: ALT (SGPT) 74 U/L (8-55); AST (SGOT) 50 U/L (5-34); Albumin 3.9 g/dL (3.5-5.0); Alkaline Phosphatase 46 U/L (40-110); Anion Gap 15 mmol/L (10-20); BUN (Urea Nitrogen) 23 mg/dL (8.4-25.7); Bilirubin, Total 0.7 mg/dL (0.2-1.2); Calc. Creatinine Clearance 0 mL/min (70-130); Calcium 9.2 mg/dL (7.8-10.44); Carbon Dioxide 23 mmol/L (22-29); Chloride 108 mmol/L (98-107); Estimated GFR 48; Globulin 4.2 g/dL (2.4-3.5); Glucose 151 mg/dL (70-105); Lipase 20 U/L (8-78); Potassium 4.6 mmol/L (3.5-5.1); Protein, Total 8.1 g/dL (6.0-8.3); Sodium 141 mmol/L (136-145)
[2023-02-11 01:46] LABS: Band 4 % (5-11); Eosinophils 3 % (0-10); Hypochromia SLIGHT = 6-15 cells (100X) (0-5/hpf); Lymphocytes 30 % (21-51); MDiff Complete? YES; Monocytes 9 % (0-10); Neutrophil 53 % (42-75); Platelet Morphology Comment Appears Adequate; Reactive Lymphocytes 1 % (0-10)
[2023-02-11] MEDS ORDERED: Mag-Al 1200 mg/1200 mg/30 ML UDCUP ONE (02:28)
[2023-02-11] MEDS ORDERED: Nitroglycerin 2% Ointment 1 INCH/1 GM Packet ONE (02:28)
[2023-02-11] MEDS ORDERED: Lidocaine Viscous Sol 2% 15 ml UD Cup ONE (02:28)
[2023-02-11] MEDS ORDERED: Ondansetron ODT 4 MG TAB PO PRN (03:24)
[2023-02-11] MEDS ORDERED: Calcium Carbonate 500 MG ChewTAB PO PRN (03:24)
[2023-02-11] MEDS ORDERED: Senokot S 8.6-50 MG TAB PO PRN (03:24)
[2023-02-11] MEDS ORDERED: Nitroglycerin 0.4 MG TAB (25 Tab Bottle) SL PRN (03:24)
[2023-02-11] MEDS ORDERED: Diclofenac 1% 100 GM GEL TP PRN (03:39)
[2023-02-11] MEDS ORDERED: Acetaminophen 500 MG TAB PO SCH (04:15)
[2023-02-11 05:22] LABS: Hemoglobin A1c 5.3 % (4.0-6.0)
[2023-02-11 05:29] LABS: Phosphorus 3.6 mg/dL (2.3-4.7)
[2023-02-11 05:30] LABS: Magnesium 2.3 mg/dL (1.6-2.6)
[2023-02-11 05:31] LABS: Acetaminophen Less than 10.0 mcg/mL (10.0-30.0); Alcohol Less than 10 mg/dL (Less than 10); Cardiac Risk 3.1 (Less than 4.5); Salicylate Less than 8.0 mg/dL (15.0-30.0)
[2023-02-11 05:36] LABS: Troponin I 0.022 ng/mL (< 0.028)
[2023-02-11 06:13] VITALS: BMI 40.8
[2023-02-11] MEDS: Ipratropium/Albuterol 3 ML NEB NEB SCH ×3 (07:54→18:46)
[2023-02-11 08:31] LABS: Troponin I 0.022 ng/mL (< 0.028)
[2023-02-11] MEDS ORDERED: Regadenoson 0.4 MG/5 ML SYRINGE ONE (08:35)
[2023-02-11] MEDS ORDERED: Furosemide 40 MG TAB PO SCH (09:00)
[2023-02-11] MEDS: Lidocaine 4% Patch TD SCH (10:00)
[2023-02-11] MEDS: Sacubitril 49 MG/Valsartan 51 MG TABLET PO SCH ×2 (10:00→19:55)
[2023-02-11] MEDS: Gabapentin 300 MG CAP PO SCH ×2 (10:01→19:55)
[2023-02-11] MEDS: Empagliflozin 10 MG TAB PO SCH (10:01)
[2023-02-11] MEDS: Spironolactone 25 MG TAB PO SCH (10:02)
[2023-02-11] MEDS: Atorvastatin Calcium 40 MG TAB PO SCH (10:02)
[2023-02-11] MEDS: Isosorbide Dinitrate 20 MG TAB PO SCH ×3 (10:02→19:57)
[2023-02-11] MEDS: Aspirin Chewable 81 MG TAB PO SCH (10:02)
[2023-02-11] MEDS: Potassium Bicarbonate/Cit Ac 20 MEQ TAB PO SCH (10:03)
[2023-02-11] MEDS: MULTIVIT/IRON SULF/FOLIC ACID 1 EACH TAB PO SCH (10:03)
[2023-02-11] MEDS: Mometasone 100 MCG HFA INHALER (RT USE) INH SCH ×2 (12:07→18:46)
[2023-02-11 12:23] LABS: Bacteria/HPF None Seen HPF (None Seen); RBC/HPF 0-3 HPF (0-3); Squamous Epithelial 0-3 HPF (0-3); WBC/HPF 0-3 HPF (0-3)
[2023-02-11 12:53] LABS: Amphetamine Not Detected (NotDetected); Barbiturates Screen Not Detected (NotDetected); Benzodiazepine Screen Not Detected (NotDetected); Cocaine Metabolite Screen Not Detected (NotDetected); Methadone Not Detected (NotDetected); Methamphetamine Not Detected (NotDetected); Opiate Screen Not Detected (NotDetected); Oxycodone Screen Not Detected (NotDetected); Phencyclidine (PCP) Not Detected (NotDetected); THC/Cannabinoid Screen Not Detected (NotDetected); Tricyclic Screen Not Detected (NotDetected)
[2023-02-11 14:52] LABS: Anion Gap 13 mmol/L (10-20); BUN (Urea Nitrogen) 19 mg/dL (8.4-25.7); Calc. Creatinine Clearance 106 mL/min (70-130); Calcium 8.6 mg/dL (7.8-10.44); Carbon Dioxide 24 mmol/L (22-29); Chloride 110 mmol/L (98-107); Estimated GFR 62; Glucose 109 mg/dL (70-105); Potassium 4.5 mmol/L (3.5-5.1); Sodium 142 mmol/L (136-145)
[2023-02-11] MEDS: Acetaminophen 325 MG TAB PO PRN (19:58)
[2023-02-11] MEDS ORDERED: Transdermal Patch Removal TOP SCH (21:00)
[2023-02-12] MEDS: Ipratropium/Albuterol 3 ML NEB NEB SCH ×2 (00:02→07:06)
[2023-02-12] MEDS: Acetaminophen 325 MG TAB PO PRN (03:19)
[2023-02-12 06:44] LABS: Anion Gap 12 mmol/L (10-20); BUN (Urea Nitrogen) 21 mg/dL (8.4-25.7); Calc. Creatinine Clearance 113 mL/min (70-130); Calcium 8.7 mg/dL (7.8-10.44); Carbon Dioxide 23 mmol/L (22-29); Chloride 107 mmol/L (98-107); Estimated GFR 67; Glucose 131 mg/dL (70-105); Potassium 3.9 mmol/L (3.5-5.1); Sodium 138 mmol/L (136-145)
[2023-02-12] MEDS: Mometasone 100 MCG HFA INHALER (RT USE) INH SCH (07:06)
[2023-02-12 08:42] VITALS: BP 139/75; TEMP 98.4
[2023-02-12] MEDS ORDERED: Furosemide 40 MG TAB PO SCH (10:00)
[2023-02-12] MEDS: Lidocaine 4% Patch TD SCH (10:10)
[2023-02-12] MEDS: Isosorbide Dinitrate 20 MG TAB PO SCH (10:11)
[2023-02-12] MEDS: Gabapentin 300 MG CAP PO SCH (10:11)
[2023-02-12] MEDS: MULTIVIT/IRON SULF/FOLIC ACID 1 EACH TAB PO SCH (10:11)
[2023-02-12] MEDS: Sacubitril 49 MG/Valsartan 51 MG TABLET PO SCH (10:12)
[2023-02-12] MEDS: Empagliflozin 10 MG TAB PO SCH (10:12)
[2023-02-12] MEDS: Potassium Bicarbonate/Cit Ac 20 MEQ TAB PO SCH (10:12)
[2023-02-12] MEDS: Atorvastatin Calcium 40 MG TAB PO SCH (10:12)
[2023-02-12] MEDS: Spironolactone 25 MG TAB PO SCH (10:12)
[2023-02-12] MEDS: Aspirin Chewable 81 MG TAB PO SCH (10:12)
== END 2023-02-12 11:20 ==
LOC: ERS 00:36 → EEVIPCON 02:01 → 2SW 02:01 → 2SE 05:59 → 2SW 06:01
PROVIDERS: ADMIT Family Medicine; ATTEND Family Medicine
DX: R07.9 Chest pain, unspecified (principal); I13.0 Hypertensive heart and chronic kidney disease with heart failure and stage 1 through stage 4 chronic kidney disease, or unspecified chronic kidney disease; N18.9 Chronic kidney disease, unspecified; I50.20 Unspecified systolic (congestive) heart failure; N17.9 Acute kidney failure, unspecified; E87.70 Fluid overload, unspecified; K74.60 Unspecified cirrhosis of liver; B19.20 Unspecified viral hepatitis C without hepatic coma; G89.29 Other chronic pain; M54.50 Low back pain, unspecified; G62.9 Polyneuropathy, unspecified; R94.31 Abnormal electrocardiogram [ECG] [EKG]; J44.9 Chronic obstructive pulmonary disease, unspecified; I73.9 Peripheral vascular disease, unspecified; I25.10 Atherosclerotic heart disease of native coronary artery without angina pectoris; E66.9 Obesity, unspecified; Z68.41 Body mass index [BMI] 40.0-44.9, adult; Z87.891 Personal history of nicotine dependence; Z79.82 Long term (current) use of aspirin; Z79.899 Other long term (current) drug therapy; Z95.0 Presence of cardiac pacemaker
CPT/HCPCS: 36415; 71045; 78452; 80048; 80053; 80061; 80306; 80307; 81015; 83036; 83690; 83735; 83880; 84100; 84439; 84443; 84480; 84484; 85025; 85610; 85730; 93005; 93017; 94640; 94760; 96372; A9500; G0378; J1650; J2785; J7620

== ENCOUNTER 2023-02-20 20:20 | Emergency (ER) | payer OTHER ==
[2023-02-20 21:44] LABS: ALT (SGPT) 72 U/L (8-55); AST (SGOT) 45 U/L (5-34); Albumin 3.7 g/dL (3.5-5.0); Alkaline Phosphatase 45 U/L (40-110); Anion Gap 12 mmol/L (10-20); BUN (Urea Nitrogen) 12 mg/dL (8.4-25.7); Bilirubin, Total 0.6 mg/dL (0.2-1.2); Calc. Creatinine Clearance 0 mL/min (70-130); Calcium 9.5 mg/dL (7.8-10.44); Carbon Dioxide 25 mmol/L (22-29); Chloride 107 mmol/L (98-107); Estimated GFR 63; Globulin 3.8 g/dL (2.4-3.5); Glucose 112 mg/dL (70-105); Lipase 8 U/L (8-78); Potassium 3.4 mmol/L (3.5-5.1); Protein, Total 7.5 g/dL (6.0-8.3); Sodium 141 mmol/L (136-145)
[2023-02-20 21:45] LABS: #Basophils 0.1 thou/uL (0.0-0.2); #Eosinphils 0.2 thou/uL (0.0-0.7); #Monocytes 0.9 thou/uL (0.11-0.59); #Neutrophils 2.3 thou/uL (1.40-6.50); %Basophils 1.4 % (0.0-1.0); %Lymphocytes 29.6 % (21.0-51.0); %Monocytes 18.9 % (0.0-10.0); %Neutrophils 46.7 % (42.0-75.0); Hemoglobin 12.2 g/dL (14.0-18.0); Mean Corpuscular HGB CONC 33.1 g/dL (32.0-36.0); Mean Corpuscular Hemoglobin 31.7 pg (27.0-31.0); Mean Corpuscular Volume 95.8 fl (78.0-98.0); Platelet Count 235 10x3/uL (130-400); RBC Distribution Width 12.2 % (11.5-14.5); Red Blood Cell (RBC) Count 3.85 mill/uL (4.70-6.10)
[2023-02-20] MEDS ORDERED: Aspirin 325 MG TAB ONE (21:53)
[2023-02-20] MEDS ORDERED: HYDROcodone/Acetaminophen 5/325 mg Tablet ONE (21:53)
[2023-02-20] MEDS ORDERED: Furosemide 100 MG/10 ML VIAL ONE (22:40)
[2023-02-21] MEDS ORDERED: Iopamidol-370 76% 500 ML MDV (1 ML CHARGE) ONE (10:59)
== END 2023-02-21 01:43 ==
LOC: ERS 20:20
DX: R10.30 Lower abdominal pain, unspecified (principal); R60.0 Localized edema; I11.0 Hypertensive heart disease with heart failure; I50.9 Heart failure, unspecified; Z95.0 Presence of cardiac pacemaker
CPT/HCPCS: 71045; 74177; 80053; 83690; 83880; 84484; 85025; 93005; 96374; J1940

== ENCOUNTER 2023-08-15 09:05 | Outpatient (CLI) | payer OTHER | END 2023-08-15 09:06 | disposition home or self-care (01) | LOC: CT 09:05 | PROVIDERS: ATTEND Internal Medicine Gastroenterology | DX: K74.60 Unspecified cirrhosis of liver (principal); R16.0 Hepatomegaly, not elsewhere classified; B18.2 Chronic viral hepatitis C; E27.9 Disorder of adrenal gland, unspecified; K76.0 Fatty (change of) liver, not elsewhere classified | CPT/HCPCS: 74170 ==

== ENCOUNTER 2024-01-01 22:38 | Emergency (ER) | payer OTHER ==
[2024-01-01 23:37] LABS: #Basophils 0.1 thou/uL (0.0-0.2); #Eosinphils 0.1 thou/uL (0.0-0.7); #Monocytes 1.1 thou/uL (0.11-0.59); #Neutrophils 5.7 thou/uL (1.40-6.50); %Basophils 0.7 % (0.0-1.0); %Eosinophils 1.3 % (0.0-10.0); %Lymphocytes 21.3 % (21.0-51.0); %Monocytes 12.1 % (0.0-10.0); %Neutrophils 64.3 % (42.0-75.0); Hematocrit 37.9 % (42.0-52.0); Hemoglobin 12.7 g/dL (14.0-18.0); Mean Corpuscular HGB CONC 33.5 g/dL (32.0-36.0); Mean Corpuscular Hemoglobin 31.1 pg (27.0-31.0); Mean Corpuscular Volume 92.7 fl (78.0-98.0); Mean Platelet Volume 9.6 fL (7.4-10.4); Platelet Count 262 10x3/uL (130-400); RBC Distribution Width 12.3 % (11.5-14.5); Red Blood Cell (RBC) Count 4.09 mill/uL (4.70-6.10); White Blood Cell (WBC) Count 8.9 10x3/uL (4.8-10.8)
[2024-01-01 23:54] LABS: ALT (SGPT) 52 U/L (8-55); AST (SGOT) 32 U/L (5-34); Albumin 3.8 g/dL (3.4-4.8); Alkaline Phosphatase 59 U/L (40-110); Anion Gap 14 mmol/L (10-20); BUN (Urea Nitrogen) 15 mg/dL (8.4-25.7); Bilirubin, Total 0.7 mg/dL (0.2-1.2); Calc. Creatinine Clearance 0 mL/min (70-130); Calcium 9.4 mg/dL (7.8-10.44); Carbon Dioxide 22 mmol/L (23-31); Chloride 105 mmol/L (98-107); Estimated GFR 71; Globulin 4.2 g/dL (2.4-3.5); Glucose 207 mg/dL (80-115); Potassium 3.8 mmol/L (3.5-5.1); Sodium 137 mmol/L (136-145)
[2024-01-01 23:58] LABS: Troponin I 0.014 ng/mL (< 0.028)
[2024-01-02] MEDS ORDERED: fentaNYL 50 mcg/mL 1 mL Vial ONE (01:03)
[2024-01-02] MEDS ORDERED: Ondansetron PF 4 MG/2 ML Vial ONE (01:03)
[2024-01-02] MEDS ORDERED: Aspirin Chewable 81 MG TAB ONE (01:03)
[2024-01-02 02:50] LABS: Troponin I 0.016 ng/mL (< 0.028)
[2024-01-02] MEDS ORDERED: Morphine 4 MG/ML VIAL ONE (03:05)
== END 2024-01-02 03:20 ==
LOC: ERS 22:38
DX: R07.89 Other chest pain (principal); M79.674 Pain in right toe(s); I25.10 Atherosclerotic heart disease of native coronary artery without angina pectoris; I11.0 Hypertensive heart disease with heart failure; I50.9 Heart failure, unspecified; J44.9 Chronic obstructive pulmonary disease, unspecified; I49.3 Ventricular premature depolarization; E66.9 Obesity, unspecified
CPT/HCPCS: 36415; 71045; 80053; 83605; 83880; 84484; 85025; 86140; 87040; 93005; 94760; 96374; 96375; J2270; J2405; J3010

== ENCOUNTER 2024-01-10 21:58 | Emergency (ER) | payer OTHER ==
[~2024-01-10 21:58] MED LIST changes: -Iopamidol-370 76% 500 ML 1 ML ONE; +Iopamidol-370 76% 500 ML MDV (1 ML CHARGE) ONE
[2024-01-10 23:05] LABS: #Basophils 0.05 10x3/uL (0.0-0.2); %Basophils 0.6 % (0.0-1.0); %Eosinophils 1.6 % (0.0-10.0); %Lymphocytes 21.9 % (21.0-51.0); %Monocytes 10.3 % (0.0-10.0); %Neutrophils 65.3 % (42.0-75.0); Hematocrit 39.1 % (42.0-52.0); Hemoglobin 13.1 g/dL (14.0-18.0); Mean Corpuscular HGB CONC 33.5 g/dL (32.0-36.0); Mean Corpuscular Volume 92.7 fL (78.0-98.0); Mean Platelet Volume 9.6 fL (7.4-10.4); Platelet Count 264 10x3/uL (130-400); RBC Distribution Width 12.6 % (11.5-14.5); Red Blood Cell (RBC) Count 4.22 mill/uL (4.70-6.10)
[2024-01-10] MEDS ORDERED: Acetaminophen 500 MG TAB ONE (23:07)
[2024-01-10] MEDS ORDERED: Ketorolac Tromethamine 30 MG (1 mL) VIAL ONE (23:07)
[2024-01-10 23:23] LABS: ALT (SGPT) 46 U/L (8-55); AST (SGOT) 32 U/L (5-34); Albumin 3.8 g/dL (3.4-4.8); Alkaline Phosphatase 53 U/L (40-110); Anion Gap 15 mmol/L (10-20); BUN (Urea Nitrogen) 16 mg/dL (8.4-25.7); Bilirubin, Total 0.7 mg/dL (0.2-1.2); Calc. Creatinine Clearance 0 mL/min (70-130); Calcium 9.7 mg/dL (7.8-10.44); Carbon Dioxide 25 mmol/L (23-31); Chloride 101 mmol/L (98-107); Estimated GFR 74; Globulin 4.4 g/dL (2.4-3.5); Glucose 189 mg/dL (80-115); Potassium 3.8 mmol/L (3.5-5.1); Protein, Total 8.2 g/dL (5.8-8.1); Sodium 137 mmol/L (136-145)
[2024-01-10 23:26] LABS: Troponin I Less than 0.010 ng/mL (< 0.028)
[2024-01-11] MEDS ORDERED: Ketorolac Tromethamine 30 MG (1 mL) VIAL ONE (01:45)
== END 2024-01-11 02:20 ==
LOC: ERS 21:58
DX: I73.9 Peripheral vascular disease, unspecified (principal); R07.9 Chest pain, unspecified; R73.9 Hyperglycemia, unspecified; I70.8 Atherosclerosis of other arteries; I11.0 Hypertensive heart disease with heart failure; I50.9 Heart failure, unspecified; J44.9 Chronic obstructive pulmonary disease, unspecified; G89.29 Other chronic pain; M54.9 Dorsalgia, unspecified; Z95.0 Presence of cardiac pacemaker
CPT/HCPCS: 36415; 71275; 74174; 80053; 83880; 84484; 85025; 93005; 96374; 96376; J1885; Q9967

== ENCOUNTER 2024-03-19 20:19 | Inpatient (IN) | payer OTHER ==
[2024-03-20] MEDS ORDERED: Acetaminophen 500 MG TAB ONE (00:35)
[2024-03-20 01:08] LABS: #Basophils 0.08 10x3/uL (0.0-0.2); %Eosinophils 3.2 % (0.0-10.0); %Lymphocytes 25.8 % (21.0-51.0); %Neutrophils 57.6 % (42.0-75.0); Hematocrit 35.1 % (42.0-52.0); Hemoglobin 11.6 g/dL (14.0-18.0); Mean Corpuscular Hemoglobin 31.3 pg (27.0-31.0); Mean Corpuscular Volume 94.6 fL (78.0-98.0); Mean Platelet Volume 9.2 fL (7.4-10.4); Platelet Count 330 10x3/uL (130-400); RBC Distribution Width 12.8 % (11.5-14.5); Red Blood Cell (RBC) Count 3.71 mill/uL (4.70-6.10)
[2024-03-20 01:26] LABS: ALT (SGPT) 34 U/L (8-55); AST (SGOT) 29 U/L (5-34); Albumin 3.6 g/dL (3.4-4.8); Alkaline Phosphatase 61 U/L (40-110); Anion Gap 15 mmol/L (10-20); BUN (Urea Nitrogen) 15 mg/dL (8.4-25.7); Bilirubin, Total 0.8 mg/dL (0.2-1.2); Calc. Creatinine Clearance 0 mL/min (70-130); Calcium 9.9 mg/dL (7.8-10.44); Carbon Dioxide 22 mmol/L (23-31); Chloride 104 mmol/L (98-107); Estimated GFR 67; Globulin 4.7 g/dL (2.4-3.5); Glucose 105 mg/dL (80-115); Potassium 3.7 mmol/L (3.5-5.1); Protein, Total 8.3 g/dL (5.8-8.1); Sodium 137 mmol/L (136-145)
[2024-03-20] MEDS ORDERED: Cefepime 2 GM VIAL ONE (03:05)
[2024-03-20] MEDS ORDERED: Sodium Chloride 0.9% 100 ML ONE (03:05)
[2024-03-20] MEDS ORDERED: Morphine 4 MG/ML VIAL ONE (03:05)
[2024-03-20] MEDS: Vancomycin (BATCH) 2.5 GM in Premix 1 BAG IVPB SCH (03:58)
[2024-03-20] MEDS ORDERED: Ondansetron ODT 4 MG TAB SL PRN (05:15)
[2024-03-20] MEDS ORDERED: Ondansetron PF 4 MG/2 ML Vial IVP PRN (05:15)
[2024-03-20 05:47] VITALS: BMI 39.5
[2024-03-20] MEDS: HYDROcodone/Acetaminophen 5/325 mg Tablet PO PRN (06:17)
[2024-03-20] MEDS: Gabapentin 300 MG CAP PO SCH (08:55)
[2024-03-20] MEDS: Spironolactone 25 MG TAB PO SCH (08:55)
[2024-03-20] MEDS: Atorvastatin Calcium 40 MG TAB PO SCH (08:56)
[2024-03-20] MEDS: Pantoprazole DR 40 MG TAB PO SCH (08:56)
[2024-03-20] MEDS: Furosemide 40 MG TAB PO SCH (08:57)
[2024-03-20] MEDS: Aspirin Chewable 81 MG TAB PO SCH (08:57)
[2024-03-20] MEDS: Isosorbide Dinitrate 20 MG TAB PO SCH (08:57)
[2024-03-20] MEDS: Sacubitril 49 MG/Valsartan 51 MG TABLET PO SCH (08:57)
[2024-03-20] MEDS ORDERED: VANCOMYCIN IVPB PRN (11:30)
[2024-03-20] MEDS: Acetaminophen 325 MG TAB PO PRN (12:50)
[2024-03-20] MEDS ORDERED: Iopamidol-370 76% 500 ML MDV (1 ML CHARGE) ONE (12:54)
[2024-03-20] MEDS: Heparin 5,000 UNITS/ML VIAL SC SCH (15:04)
[2024-03-20] MEDS: Vancomycin 1 GM in Premix 1 BAG IVPB SCH (17:03)
[2024-03-21 06:41] LABS: #Basophils 0.06 10x3/uL (0.0-0.2); %Basophils 1.2 % (0.0-1.0); %Eosinophils 5.4 % (0.0-10.0); %Lymphocytes 29.2 % (21.0-51.0); %Monocytes 14.2 % (0.0-10.0); %Neutrophils 49.6 % (42.0-75.0); Hematocrit 32.3 % (42.0-52.0); Hemoglobin 10.7 g/dL (14.0-18.0); Mean Corpuscular HGB CONC 33.1 g/dL (32.0-36.0); Mean Corpuscular Hemoglobin 31.9 pg (27.0-31.0); Mean Corpuscular Volume 96.4 fL (78.0-98.0); Mean Platelet Volume 9.4 fL (7.4-10.4); Platelet Count 292 10x3/uL (130-400); RBC Distribution Width 12.6 % (11.5-14.5); Red Blood Cell (RBC) Count 3.35 mill/uL (4.70-6.10)
[2024-03-21 06:50] LABS: Vancomycin, Random 32.5 ug/mL (See Comment)
[2024-03-21 06:53] LABS: Anion Gap 13 mmol/L (10-20); BUN (Urea Nitrogen) 13 mg/dL (8.4-25.7); Calc. Creatinine Clearance 135 mL/min (70-130); Calcium 9.4 mg/dL (7.8-10.44); Carbon Dioxide 24 mmol/L (23-31); Chloride 103 mmol/L (98-107); Estimated GFR 87; Glucose 119 mg/dL (80-115); Potassium 3.9 mmol/L (3.5-5.1); Sodium 136 mmol/L (136-145)
[2024-03-21] MEDS: Morphine 4 MG/ML VIAL SLOW IVP SCH (09:34)
[2024-03-21 11:52] VITALS: BMI 39.5
[2024-03-22 06:58] LABS: #Basophils 0.06 10x3/uL (0.0-0.2); %Basophils 1.1 % (0.0-1.0); %Eosinophils 5.6 % (0.0-10.0); %Lymphocytes 26.3 % (21.0-51.0); %Monocytes 12.5 % (0.0-10.0); %Neutrophils 54.1 % (42.0-75.0); Hematocrit 33.8 % (42.0-52.0); Hemoglobin 11.1 g/dL (14.0-18.0); Mean Corpuscular HGB CONC 32.8 g/dL (32.0-36.0); Mean Corpuscular Hemoglobin 31.6 pg (27.0-31.0); Mean Corpuscular Volume 96.3 fL (78.0-98.0); Mean Platelet Volume 9.2 fL (7.4-10.4); Platelet Count 303 10x3/uL (130-400); RBC Distribution Width 12.6 % (11.5-14.5); Red Blood Cell (RBC) Count 3.51 mill/uL (4.70-6.10)
[2024-03-22 07:10] LABS: Vancomycin, Random 42.7 ug/mL (See Comment)
[2024-03-22 07:11] LABS: Anion Gap 13 mmol/L (10-20); BUN (Urea Nitrogen) 14 mg/dL (8.4-25.7); Calc. Creatinine Clearance 139 mL/min (70-130); Calcium 9.4 mg/dL (7.8-10.44); Carbon Dioxide 24 mmol/L (23-31); Chloride 102 mmol/L (98-107); Estimated GFR 90; Glucose 138 mg/dL (80-115); Potassium 3.7 mmol/L (3.5-5.1); Sodium 135 mmol/L (136-145)
[2024-03-22 07:12] LABS: CRP,High Sensitivity (Inhouse) 0.49 mg/dL (< or = 0.5)
[2024-03-22] MEDS: Cilostazol 100 MG TAB PO SCH ×2 (14:03→21:11)
[2024-03-22] MEDS: DULoxetine 60 MG CAP PO SCH (14:03)
[2024-03-22] MEDS: Gabapentin 300 MG CAP PO SCH (18:03)
[2024-03-22] MEDS: Vancomycin (BATCH) 1.5 GM in Premix 1 BAG IVPB SCH (21:13)
[2024-03-23 04:28] LABS: Vancomycin, Random 21.7 ug/mL (See Comment)
[2024-03-23 08:44] VITALS: BP 108/68; TEMP 98
[2024-03-23 09:18] LABS: Vancomycin, Random 15.1 ug/mL (See Comment)
[2024-03-23] MEDS: DULoxetine 60 MG CAP PO SCH (09:54)
[2024-03-23] MEDS: Vancomycin (BATCH) 1.25 GM in Premix 1 BAG IVPB SCH (12:52)
[2024-03-23] MEDS ORDERED: Vancomycin (BATCH) 1.25 GM in Premix 1 BAG IVPB SCH (23:59)
== END 2024-03-23 14:59 | DRG 300 ==
LOC: EEVIPCON 20:19 → ERS 20:19 → T4-B 03-20 03:55 → OBSVTOIN 03-22 13:20
PROVIDERS: ADMIT Internal Medicine; ATTEND Internal Medicine
DX: E11.51 Type 2 diabetes mellitus with diabetic peripheral angiopathy without gangrene (principal); E11.52 Type 2 diabetes mellitus with diabetic peripheral angiopathy with gangrene; I50.22 Chronic systolic (congestive) heart failure; I70.261 Atherosclerosis of native arteries of extremities with gangrene, right leg; G89.18 Other acute postprocedural pain; I25.5 Ischemic cardiomyopathy; I11.0 Hypertensive heart disease with heart failure; J44.9 Chronic obstructive pulmonary disease, unspecified; E78.5 Hyperlipidemia, unspecified; K21.9 Gastro-esophageal reflux disease without esophagitis; I25.10 Atherosclerotic heart disease of native coronary artery without angina pectoris; Z79.82 Long term (current) use of aspirin; Z79.899 Other long term (current) drug therapy; Z89.411 Acquired absence of right great toe; Z89.421 Acquired absence of other right toe(s); Z95.810 Presence of automatic (implantable) cardiac defibrillator; Z87.891 Personal history of nicotine dependence; Z98.890 Other specified postprocedural states; Z90.49 Acquired absence of other specified parts of digestive tract
CPT/HCPCS: 36415; 80048; 80053; 80202; 82565; 83605; 85025; 86141; 87040; 93005; 96372; 96376; 97139; G0378; J0692; J1644; J2270; J3370; J3370-JW; J3490; Q9967

== ENCOUNTER 2024-04-11 13:44 | Inpatient (IN) | payer OTHER ==
[2024-04-11] MEDS ORDERED: Iopamidol-370 76% 500 ML MDV (1 ML CHARGE) ONE (14:18)
[2024-04-11] MEDS ORDERED: HYDROcodone/Acetaminophen 5/325 mg Tablet ONE (14:30)
[2024-04-11 14:43] LABS: #Basophils 0.05 10x3/uL (0.0-0.2); %Basophils 0.5 % (0.0-1.0); %Eosinophils 2.2 % (0.0-10.0); %Lymphocytes 14.8 % (21.0-51.0); %Monocytes 14.4 % (0.0-10.0); %Neutrophils 67.9 % (42.0-75.0); Hematocrit 29.3 % (42.0-52.0); Hemoglobin 10.1 g/dL (14.0-18.0); Mean Corpuscular HGB CONC 34.5 g/dL (32.0-36.0); Mean Corpuscular Volume 92.7 fL (78.0-98.0); Mean Platelet Volume 8.9 fL (7.4-10.4); Platelet Count 313 10x3/uL (130-400); RBC Distribution Width 12.1 % (11.5-14.5); Red Blood Cell (RBC) Count 3.16 mill/uL (4.70-6.10)
[2024-04-11 15:02] LABS: ALT (SGPT) 30 U/L (8-55); AST (SGOT) 29 U/L (5-34); Albumin 3.3 g/dL (3.4-4.8); Alkaline Phosphatase 47 U/L (40-110); Anion Gap 17 mmol/L (10-20); BUN (Urea Nitrogen) 12 mg/dL (8.4-25.7); Bilirubin, Total 0.7 mg/dL (0.2-1.2); Calc. Creatinine Clearance 0 mL/min (70-130); Calcium 9.5 mg/dL (7.8-10.44); Carbon Dioxide 21 mmol/L (23-31); Chloride 106 mmol/L (98-107); Estimated GFR 99; Globulin 4.3 g/dL (2.4-3.5); Glucose 121 mg/dL (80-115); Potassium 3.7 mmol/L (3.5-5.1); Protein, Total 7.6 g/dL (5.8-8.1); Sodium 140 mmol/L (136-145)
[2024-04-11] MEDS ORDERED: CEFAZOLIN 1 GM VIAL ONE (16:22)
[2024-04-11] MEDS ORDERED: Sodium Chloride 0.9% 100 ML ONE (16:22)
[2024-04-11] MEDS ORDERED: Morphine 4 MG/ML VIAL ONE (16:40)
[2024-04-11] MEDS ORDERED: Dextrose 50% Abboject 50 ML SYRINGE SLOW IVP PRN (18:53)
[2024-04-11] MEDS ORDERED: Dextrose 5% in Water 1,000 ML IV PRN (18:53)
[2024-04-11] MEDS ORDERED: Glucagon 1 MG/ML KIT IM PRN (18:53)
[2024-04-11] MEDS ORDERED: HYDROcodone/Acetaminophen 5/325 mg Tablet PO PRN (18:55)
[2024-04-11] MEDS ORDERED: Insulin Lispro 100 UNIT/ML 10 ML VIAL SC PRN (18:56)
[2024-04-11 18:59] VITALS: BMI 37.1
[2024-04-11] MEDS: Famotidine 20 MG TAB PO SCH (20:59)
[2024-04-11] MEDS: Ampicillin/Sulbactam 3 GM in Sodium Chloride 0.9% 100 ML IVPB SCH (21:00)
[2024-04-11] MEDS: traMADol HCl 50 MG TAB PO PRN (21:00)
[2024-04-11] MEDS: Acetaminophen 325 MG TAB PO SCH (21:00)
[2024-04-12] MEDS: Ampicillin/Sulbactam 3 GM in Sodium Chloride 0.9% 100 ML IVPB SCH ×2 (00:19→03:55)
[2024-04-12] MEDS: Ketorolac Tromethamine 30 MG (1 mL) VIAL IVP SCH (00:21)
[2024-04-12] MEDS: HYDROcodone/Acetaminophen 5/325 mg Tablet PO PRN (00:34)
[2024-04-12] MEDS: Ampicillin/Sulbactam 3 GM VIAL ONE (03:46)
[2024-04-12 06:10] LABS: #Basophils 0.04 10x3/uL (0.0-0.2); %Basophils 0.5 % (0.0-1.0); %Eosinophils 3.5 % (0.0-10.0); %Lymphocytes 19.4 % (21.0-51.0); %Monocytes 14.4 % (0.0-10.0); Hemoglobin 10.3 g/dL (14.0-18.0); Mean Corpuscular HGB CONC 33.2 g/dL (32.0-36.0); Mean Corpuscular Hemoglobin 31.6 pg (27.0-31.0); Mean Corpuscular Volume 95.1 fL (78.0-98.0); Mean Platelet Volume 8.7 fL (7.4-10.4); Platelet Count 330 10x3/uL (130-400); RBC Distribution Width 12.1 % (11.5-14.5); Red Blood Cell (RBC) Count 3.26 mill/uL (4.70-6.10)
[2024-04-12 06:52] LABS: Anion Gap 15 mmol/L (10-20); BUN (Urea Nitrogen) 13 mg/dL (8.4-25.7); CRP,High Sensitivity (Inhouse) 2.43 mg/dL (< or = 0.5); Calc. Creatinine Clearance 129 mL/min (70-130); Calcium 9.2 mg/dL (7.8-10.44); Carbon Dioxide 23 mmol/L (23-31); Chloride 101 mmol/L (98-107); Estimated GFR 86; Glucose 91 mg/dL (80-115); Potassium 3.7 mmol/L (3.5-5.1); Sodium 135 mmol/L (136-145)
[2024-04-12] MEDS: DULoxetine 60 MG CAP PO SCH (09:07)
[2024-04-12] MEDS: Gabapentin 300 MG CAP PO SCH (09:07)
[2024-04-12] MEDS: Enoxaparin 40 MG (0.4 mL) SYRINGE SC SCH (09:07)
[2024-04-12] MEDS: Aspirin Chewable 81 MG TAB PO SCH (09:07)
[2024-04-12] MEDS: Spironolactone 25 MG TAB PO SCH (09:07)
[2024-04-12] MEDS: Isosorbide Dinitrate 20 MG TAB PO SCH (09:07)
[2024-04-12] MEDS: Sacubitril 49 MG/Valsartan 51 MG TABLET PO SCH (09:07)
[2024-04-12] MEDS: Cilostazol 100 MG TAB PO SCH (09:08)
[2024-04-12] MEDS: Atorvastatin Calcium 40 MG TAB PO SCH (09:08)
[2024-04-12] MEDS: Pantoprazole DR 40 MG TAB PO SCH (09:08)
[2024-04-13 15:17] VITALS: BMI 37.1
[2024-04-13] MEDS: LevoFLOXacin 500 MG TAB PO SCH (15:31)
[2024-04-14] MEDS: LevoFLOXacin 500 MG TAB PO SCH (05:02)
[2024-04-14 21:45] VITALS: BP 134/75; TEMP 97.4
== END 2024-04-14 21:53 | disposition short-term general hospital (02) | DRG 638 ==
LOC: ERS 13:44 → T4-A 17:11
PROVIDERS: ADMIT Family Medicine; ATTEND Internal Medicine
DX: E11.621 Type 2 diabetes mellitus with foot ulcer (principal); I50.22 Chronic systolic (congestive) heart failure; E11.51 Type 2 diabetes mellitus with diabetic peripheral angiopathy without gangrene; L08.9 Local infection of the skin and subcutaneous tissue, unspecified; I73.9 Peripheral vascular disease, unspecified; J44.9 Chronic obstructive pulmonary disease, unspecified; I11.0 Hypertensive heart disease with heart failure; Z90.49 Acquired absence of other specified parts of digestive tract; I25.10 Atherosclerotic heart disease of native coronary artery without angina pectoris; Z79.899 Other long term (current) drug therapy; Z87.891 Personal history of nicotine dependence; Z79.82 Long term (current) use of aspirin
CPT/HCPCS: 36415; 36416; 80048; 80053; 83605; 85025; 86141; 87070; 87077; 87186; 87205; 96365; 96374; 97139; J0295; J0690; J1650; J1885; J2270; J3490; Q9967

== ENCOUNTER 2024-05-02 10:48 | Emergency (ER) | payer OTHER ==
[2024-05-02] MEDS ORDERED: Iopamidol-370 76% 500 ML MDV (1 ML CHARGE) ONE (11:47)
[2024-05-02] MEDS ORDERED: HYDROmorphone 0.5 MG/0.5 ML SYRINGE ONE ×2 (12:36→16:19)
[2024-05-02] MEDS ORDERED: Ketorolac Tromethamine 30 MG (1 mL) VIAL ONE (12:36)
[2024-05-02 12:50] LABS: #Basophils 0.08 10x3/uL (0.0-0.2); %Basophils 0.8 % (0.0-1.0); %Eosinophils 3.6 % (0.0-10.0); %Lymphocytes 17.3 % (21.0-51.0); %Monocytes 13.8 % (0.0-10.0); %Neutrophils 64.1 % (42.0-75.0); Hematocrit 30.1 % (42.0-52.0); Mean Corpuscular HGB CONC 33.2 g/dL (32.0-36.0); Mean Corpuscular Hemoglobin 30.1 pg (27.0-31.0); Mean Corpuscular Volume 90.7 fL (78.0-98.0); Mean Platelet Volume 8.2 fL (7.4-10.4); Platelet Count 518 10x3/uL (130-400); RBC Distribution Width 12.4 % (11.5-14.5); Red Blood Cell (RBC) Count 3.32 mill/uL (4.70-6.10)
[2024-05-02 13:08] LABS: ALT (SGPT) 28 U/L (8-55); AST (SGOT) 27 U/L (5-34); Albumin 3.2 g/dL (3.4-4.8); Alkaline Phosphatase 63 U/L (40-110); Anion Gap 10 mmol/L (10-20); BUN (Urea Nitrogen) 10 mg/dL (8.4-25.7); Bilirubin, Total 0.7 mg/dL (0.2-1.2); CK (CPK) 154 U/L (30-200); Calc. Creatinine Clearance 0 mL/min (70-130); Calcium 9.5 mg/dL (7.8-10.44); Carbon Dioxide 21 mmol/L (23-31); Chloride 104 mmol/L (98-107); Estimated GFR 100; Globulin 4.5 g/dL (2.4-3.5); Glucose 104 mg/dL (80-115); Potassium 3.8 mmol/L (3.5-5.1); Protein, Total 7.7 g/dL (5.8-8.1); Sodium 131 mmol/L (136-145)
[2024-05-02] MEDS ORDERED: Vancomycin 1 GM/200 ML (FROZEN) BAG ONE (14:31)
[2024-05-02] MEDS ORDERED: Piperacillin/Tazobactam 3.375 GM VIAL ONE (14:31)
[2024-05-02] MEDS ORDERED: Sodium Chloride 0.9% 100 ML ONE (14:33)
== END 2024-05-02 16:41 | disposition short-term general hospital (02) ==
LOC: ERS 10:48 → EEVIPCON 10:48 → ERS 16:41
DX: I74.5 Embolism and thrombosis of iliac artery (principal); I96 Gangrene, not elsewhere classified; I11.0 Hypertensive heart disease with heart failure; I50.9 Heart failure, unspecified; J44.9 Chronic obstructive pulmonary disease, unspecified; Z87.891 Personal history of nicotine dependence; Z95.0 Presence of cardiac pacemaker; Z79.82 Long term (current) use of aspirin; Z79.899 Other long term (current) drug therapy; Z55.6 Problems related to health literacy; Z75.3 Unavailability and inaccessibility of health-care facilities
CPT/HCPCS: 36415; 75635; 80053; 82550; 83605; 85025; 87040; 93005; 96365; 96366; 96368; 96375; 96376; J1170; J1885; J2543; J3370-JW; J3490; Q9967